=== PATIENT | male | born 1960 | race African-American/Black ===

== ENCOUNTER → 2020-06-14 11:17 | Outpatient (BNVA) | payer MEDICARE, MEDICAID, SELFPAY | PROVIDERS: PCP Internal Medicine Geriatric Medicine; Visit Provider Surgery Vascular Surgery | DX: I83.12 Varicose veins of left lower extremity with inflammation (principal) | CPT/HCPCS: 99203 ==

== ENCOUNTER 2020-06-23 12:49 | Outpatient (REF) | payer MEDICARE, MEDICAID, SELFPAY ==
--- NOTE | 2020-06-23 12:52 | US_ITS ---
EXAMINATION: RIGHT and LEFT LOWER EXTREMITY VENOUS ULTRASOUND (Reflux Exam) CLINICAL INDICATION: Varicose veins with inflammation COMPARISON: None. TECHNIQUE: Color flow triplex imaging and compression Doppler was performed to evaluate both the deep and the superficial systems bilaterally. To evaluate the superficial system, the examination was performed in the upright position. Color-flow Doppler ultrasound and compression ultrasound were utilized. In addition, maneuvers were utilized to demonstrate reflux. FINDINGS: 1. DEEP VENOUS ULTRASOUND OF THE RIGHT LOWER EXTREMITY: Respiratory variation, normal compression and augmented flow are noted in the right common femoral vein as well as the right popliteal vein and there is no evidence of deep venous thrombosis at these locations. There is no evidence of reflux in the deep system in either the common femoral vein or the popliteal vein. There is some reflux seen in the mid superficial femoral vein of approximately 1.5 seconds but not at the saphenofemoral junction. There is no evidence of a popliteal fossa cyst. No popliteal artery aneurysm. 2. SUPERFICIAL ULTRASOUND WITH DOPPLER OF RIGHT LOWER EXTREMITY: The right great saphenous vein at the saphenofemoral junction measures 7 mm, at the mid thigh 4 mm, dusiv-usj-[id number] 4 mm, sjkbd-[id number]-[id number] 4 mm, at mid calf 3 mm with nonsignificant reflux, and at the ankle measures 3 mm. There is no reflux demonstrated in the right great saphenous vein. The right small saphenous vein measures 2 mm and shows no reflux. 3. DEEP VENOUS ULTRASOUND OF THE LEFT LOWER EXTREMITY: Respiratory variation, normal compression and augmented flow are noted in the left common femoral vein as well as the left popliteal vein and there is no evidence of deep venous thrombosis at these locations. There is no evidence of reflux in the deep system in either the common femoral vein or the popliteal vein. . There is no evidence of a popliteal fossa cyst. No popliteal artery aneurysm. 4. SUPERFICIAL ULTRASOUND WITH DOPPLER OF LEFT LOWER EXTREMITY: Left great saphenous vein at the saphenofemoral junction measures 6 mm, at the mid thigh 9 mm, lwjbm-[id number] 6 mm, mrrrn-ipp-zdef 4 mm, at mid calf 3 mm and at the ankle measures 3 mm. There is no reflux at the saphenofemoral junction. There is reflux up to 2.7 seconds only at the ankle.. The left small saphenous vein measures 4 mm and shows no reflux. US/US venous duplex LE BI IMPRESSION: 1. No evidence of reflux or thrombus in the common femoral veins or popliteal veins bilaterally. 2. The saphenous systems are patent bilaterally. No reflux at the saphenofemoral junctions.
== END 2020-06-23 12:50 | disposition home or self-care (01) ==
LOC: HO.US 12:49
PROVIDERS: PCP Internal Medicine Geriatric Medicine; Visit Provider Surgery Vascular Surgery
DX: I83.12 Varicose veins of left lower extremity with inflammation (principal)
CPT/HCPCS: 93970

== ENCOUNTER → 2020-06-28 08:56 | Outpatient (BNVA) | payer MEDICARE, MEDICAID, SELFPAY | PROVIDERS: PCP Internal Medicine Geriatric Medicine; Referring Provider Internal Medicine Geriatric Medicine; Visit Provider Nurse Practitioner | DX: K58.2 Mixed irritable bowel syndrome (principal); R14.0 Abdominal distension (gaseous); D12.2 Benign neoplasm of ascending colon; B37.0 Candidal stomatitis; Z98.890 Other specified postprocedural states | CPT/HCPCS: 99213 ==

== ENCOUNTER 2020-10-06 09:42 | Outpatient (REF) | payer MEDICARE, MEDICAID, SELFPAY ==
--- NOTE | 2020-10-06 | US_ITS ---
EXAMINATION: US ABDOMEN COMPLETE CLINICAL INFORMATION: Right upper quadrant pain. COMPARISON: Renal ultrasound 09/15/2018. Ultrasound abdomen 01/10/2018. TECHNIQUE: Real-time imaging of the abdominal viscera. FINDINGS: PANCREAS: Pancreatic head and body are unremarkable. The tail is obscured by gas. ABDOMINAL AORTA: The proximal and mid segments are normal. The distal aspect is not visualized due to bowel gas. INFERIOR VENA CAVA: Visualized portions are normal. LIVER: The liver is normal in size. The liver contour is normal. There is diffuse increased liver parenchymal echogenicity, consistent with hepatic steatosis. No focal hepatic lesion. There is no intrahepatic biliary duct dilatation seen. GALLBLADDER: Normal. The gallbladder is physiologically distended without evidence of stones, sludge, polyps, wall thickening or pericholecystic fluid. COMMON BILE DUCT: Normal in caliber measuring 0.4 cm in diameter. RIGHT KIDNEY: There is a echogenic focus at the midpole cortex measuring 0.2 cm which could represent a calculus. There is a complex cyst at the midpole measuring 0.9 cm with internal thin septation. No hydronephrosis or renal calculi. The kidney measures 10.7 cm in maximum dimension. LEFT KIDNEY: Lobulated Contour. No hydronephrosis. No renal calculi or focal parenchymal lesions. The kidney measures 11.0 cm in maximum dimension. SPLEEN: Normal. The spleen measures 9.8 cm in maximum dimension. FREE FLUID: None. US/US abdomen complete IMPRESSION: Hepatic steatosis. Unremarkable appearance of the gallbladder. Septated cyst at the midpole of the right kidney. This is similar to prior.
== END 2020-10-06 09:43 | disposition home or self-care (01) ==
LOC: HO.US 09:42
PROVIDERS: Visit Provider Family Medicine
DX: R10.11 Right upper quadrant pain (principal)
CPT/HCPCS: 76700

== ENCOUNTER 2021-01-25 13:00 | Outpatient (RCR) | payer MEDICARE, MEDICAID, SELFPAY | END 2021-03-03 09:37 | disposition home or self-care (01) | LOC: HO.PT 13:00 | PROVIDERS: PCP Internal Medicine Geriatric Medicine; Visit Provider Physician Assistant | DX: M54.5 Low back pain (principal); M48.061 Spinal stenosis, lumbar region without neurogenic claudication | CPT/HCPCS: 97110; 97162 ==

== ENCOUNTER 2021-10-02 14:06 | Outpatient (REF) | payer MEDICARE, MEDICAID, SELFPAY ==
[2021-10-02 15:14] LABS: MANUAL DIFF FLAG NO
[2021-10-02 15:33] LABS: Basophils Percent Auto 0.2 % (0-2); Eosinophils Absolute Auto 0.1 X10*3/uL (0.0-0.4); Eosinophils Percent Auto 1.7 % (0-4); Hematocrit 41.2 % (42.0-52.0); Hemoglobin 13.8 g/dl (14.0-18.0); Imm Gran Abs Auto 0.01 X10*3/uL (0.00-0.03); Imm Gran Pct Auto 0.2 % (0.0-0.4); Lymphocytes Absolute Auto 1.5 X10*3/uL (1.2-4.9); Lymphocytes Percent Auto 31.9 % (20-40); Mean Corpuscular HGB Conc 33.5 g/dl (31.0-36.0); Mean Corpuscular Hemoglobin 31.9 pg (27.0-33.0); Mean Corpuscular Volume 95.4 fL (80.0-98.0); Mean Platelet Volume 10.4 fL (9.4-12.4); Monocytes Absolute Auto 0.4 X10*3/uL (0.1-1.2); Monocytes Percent Auto 9.2 % (2-11); Neutrophils Absolute Auto 2.7 x10*3/uL (2.0-8.3); Neutrophils Percent Auto 56.8 % (45-73); Platelet Count 151 X10*3/uL (160-400); Red Blood Count 4.32 X10*6/uL (4.60-5.80); Red Cell Distribution Width 12.3 % (11.0-16.0); White Blood Count 4.8 X10*3/uL (4.8-10.8)
[2021-10-02 15:59] LABS: Alanine Aminotransferase 33 U/L (0-40); Albumin Level 4.6 g/dL (3.5-5.0); Alkaline Phosphatase 63 U/L (39-117); Anion Gap 11 (12-20); Aspartate Amino Transferase 31 U/L (5-37); Blood Urea Nitrogen 15 mg/dL (9-16); Calcium 10.3 mg/dL (8.4-10.2); Carbon Dioxide 28 mmol/L (22-29); Chloride 105 mmol/L (96-108); Estimated Glomerular Filt Rate > 60; Glucose Random 98 mg/dL (60-115); Potassium 4.4 mmol/L (3.3-5.1); Sodium 140 mmol/L (135-145); Total Protein 8.3 g/dL (6.5-8.0)
[2021-10-02 16:21] LABS: TSH reflex Free T4 2.01 uIU/mL (0.32-4.0)
== END 2021-10-02 14:07 | disposition home or self-care (01) ==
LOC: HO.LAB 14:06
PROVIDERS: PCP Internal Medicine Geriatric Medicine; Referring Provider Internal Medicine Geriatric Medicine; Visit Provider Nurse Practitioner
DX: K59.04 Chronic idiopathic constipation (principal); D12.6 Benign neoplasm of colon, unspecified; Z12.11 Encounter for screening for malignant neoplasm of colon
CPT/HCPCS: 36415; 80053; 84443; 85025; 99212

== ENCOUNTER → 2021-11-03 14:24 | Outpatient (BNVA) | payer MEDICARE, MEDICAID, SELFPAY | PROVIDERS: PCP Internal Medicine Geriatric Medicine; Visit Provider Nurse Practitioner | DX: K59.04 Chronic idiopathic constipation (principal); D12.6 Benign neoplasm of colon, unspecified | CPT/HCPCS: 99212 ==

== ENCOUNTER 2022-03-08 05:16 | Emergency (ER) | payer MEDICARE, MEDICAID, SELFPAY ==
[2022-03-08 05:23] VITALS: BP 166/90; PULSE 72; RESP 16; TEMP 36.7; O2SAT 96; BMI 28.7
--- NOTE | 2022-03-08 05:38 | ECG_ITS ---
Test Reason : ABDOMINAL PAIN Blood Pressure : / mmHG Vent. Rate : 068 BPM Atrial Rate : 068 BPM P-R Int : 168 ms QRS Dur : 090 ms QT Int : 404 ms P-R-T Axes : 065 009 027 degrees QTc Int : 429 ms Normal sinus rhythm Normal ECG No previous ECGs available Referred By: Anabela Luevano Electronically Signed By:Brent Navas
--- NOTE | 2022-03-08 05:39 | ED.GENADULT ---
HPI - General Adult General Chief complaint: General Medical Stated complaint: unable to urinate, constipation Time Seen by Provider: 03/08/22 05:34 Source: patient Mode of arrival: ambulatory Limitations: no limitations History of Present Illness HPI narrative: Patient comes to the emergency room complaining of abdominal pain. Patient states that he has been unable to pass significant amounts of urine for 2 days, patient states that he also have rectal pressure. Also complaining of diffuse abdominal distension. Patient denies nausea vomiting or diarrhea, no fever chills Related Data Home Medications Medication Instructions Recorded Confirmed albuterol sulfate 90 mcg/actuation 2 puff inhalation Q4-6H PRN 06/14/20 12/22/21 aerosol inhaler (Ventolin HFA) Wheezing ammonium lactate 12 % topical cream 1 applic topical BID 06/14/20 12/22/21 bupropion HCl 150 mg 24 hr tablet, 150 mg PO QAM 06/14/20 12/22/21 extended release chlorhexidine gluconate 0.12 % 15 ml buccal BID 06/14/20 12/22/21 mouthwash (Periogard) cyclobenzaprine 10 mg tablet 10 mg PO TID 06/14/20 12/22/21 diclofenac sodium 1 % topical gel 2 g topical QID 06/14/20 12/22/21 (Voltaren) fluticasone propionate 50 1 spray intranasal DAILY 06/14/20 12/22/21 mcg/actuation nasal spray,suspension levocetirizine 5 mg tablet 5 mg PO DAILY 06/14/20 12/22/21 nabumetone 750 mg tablet 750 mg PO BID 06/14/20 12/22/21 sertraline 50 mg tablet 50 mg PO DAILY 06/14/20 12/22/21 tamsulosin 0.4 mg capsule 0.4 mg PO DAILY 06/14/20 12/22/21 terbinafine HCl 1 % topical cream 1 applic topical BID 06/14/20 12/22/21 triamcinolone acetonide 0.5 % 1 applic topical BID 06/14/20 12/22/21 topical cream sildenafil 100 mg tablet (Viagra) 0.5 tab PO DAILY PRN Sexual 12/22/21 12/22/21 Activity Previous Rx's Medication Instructions Recorded nystatin 100,000 unit/mL oral 1 ml PO TID #473 mL 06/28/20 suspension peg 3350-electrolytes 236 240 ml PO Q10M 1 day #4,000 mL 10/02/21 gram-22.74 gram-6.74 gram-5.86 gram solution (Golytely) sennosides 8.6 mg capsule (senna) 17.2 mg PO BEDTIME constipation 30 10/02/21 days #60 caps docusate sodium 100 mg capsule 100 mg PO .DAILY WITH FOOD 30 days 11/03/21 (Colace) #30 caps polyethylene glycol 3350 17 17 g PO BID #238 grams 03/08/22 gram/dose oral powder (Miralax) tamsulosin 0.4 mg capsule 0.4 mg PO BEDTIME #10 caps 03/08/22 Allergies Allergy/AdvReac Type Severity Reaction Status Date / Time No Known Allergies Allergy Verified 12/22/21 13:42 [No Known Allergies*] Review of Systems Review of Systems: Constitutional : No Weight loss, No Fever, No Chills, No Night Sweats, No Fatigue, No Malaise ENT/Mouth : No Hearing loss, No Ear Pain, No Nasal Congestion, No Sinus Pain, No Hoarseness, No sore throat, No Rhinorrhea, No Swallowing Difficulty Eyes: No Eye Pain, No Swelling, No Redness, No Foreign Body, No Discharge, No Vision Changes Cardiovascular : No Chest Pain, No SOB, No Dyspnea on Exertion, No Orthopnea, No Edema, No Palpitations Respiratory : No Cough, No Sputum, No Wheezing, No Smoke Exposure, No Dyspnea Gastrointestinal : No nausea vomiting or diarrhea, complaining of abdominal distension, suprapubic pain, rectal pressure Genitourinary : no irregular bleeding, No Dysuria, No Urinary Frequency, No Hematuria, No Urinary Incontinence, No Urgency, No Flank Pain, No Urinary Flow Changes, No Hesitancy Musculoskeletal : No joint pain, No Myalgias, No Joint Swelling Skin : No Skin Lesions, No rash Neuro : No Weakness, No Numbness, No Paresthesias, No Loss of Consciousness, No Dizziness, No Headache Psych : No Anxiety/Panic, No Depression, No SI/HI/AH/VH, No Social Issues, Heme/Lymph: No Bruising, No Bleeding,No Lymphadenopathy Endocrine : No Polyuria, No Polydipsia, No Temperature Intolerance [facility] Past Medical History Medical History Anxiety Blurred vision, bilateral Depression Fatty liver HTN (hypertension) Hx of simple renal cyst PVC (premature ventricular contraction) Surgical History History of colonoscopy Hx of endoscopy Family History Family History Father No problems noted. Mother History of cancer Social History Social History Alcohol intake: current Alcohol intake frequency: a few times a month Advance Directives: No Advance Directives Information Provided: Yes Physical Exam ED Vital Signs: Vital Signs - 24 hr 03/08/22 05:23 Temperature 98.0 F Pulse Rate 72 Respiratory Rate 16 Blood Pressure 166/90 H Pulse Oximetry 96 Oxygen Delivery Method Room Air BMI result Body Mass Index 28.7 Const Other: Appearance: Alert. Oriented X3. No acute distress. Eyes: Pupils equal, round and reactive to light. ENT: Pharynx normal. Neck: Normal inspection. Neck supple. No lymph nodes noted. No crepitus CVS: Normal heart rate and rhythm. Pulses normal. Normal S1 and S2 Respiratory: No respiratory distress. Breath sounds normal. No Wheezing. No rales Abdomen: Soft , moderately distended, tender to palpation over the suprapubic area Skin: Skin warm and dry. Normal skin color. Normal skin turgor. Extremities: No lower extremity edema. No Lacerations. No Rash Neuro: Oriented X 3. No motor deficit. No sensory deficit. Moving all extremities. No slurred speech. CN 2 through 12 grossly intact Psych: calm, cooperative, normal affect Course Course Course Narrative: Patient was bladder scanned, patient has 886 mL of urine. Patient unable to urinate. Nino catheter will be inserted Patient's chemistry is pending. Urinalysis negative for UTI, white blood cell count within normal limits. Is likely that all of patient's symptoms are secondary to urinary retention. This is the 1st time the patient has urinary retention. Patient states that he suffers from chronic constipation, when it becomes severe, he sometimes has urinary retention. Medical Decision Making Lab Data Result diagrams: 03/08/22 05:57 03/08/22 05:57 Labs: Lab Results 03/08/22 03/08/22 03/08/22 Range/Units 05:57 05:57 06:13 WBC 5.5 (4.8-10.8) X10*3/uL RBC 4.18 L (4.60-5.80) X10*6/uL Hgb 13.5 L (14.0-18.0) g/dl Hct 39.1 L (42.0-52.0) % MCV 93.5 (80.0-98.0) fL MCH 32.3 (27.0-33.0) pg MCHC 34.5 (31.0-36.0) g/dl RDW 12.4 (11.0-16.0) % Plt Count 145 L (160-400) X10*3/uL MPV 9.9 (9.4-12.4) fL Immature Gran % (Auto) 0.2 (0.0-0.4) % Neut % (Auto) 68.5 (45-73) % Lymph % (Auto) 20.6 (20-40) % [place] % (Auto) 9.0 (2-11) % Eos % (Auto) 1.5 (0-4) % Baso % (Auto) 0.2 (0-2) % Lymph # (Auto) 1.1 L (1.2-4.9) X10*3/uL [place] # (Auto) 0.5 (0.1-1.2) X10*3/uL Eos # (Auto) 0.1 (0.0-0.4) X10*3/uL Baso # (Auto) 0.0 (0.0-0.2) X10*3/uL Abs Immat Gran (auto) 0.01 (0.00-0.03) X10*3/uL Absolute Neuts (auto) 3.7 (2.0-8.3) x10*3/uL Absolute Nucleated RBC 0.000 (0.0-0.012) X10*3/uL Nucleated RBC % (auto) 0.0 (0.0-0.2) /100WBC Sodium 141 (135-145) mmol/L Potassium 4.2 (3.3-5.1) mmol/L Chloride 108 (96-108) mmol/L Carbon Dioxide 25 (22-29) mmol/L Anion Gap 12 (12-20) BUN 16 (9-16) mg/dL Creatinine 0.93 (0.5-1.4) mg/dL Estim Creat Clear Calc 94.9 Estimated GFR > 60 Random Glucose 136 H D (60-115) mg/dL Calcium 9.3 D (8.4-10.2) mg/dL Total Bilirubin 0.6 (0.0-1.0) mg/dL Direct Bilirubin 0.3 (0.0-0.5) mg/dL AST 46 H D (5-37) U/L ALT 81 H (0-40) U/L Alkaline Phosphatase 60 (39-117) U/L Total Protein 7.7 (6.5-8.0) g/dL Albumin 4.4 (3.5-5.0) g/dL Lipase 24 (8-78) U/L Urine Color YELLOW Urine Appearance CLEAR Urine pH 6.0 (5.0-8.0) Ur Specific [place] 1.015 (1.005-1.025) Urine Protein NEG (NEG-TRACE) MG/DL Urine Glucose (UA) NEG (NEG) MG/DL Urine Ketones NEG (NEG) MG/DL Urine Blood TRACE (NEG) Urine Nitrite NEG (NEG) Ur Leukocyte Esterase NEG (NEG) Urine RBC 1-4 (0) /HPF Urine WBC 0 (0-4) /HPF Ur Squamous Epith Cells TRACE /LPF Urine Bacteria TRACE /LPF Urine Mucus 1+ /LPF Discharge Plan Discharge Clinical Impression: Acute urinary retention, Constipation Patient Disposition: Home, Self-Care Instructions: Acute Urinary Retention in Women (ED) Additional Instructions: You need to follow-up with urology in 2 days to have your Nino catheter removed. Please follow-up with your primary care physician tomorrow. If you have any worsening or new symptoms, please return to the emergency room or call 911 Prescriptions: New tamsulosin 0.4 mg capsule 0.4 mg PO BEDTIME Qty: 10 0RF polyethylene glycol 3350 [Miralax] 17 gram/dose powder 17 g PO BID Qty: 238 0RF No Action sildenafil [Viagra] 100 mg tablet 0.5 tab PO DAILY PRN (Reason: Sexual Activity) chlorhexidine gluconate [Periogard] 0.12 % mouthwash 15 ml buccal BID albuterol sulfate [Ventolin HFA] 90 mcg/actuation HFA aerosol inhaler 2 puff inhalation Q4-6H PRN (Reason: Wheezing) nabumetone 750 mg tablet 750 mg PO BID diclofenac sodium [Voltaren] 1 % gel 2 g topical QID Rx Instructions: apply to single elbow, wrist or hand; for hand includes palm/fingers/back of hand fluticasone propionate 50 mcg/actuation spray,suspension 1 spray intranasal DAILY Rx Instructions: administer into each nostril levocetirizine 5 mg tablet 5 mg PO DAILY sertraline 50 mg tablet 50 mg PO DAILY bupropion HCl 150 mg tablet extended release 24 hr 150 mg PO QAM cyclobenzaprine 10 mg tablet 10 mg PO TID tamsulosin 0.4 mg capsule 0.4 mg PO DAILY terbinafine HCl 1 % cream 1 applic topical BID triamcinolone acetonide 0.5 % cream 1 applic topical BID ammonium lactate 12 % cream 1 applic topical BID nystatin 100,000 unit/mL suspension 1 ml PO TID Qty: 473 0RF Rx Instructions: swish and swallow senna 8.6 mg capsule 17.2 mg PO BEDTIME 30 Days Qty: 60 6RF peg 3350-electrolytes [Golytely] 236-22.74-6.74 -5.86 gram recon soln 240 ml PO Q10M 1 Days Qty: 4000 0RF Rx Instructions: until fecal effluent is clear; do not exceed a total volume of 2,000 mL docusate sodium [Colace] 100 mg capsule 100 mg PO .DAILY WITH FOOD 30 Days Qty: 30 6RF Referrals: James Singh MD [Physician] - 2 days
[2022-03-08 06:01] LABS: MANUAL DIFF FLAG NO
[2022-03-08 06:05] LABS: Basophils Percent Auto 0.2 % (0-2); Eosinophils Absolute Auto 0.1 X10*3/uL (0.0-0.4); Eosinophils Percent Auto 1.5 % (0-4); Hematocrit 39.1 % (42.0-52.0); Hemoglobin 13.5 g/dl (14.0-18.0); Imm Gran Abs Auto 0.01 X10*3/uL (0.00-0.03); Imm Gran Pct Auto 0.2 % (0.0-0.4); Lymphocytes Absolute Auto 1.1 X10*3/uL (1.2-4.9); Lymphocytes Percent Auto 20.6 % (20-40); Mean Corpuscular HGB Conc 34.5 g/dl (31.0-36.0); Mean Corpuscular Hemoglobin 32.3 pg (27.0-33.0); Mean Corpuscular Volume 93.5 fL (80.0-98.0); Mean Platelet Volume 9.9 fL (9.4-12.4); Monocytes Absolute Auto 0.5 X10*3/uL (0.1-1.2); Neutrophils Absolute Auto 3.7 x10*3/uL (2.0-8.3); Neutrophils Percent Auto 68.5 % (45-73); Platelet Count 145 X10*3/uL (160-400); Red Blood Count 4.18 X10*6/uL (4.60-5.80); Red Cell Distribution Width 12.4 % (11.0-16.0); White Blood Count 5.5 X10*3/uL (4.8-10.8)
[2022-03-08 06:20] LABS: Appearance Urine CLEAR; Color Urine YELLOW; Glucose Urine UA NEG (NEG); Leukocyte Esterase Urine NEG (NEG); Nitrite Urine NEG (NEG); Specific Gravity - Urine 1.015 (1.005-1.025); UACC Culture Trigger NO; Urine Blood TRACE (NEG); Urine Ketones NEG (NEG); Urine Protein NEG (NEG-TRACE)
[2022-03-08 06:26] LABS: Bacteria Urine TRACE /LPF; Mucus Urine 1+ /LPF; Squamous Epithelial Cell Urine TRACE /LPF; WBC Urine 0 /HPF (0-4)
[2022-03-08 06:28] LABS: Alanine Aminotransferase 81 U/L (0-40); Albumin Level 4.4 g/dL (3.5-5.0); Alkaline Phosphatase 60 U/L (39-117); Anion Gap 12 (12-20); Aspartate Amino Transferase 46 U/L (5-37); Bilirubin Direct 0.3 mg/dL (0.0-0.5); Bilirubin Total 0.6 mg/dL (0.0-1.0); Blood Urea Nitrogen 16 mg/dL (9-16); Calcium 9.3 mg/dL (8.4-10.2); Carbon Dioxide 25 mmol/L (22-29); Chloride 108 mmol/L (96-108); Creatinine Clr Calc Pharmacy 94.9; Estimated Glomerular Filt Rate > 60; Glucose Random 136 mg/dL (60-115); Lipase 24 U/L (8-78); Potassium 4.2 mmol/L (3.3-5.1); Sodium 141 mmol/L (135-145); Total Protein 7.7 g/dL (6.5-8.0)
[2022-03-08 07:02] VITALS: BP 115/77; PULSE 58; RESP 16; TEMP 36.6; O2SAT 96
== END 2022-03-08 07:39 | disposition home or self-care (01) ==
PROVIDERS: Emergency Provider Emergency Medicine; PCP Internal Medicine
DX: R33.9 Retention of urine, unspecified (principal); R10.9 Unspecified abdominal pain; K59.00 Constipation, unspecified; Z79.899 Other long term (current) drug therapy
CPT/HCPCS: 36415; 51702; 51798; 80048; 80076; 81001; 83690; 85025; 93005; 99284

== ENCOUNTER → 2022-03-23 09:04 | Outpatient (BNVA) | payer MEDICARE, MEDICAID, SELFPAY | PROVIDERS: PCP Internal Medicine; Visit Provider Urology | DX: Z46.6 Encounter for fitting and adjustment of urinary device (principal); R33.9 Retention of urine, unspecified | CPT/HCPCS: 51700; 51798 ==

== ENCOUNTER 2022-03-27 13:28 | Outpatient (REF) | payer MEDICARE, MEDICAID, SELFPAY ==
[2022-03-27 14:55] LABS: Appearance Urine CLEAR; Color Urine YELLOW; Glucose Urine UA NEG (NEG); Leukocyte Esterase Urine 1+ (NEG); Nitrite Urine NEG (NEG); PH 5.5 (5.0-8.0); Specific Gravity - Urine 1.025 (1.005-1.025); Urine Blood NEG (NEG); Urine Ketones NEG (NEG); Urine Protein NEG (NEG-TRACE)
[2022-03-27 15:06] LABS: Bacteria Urine 1+ /LPF; RBC Urine 0 /HPF (0); Squamous Epithelial Cell Urine 1+ /LPF
== END 2022-03-27 13:29 | disposition home or self-care (01) ==
LOC: HO.LAB 13:28
PROVIDERS: PCP Internal Medicine; Visit Provider Urology
DX: R33.9 Retention of urine, unspecified (principal)
CPT/HCPCS: 81001; 87086

== ENCOUNTER 2022-04-24 11:00 | Day surgery (SDC) | payer MEDICARE, MEDICAID, SELFPAY ==
--- NOTE | 2022-04-24 10:48 | HO.ANESPROP2 ---
HPI - Anesthesia Eval Consult details Narrative: 62 yo male patient for colonoscopy PMFSH Active Problems Active Problems: All Active Problems (Updated 04/02/22 @ 08:57 by Lisette Flores MD) Overweight (BMI 25.0-29.9) (Acute) Anxiety (Acute) Chronic GERD (Acute) Mild recurrent major depression (Acute) Urinary retention (Acute) Varicose veins of left lower extremity with inflammation (Acute) Abdominal bloating (Acute) Pedunculated colonic polyp (Acute) Epigastric burning sensation (Acute) Tubulovillous adenoma of large intestine (Acute) Oral kamron (Acute) Leg pain, bilateral (Acute) Chronic idiopathic constipation (Acute) Past Medical History Medical History Anxiety Blurred vision, bilateral Depression Fatty liver HTN (hypertension) Hx of simple renal cyst PVC (premature ventricular contraction) Family History Family History Father No problems noted. Mother History of cancer Family history of problems with anesthesia: No Surgical History Surgical History History of colonoscopy Hx of endoscopy History of Problems with Anesthesia: No Social History Social History Housing: Apartment Alcohol intake: current Alcohol intake frequency: a few times a month Alcohol type: beer Patient Tobacco Use Status: Never used Tobacco e-Cigarette/Vaping Use: Never Used Second Hand Smoke Exposure: No Advance Directives: No Advance Directives Information Provided: Yes service: No Current occupational status: disabled Cognitive needs: No Hearing needs: No Vision needs: No Meds Allergies Allergy/AdvReac Type Severity Reaction Status Date / Time No Known Allergies Allergy Verified 03/29/22 13:19 [No Known Allergies*] Active Medications: No sildenafil in over 2 weeks Home Medications Medication Instructions Recorded Confirmed Last Taken Type ammonium lactate 12 % topical cream 1 applic topical BID 06/14/20 03/29/22 Unknown History bupropion HCl 150 mg 24 hr tablet, 150 mg PO QAM 06/14/20 03/29/22 Unknown History extended release chlorhexidine gluconate 0.12 % 15 ml buccal BID 06/14/20 03/29/22 Unknown History mouthwash (Periogard) cyclobenzaprine 10 mg tablet 10 mg PO TID 06/14/20 03/29/22 Unknown History diclofenac sodium 1 % topical gel 2 g topical QID 06/14/20 03/29/22 Unknown History (Voltaren) fluticasone propionate 50 1 spray intranasal DAILY 06/14/20 03/29/22 Unknown History mcg/actuation nasal spray,suspension levocetirizine 5 mg tablet 5 mg PO DAILY 06/14/20 03/29/22 Unknown History nabumetone 750 mg tablet 750 mg PO BID 06/14/20 03/29/22 Unknown History sertraline 50 mg tablet 50 mg PO DAILY 06/14/20 03/29/22 Unknown History terbinafine HCl 1 % topical cream 1 applic topical BID 06/14/20 03/29/22 Unknown History triamcinolone acetonide 0.5 % 1 applic topical BID 06/14/20 03/29/22 Unknown History topical cream sildenafil 100 mg tablet (Viagra) 0.5 tab PO DAILY PRN Sexual 12/22/21 03/29/22 Unknown History Activity Exam Exam Date and Time: April 24, 2022 1048 Height,Weight and Vital Signs: Height 5 ft 11 in Weight 81.647 kg Vital Signs Temp Pulse Resp BP Pulse Ox O2 Del Method 04/24/22 11:30 96.8 F 61 16 147/78 H 99 Room Air Airway Mallampati Class: II TM Dist: >3cm Neck ROM: Full Loose/Missing/Broken Teeth: No (Denies broken or loose teeth) Heart: RRR Lungs: CTAB Assessment and Plan Assessment Anesthesia Assessment: Anesthesia Plan Discussed Final Anesthetic Review Family History of Problems with Anesthesia: No History of Problems with Anesthesia: No NPO: Yes ASA Class: II Final Preanesthetic Review: No Changes in Pt Med Stat, Meds/Allgs Chart Reviewed, Consent Obtained/Reviewed and Anes Risks/Benef Reviewed Patient Risk: Low Procedure Risk: Low Assessment/Block/Sedation in SS: Assess/Block/Sedation-SS Anesthetic Plan Anesthetic Plan: MAC: Disposition: Standard PACU
[2022-04-24 11:09] VITALS: BMI 25.1
--- NOTE | 2022-04-24 11:19 | MHC.SHP ---
Pre-Procedural Eval Section A Date of Service: 04/24/22 Section B Chief Complaint: benign neoplasm of colon Details of Present Illness: hx of colon polyp Relevant Family History (Specify if Yes): No Relevant Social History: None Present Medications: see Short Stay Collaborative assessment Medical History: Significant History (Anxiety Blurred vision, bilateral Depression Fatty liver HTN (hypertension) Hx of simple renal cyst PVC (premature ventricular contraction)) History of Previous Operations: Relevant previous surgery/procedure and date(s) (History of colonoscopy Hx of endoscopy) Allergies: Allergies Allergy/AdvReac Type Severity Reaction Status Date / Time No Known Allergies Allergy Verified 03/29/22 13:19 [No Known Allergies*] Review of Systems Sugical H&P ROS: Negative: Constitution, Cardiovascular, Respiratory, Neurological, Psychiatric, Hem-Onc, Allergic/Immunologic, Gastrointestinal, Genitourinary, Musculoskeletal, Integumentary, Endocrine and Eyes/Ears/Nose/Throat Exam Surgical H&P Exam: Normal: HEENT, Normal: Heart, Normal: Lungs, Normal: Extremities, Normal: Abdomen, Normal: Skin and Normal: Neurological Plan Diagnosis/Plan: Unchanged I have reviewed the history and physical and performed a pertinent physical examination on my patient. No changes have occurred unless specified.
[2022-04-24 11:30] VITALS: BP 147/78; PULSE 61; RESP 16; TEMP 36; O2SAT 99
[2022-04-24] MEDS: Lactated Ringers 1,000 ML 50 ML IVCONT (11:44)
--- NOTE | 2022-04-24 12:31 | P.OP_ITS ---
Operative Note Operative Note Date of Service: 04/24/22 Narrative: Operative Information Procedure Description: Colonoscopy Indication: screening, hx of polyps Anesthesia: MAC COLONOSCOPY Instrument: Olympus variable stiffness pediatric scope 190L Colonoscopy Monitoring: Vital signs and clinical assessment, continuous EKG monitoring, Pulse oximetry, Carbon Dioxide monitoring and blood pressure monitoring were done throughout the procedure. Colon withdrawal time was 10 minutes. Procedure: The patient was placed in the left lateral decubitis position and pre-procedure medications were administered. After a digital rectal examination of the ano-rectum, the video colonoscope was inserted into the rectum and advanced through the colon to the cecum/TI. The colonoscope was slowly withdrawn in a retrograde panoramic fashion and the colon mucosa was carefully examined including a retroflexed view of the rectum. Findings and interventions are described below. Procedure Difficulty: easy Findings: Terminal Ileum-normal Cecum:normal Ascending Colon: x 3 sessile polyps 10-12 mm removed with cold snare. One polyp was close to a previously tattooed area. Transverse Colon -normal Descending Colon:normal Sigmoid Colon: mild diverticulosis, 8-10 mm sessile polyp removed with cold snare Rectum: Retroflexion with moderate sized internal hemorrhoids, grade I Anorectum - normal Colon preparation: [place] Bowel Preparation Scale Right colon; 3 Transverse colon: 3 Left colon; 3 (0 = Unprepared colon segment with mucosa not seen due to solid stool that cannot be cleared. 1 = Portion of mucosa of the colon segment seen, but other areas of the colon segment not well seen due to staining, residual stool and/or opaque liquid. 2 = Minor amount of residual staining, small fragments of stool and/or opaque liquid, but mucosa of colon segment seen well. 3 = Entire mucosa of colon segment seen well with no residual staining, small fragments of stool or opaque liquid) Impression and Post Procedure Diagnosis: polyps internal hemorrhoids diverticular disease Plan: High fiber diet leaflet Avoid straining at stool, epsom salts and sitz bath, anusol supps or cream Repeat Colonoscopy in 3 years due to hx of polyps or earlier if clinically indicated o/p EGD due to upper GI sx Above findings were reviewed with the patient and relevant handouts were provided if indicated.
[2022-04-24 12:36] VITALS: BP 90/48; PULSE 52; RESP 16; TEMP 36.2; O2SAT 100
[2022-04-24 12:51] VITALS: BP 108/64; PULSE 55; RESP 16; O2SAT 100
[2022-04-24 13:05] VITALS: BP 125/75; PULSE 66; RESP 16; O2SAT 99
[2022-04-24 13:19] VITALS: BP 158/87; PULSE 54; RESP 16; TEMP 36.6; O2SAT 100
--- NOTE | 2022-04-24 13:51 | PC.NURSE ---
PATIENT TAKING DOOR TO DOOR VAN HOME. PATIENT GIVEN Elizabeth SANCHEZ'S PHONE NUMBER TO CALL WHEN HE GETS HOME TO LET US KNOW HE IS HOME SAFELY.
== END 2022-04-24 13:53 | disposition home or self-care (01) ==
PROVIDERS: PCP Internal Medicine Geriatric Medicine; Visit Provider Internal Medicine Gastroenterology
PROC: 0DJD8ZZ Inspection of Lower Intestinal Tract, Via Natural or Artificial Opening Endoscopic (ICD-10-PCS; CPT 45378; principal; 2022-04-24 12:40)
DX: Z12.11 Encounter for screening for malignant neoplasm of colon (principal); Z86.010 Personal history of colon polyps; D12.2 Benign neoplasm of ascending colon; D12.5 Benign neoplasm of sigmoid colon; K57.30 Diverticulosis of large intestine without perforation or abscess without bleeding; K64.0 First degree hemorrhoids; K59.04 Chronic idiopathic constipation; I10 Essential (primary) hypertension; Z79.899 Other long term (current) drug therapy
CPT/HCPCS: 45385; 88305

== ENCOUNTER 2022-04-27 11:59 | Outpatient (REF) | payer MEDICARE, MEDICAID, SELFPAY ==
[2022-04-27 12:33] LABS: MANUAL DIFF FLAG NO
[2022-04-27 13:40] LABS: Basophils Percent Auto 0.5 % (0-2); Eosinophils Absolute Auto 0.1 X10*3/uL (0.0-0.4); Eosinophils Percent Auto 1.2 % (0-4); Hematocrit 38.7 % (42.0-52.0); Hemoglobin 13.3 g/dl (14.0-18.0); Imm Gran Abs Auto 0.01 X10*3/uL (0.00-0.03); Imm Gran Pct Auto 0.2 % (0.0-0.4); Lymphocytes Absolute Auto 1.1 X10*3/uL (1.2-4.9); Lymphocytes Percent Auto 28.4 % (20-40); Mean Corpuscular HGB Conc 34.4 g/dl (31.0-36.0); Mean Corpuscular Hemoglobin 32.2 pg (27.0-33.0); Mean Corpuscular Volume 93.7 fL (80.0-98.0); Mean Platelet Volume 10.1 fL (9.4-12.4); Monocytes Absolute Auto 0.4 X10*3/uL (0.1-1.2); Monocytes Percent Auto 10.4 % (2-11); Neutrophils Absolute Auto 2.4 x10*3/uL (2.0-8.3); Neutrophils Percent Auto 59.3 % (45-73); Platelet Count 178 X10*3/uL (160-400); Red Blood Count 4.13 X10*6/uL (4.60-5.80); Red Cell Distribution Width 12.1 % (11.0-16.0)
[2022-04-27 13:58] LABS: Alanine Aminotransferase 55 U/L (0-40); Albumin Level 4.5 g/dL (3.5-5.0); Alkaline Phosphatase 71 U/L (39-117); Anion Gap 13 (12-20); Aspartate Amino Transferase 44 U/L (5-37); Bilirubin Total 1.2 mg/dL (0.0-1.0); Blood Urea Nitrogen 12 mg/dL (9-16); Calcium 9.3 mg/dL (8.4-10.2); Carbon Dioxide 26 mmol/L (22-29); Chloride 104 mmol/L (96-108); Cholesterol 175 mg/dL; Estimated Glomerular Filt Rate > 60; Glucose Fasting 92 mg/dL (60-99); HDL Cholesterol 47 mg/dL; LDL Cholesterol Calculated 112 mg/dl; Potassium 4.2 mmol/L (3.3-5.1); Sodium 139 mmol/L (135-145); Total Protein 7.9 g/dL (6.5-8.0); Triglycerides 80 mg/dL
[2022-04-27 14:23] LABS: Appearance Urine Clear; Color Urine Yellow; Glucose Urine UA Negative (Negative); Leukocyte Esterase Urine Negative (Negative); Nitrite Urine Negative (Negative); PH 5.5 (5.0-8.0); Specific Gravity - Urine 1.015 (1.005-1.025); Urine Blood Negative (Negative); Urine Ketones Negative (Negative); Urine Protein Negative (Neg-Trace)
[2022-04-27 14:26] LABS: Bacteria Urine None Seen (None Seen); Hyaline Casts Urine 0-2 /LPF (0-2); RBC Urine 0-2 /HPF (0-2); Squamous Epithelial Cell Urine 0-2 /HPF (0-2); WBC Urine 0-5 /HPF (0-5)
== END 2022-04-27 12:00 | disposition home or self-care (01) ==
LOC: HO.LAB 11:59
PROVIDERS: Absent Provider Urology; PCP Internal Medicine; Visit Provider Internal Medicine
DX: R33.9 Retention of urine, unspecified (principal); E66.3 Overweight; R10.13 Epigastric pain
CPT/HCPCS: 36415; 80053; 80061; 81001; 85025; 87086

== ENCOUNTER → 2022-05-08 14:11 | Outpatient (BNVA) | payer MEDICARE, MEDICAID, SELFPAY | PROVIDERS: PCP Internal Medicine; Visit Provider Nurse Practitioner | DX: K59.04 Chronic idiopathic constipation (principal); D12.6 Benign neoplasm of colon, unspecified; M25.551 Pain in right hip; M25.552 Pain in left hip | CPT/HCPCS: 73522; 74021; 99212 ==

== ENCOUNTER 2022-05-08 14:47 | Outpatient (REF) | payer MEDICARE, MEDICAID, SELFPAY ==
--- NOTE | ~2022-05-08 | XR_ITS ---
EXAMINATION: XR ABDOMEN WITH DECUBITUS VIEWS CLINICAL INDICATION: Chronic constipation. COMPARISON: Abdominal ultrasound dated 10/06/2020. TECHNIQUE: 4 supine and upright views of the abdomen and pelvis are submitted. FINDINGS: There is a moderate stool burden. No dominguez bowel obstruction, free intraperitoneal air or abscess is seen. There is gas and stool identified to the level of the rectum. No unusual soft tissue calcifications are noted. There is no acute osseous abnormality. There are degenerative changes of the thoracolumbar spine. XR/XR abdomen w decubitus IMPRESSION: There is a moderate stool burden, suggesting possible constipation. No dominguez bowel obstruction is seen.
--- NOTE | ~2022-05-08 | XR_ITS ---
EXAMINATION: XR BILATERAL HIPS WITH AP PELVIS CLINICAL INFORMATION: Bilateral hip pain. COMPARISON: None TECHNIQUE: AP and frog-leg lateral views of each hip and an AP view of the pelvis. FINDINGS: Bony alignment and mineralization are normal. The acetabular joint spaces are well-maintained. The bilateral acetabular roofs show subchondral sclerosis and peripheral osteophyte formation. The femoral heads appear smooth. There is no fracture or dislocation. The bilateral sacroiliac joints are symmetric, and the pubic symphysis is intact. There is incompletely characterized degenerative change of the lower lumbar spine. There are iliofemoral atherosclerotic calcifications. 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 No fracture or dislocation is seen.
== END 2022-05-08 14:48 | disposition home or self-care (01) ==
LOC: HO.XRAY 14:47
PROVIDERS: PCP Internal Medicine; Visit Provider Nurse Practitioner
DX: Z13.89 Encounter for screening for other disorder (principal)
CPT/HCPCS: 73522; 74021

== ENCOUNTER → 2022-05-16 14:05 | Outpatient (BNVA) | payer MEDICARE, MEDICAID, SELFPAY | PROVIDERS: PCP Internal Medicine; Visit Provider Urology | DX: N40.1 Benign prostatic hyperplasia with lower urinary tract symptoms (principal); N13.8 Other obstructive and reflux uropathy; R33.8 Other retention of urine | CPT/HCPCS: 99212 ==

== ENCOUNTER → 2022-06-05 14:18 | Outpatient (BNVA) | payer MEDICARE, MEDICAID, SELFPAY | PROVIDERS: PCP Internal Medicine; Visit Provider Nurse Practitioner | DX: K59.04 Chronic idiopathic constipation (principal); K21.9 Gastro-esophageal reflux disease without esophagitis; D12.6 Benign neoplasm of colon, unspecified; M16.9 Osteoarthritis of hip, unspecified | CPT/HCPCS: 99212 ==

== ENCOUNTER → 2022-07-12 14:04 | Outpatient (BNVA) | payer OTHER, SELFPAY | PROVIDERS: PCP Internal Medicine; Visit Provider Nurse Practitioner Family | DX: M62.838 Other muscle spasm (principal); M47.816 Spondylosis without myelopathy or radiculopathy, lumbar region; M53.3 Sacrococcygeal disorders, not elsewhere classified; M25.551 Pain in right hip; M25.552 Pain in left hip; M51.36 Other intervertebral disc degeneration, lumbar region | CPT/HCPCS: 99202 ==

== ENCOUNTER 2022-07-19 12:47 | Outpatient (REF) | payer OTHER, SELFPAY ==
--- NOTE | ~2022-07-19 | XR_ITS ---
EXAMINATION: XR LUMBAR SPINE WITH BENDING VIEWS XR SACROILIAC JOINTS CLINICAL INFORMATION: Sacrococcygeal disorder. Low back pain. COMPARISON: None TECHNIQUE: SI joint 3 views. Lumbar spine 7 views. FINDINGS: SI JOINTS: There is normal symmetry of SI joints without sclerosis. No fracture or lytic process seen. The soft tissues are normal. Vascular calcification of bilateral iliac veins are noted. LUMBAR SPINE: There is normal lumbar lordosis. Vertebral heights, alignment and disc heights are normal. There is moderate lateral spurring L2-L3 and L3-L4 disc levels. No lytic or sclerotic process seen. On oblique views no pars defect or listhesis seen. On flexion-extension views there is no subluxation seen. The flexion view is limited. Paravertebral soft tissues are normal. XR/XR sacroiliac joint min 3V IMPRESSION: Unremarkable SI joints. Unremarkable lumbar spine exam. There is no pars defect, listhesis or subluxation.
--- NOTE | ~2022-07-19 | XR_ITS ---
EXAMINATION: XR LUMBAR SPINE WITH BENDING VIEWS XR SACROILIAC JOINTS CLINICAL INFORMATION: Sacrococcygeal disorder. Low back pain. COMPARISON: None TECHNIQUE: SI joint 3 views. Lumbar spine 7 views. FINDINGS: SI JOINTS: There is normal symmetry of SI joints without sclerosis. No fracture or lytic process seen. The soft tissues are normal. Vascular calcification of bilateral iliac veins are noted. LUMBAR SPINE: There is normal lumbar lordosis. Vertebral heights, alignment and disc heights are normal. There is moderate lateral spurring L2-L3 and L3-L4 disc levels. No lytic or sclerotic process seen. On oblique views no pars defect or listhesis seen. On flexion-extension views there is no subluxation seen. The flexion view is limited. Paravertebral soft tissues are normal. XR/XR lumbar spine 6V w bending IMPRESSION: Unremarkable SI joints. Unremarkable lumbar spine exam. There is no pars defect, listhesis or subluxation.
== END 2022-07-19 12:48 | disposition home or self-care (01) ==
LOC: HO.XRAY 12:47
PROVIDERS: PCP Internal Medicine; Visit Provider Nurse Practitioner Family
DX: M53.3 Sacrococcygeal disorders, not elsewhere classified (principal); M47.816 Spondylosis without myelopathy or radiculopathy, lumbar region; M62.838 Other muscle spasm; K21.9 Gastro-esophageal reflux disease without esophagitis; K59.04 Chronic idiopathic constipation
CPT/HCPCS: 72114; 72202; 99212

== ENCOUNTER → 2022-08-07 11:31 | Outpatient (BNVA) | payer OTHER, SELFPAY | PROVIDERS: PCP Internal Medicine; Visit Provider Nurse Practitioner Family | DX: M51.36 Other intervertebral disc degeneration, lumbar region (principal); M25.551 Pain in right hip; M25.552 Pain in left hip; M47.816 Spondylosis without myelopathy or radiculopathy, lumbar region; M16.9 Osteoarthritis of hip, unspecified; M53.3 Sacrococcygeal disorders, not elsewhere classified | CPT/HCPCS: Q3014 ==

== ENCOUNTER 2022-08-13 10:22 | Outpatient (REF) | payer OTHER, SELFPAY ==
--- NOTE | ~2022-08-13 | XR_ITS ---
EXAMINATION: XR CHEST CLINICAL INFORMATION: Chest pain COMPARISON: 09/09/2018 TECHNIQUE: 2 views of the chest were obtained. FINDINGS: No significant abnormality is noted involving the heart, lungs, mediastinum, bony thorax or soft tissues. XR/XR chest 2V IMPRESSION: Unremarkable examination.
[2022-08-13 10:34] LABS: MANUAL DIFF FLAG NO
[2022-08-13 10:49] LABS: Basophils Percent Auto 0.2 % (0-2); Eosinophils Absolute Auto 0.1 X10*3/uL (0.0-0.4); Eosinophils Percent Auto 1.9 % (0-4); Hematocrit 38.5 % (42.0-52.0); Hemoglobin 13.3 g/dl (14.0-18.0); Imm Gran Abs Auto 0.01 X10*3/uL (0.00-0.03); Imm Gran Pct Auto 0.2 % (0.0-0.4); Lymphocytes Absolute Auto 1.5 X10*3/uL (1.2-4.9); Lymphocytes Percent Auto 32.4 % (20-40); Mean Corpuscular HGB Conc 34.5 g/dl (31.0-36.0); Mean Corpuscular Hemoglobin 32.2 pg (27.0-33.0); Mean Corpuscular Volume 93.2 fL (80.0-98.0); Monocytes Absolute Auto 0.6 X10*3/uL (0.1-1.2); Monocytes Percent Auto 11.8 % (2-11); Neutrophils Absolute Auto 2.6 x10*3/uL (2.0-8.3); Neutrophils Percent Auto 53.5 % (45-73); Platelet Count 157 X10*3/uL (160-400); Red Blood Count 4.13 X10*6/uL (4.60-5.80); Red Cell Distribution Width 12.2 % (11.0-16.0); White Blood Count 4.8 X10*3/uL (4.8-10.8)
[2022-08-13 12:01] LABS: Iron 101 mcg/dL (45-160); Percent Iron Saturation 33 % (15-50); Total Iron Binding Capacity 302 mcg/dL (228-428); Unsaturated Iron Binding 201 ug/dL
== END 2022-08-13 10:23 | disposition home or self-care (01) ==
LOC: HO.LAB 10:22
PROVIDERS: PCP Internal Medicine; Visit Provider Internal Medicine
DX: Z12.5 Encounter for screening for malignant neoplasm of prostate (principal); R07.9 Chest pain, unspecified; D64.9 Anemia, unspecified
CPT/HCPCS: 36415; 71046; 83540; 84153; 85025

== ENCOUNTER 2022-09-17 09:32 | Outpatient (REF) | payer OTHER, SELFPAY ==
--- NOTE | ~2022-09-17 | US_ITS ---
EXAMINATION: US ABDOMEN COMPLETE CLINICAL INFORMATION: Elevation of levels of liver transaminase levels. COMPARISON: X-ray abdomen 05/08/2022. Ultrasound abdomen complete 10/06/2020. Renal ultrasound 09/15/2018. TECHNIQUE: Real-time imaging of the abdominal viscera. FINDINGS: PANCREAS: Normal. ABDOMINAL AORTA: The proximal, mid, and distal segments are normal in caliber. INFERIOR VENA CAVA: Visualized portions are normal. LIVER: The liver is normal in size. The liver contour is normal. There is increased liver echogenicity. No focal hepatic lesion. There is no intrahepatic biliary duct dilatation seen. GALLBLADDER: Normal. The gallbladder is physiologically distended without evidence of stones, sludge, polyps, wall thickening or pericholecystic fluid. COMMON BILE DUCT: Normal in caliber measuring 0.3 cm in diameter. RIGHT KIDNEY: Small echogenic foci seen in the cortex. No hydronephrosis or focal parenchymal lesions. The kidney measures 10.6 cm in maximum dimension. LEFT KIDNEY: Normal. No hydronephrosis. No renal calculi or focal parenchymal lesions. The kidney measures 11.4 cm in maximum dimension. SPLEEN: Normal. The spleen measures 10.0 cm in maximum dimension. FREE FLUID: None. US/US abdomen complete IMPRESSION: 1. Diffuse echogenic liver without focal lesion. 2. Small echogenic foci in the right kidney. 3. The rest of the abdominal ultrasound is unremarkable.
== END 2022-09-17 09:33 | disposition home or self-care (01) ==
LOC: HO.US 09:32
PROVIDERS: Visit Provider Internal Medicine
DX: R74.01 Elevation of levels of liver transaminase levels (principal)
CPT/HCPCS: 76700

== ENCOUNTER → 2022-10-04 13:18 | Outpatient (BNV) | payer OTHER, SELFPAY | PROVIDERS: PCP Student in an Organized Health Care Education/Training Program; Visit Provider Internal Medicine Medical Oncology | DX: D64.9 Anemia, unspecified (principal) | CPT/HCPCS: 99204; 99213 ==

== ENCOUNTER 2022-10-24 14:25 | Outpatient (REF) | payer OTHER, SELFPAY ==
[2022-10-24 16:08] LABS: Prostate Specific Antigen 0.76 ng/mL (<0.05-4.0)
[2022-10-24 18:23] LABS: Appearance Urine Clear; Color Urine Yellow; Glucose Urine UA Negative (Negative); Leukocyte Esterase Urine Negative (Negative); Nitrite Urine Negative (Negative); PH 5.5 (5.0-9.0); Specific Gravity - Urine 1.015 (1.005-1.025); Urine Blood Negative (Negative); Urine Ketones Negative (Negative); Urine Protein Negative (Neg-Trace)
[2022-10-24 18:25] LABS: Bacteria Urine None Seen (None Seen); Hyaline Casts Urine 0-2 /LPF (0-2); RBC Urine 0-2 /HPF (0-2); Squamous Epithelial Cell Urine 0-2 /HPF (0-2); WBC Urine 0-5 /HPF (0-5)
== END 2022-10-24 14:26 | disposition home or self-care (01) ==
LOC: HO.LAB 14:25
PROVIDERS: PCP Internal Medicine; Visit Provider Urology
DX: Z12.5 Encounter for screening for malignant neoplasm of prostate (principal); R33.9 Retention of urine, unspecified
CPT/HCPCS: 36415; 81001; 84153; 87086

== ENCOUNTER → 2022-11-21 12:58 | Outpatient (BNVA) | payer OTHER, SELFPAY | PROVIDERS: PCP Internal Medicine; Visit Provider Urology | DX: N32.0 Bladder-neck obstruction (principal); R33.9 Retention of urine, unspecified | CPT/HCPCS: 52000; 99212 ==

== ENCOUNTER 2023-01-10 09:20 | Day surgery (SDC) | payer OTHER, SELFPAY ==
[2023-01-08 15:50] VITALS: BMI 28.9
--- NOTE | 2023-01-09 14:09 | HO.ANESPROP2 ---
Documented by User: Isabel Vallecillo NP 01/09/23 14:09 HPI - Anesthesia Eval Consult details Narrative: 62yo M for Upper Endoscopy PMFSH Active Problems Active Problems: All Active Problems (Updated 10/04/22 @ 14:42 by Ana Paula Link MD) Normochromic normocytic anemia (Acute) Anemia (Acute) Transaminitis (Acute) Pain in both feet (Acute) Skin lesion (Acute) Physical exam (Acute) Lumbar degenerative disc disease (Acute) Sacroiliac joint pain (Acute) Bilateral hip pain (Acute) Lumbar spondylosis (Acute) Muscle spasm (Acute) OA (osteoarthritis) of hip (Acute) Bladder outlet obstruction (Acute) Hip pain (Acute) Overweight (BMI 25.0-29.9) (Acute) Anxiety (Acute) Chronic GERD (Acute) Mild recurrent major depression (Acute) Urinary retention (Acute) Varicose veins of left lower extremity with inflammation (Acute) Abdominal bloating (Acute) Pedunculated colonic polyp (Acute) Epigastric burning sensation (Acute) Tubulovillous adenoma of large intestine (Acute) Oral kamron (Acute) Leg pain, bilateral (Acute) Chronic idiopathic constipation (Acute) Past Medical History Medical History Anxiety Blurred vision, bilateral Depression Fatty liver HTN (hypertension) Hx of simple renal cyst PVC (premature ventricular contraction) Family History Family History Father No problems noted. Mother History of cancer Respiratory failure Pulmonary fibrosis Family history of problems with anesthesia: No Surgical History Surgical History History of colonoscopy Hx of endoscopy History of Problems with Anesthesia: No Social History Social History Household Members: None Housing: Apartment Are you a primary manager medicare marketing to a significant other at home: No Do you presently have visiting nurse or other home services: No Alcohol intake: current Alcohol intake frequency: holidays/special occasions only Alcohol type: beer Patient Tobacco Use Status: Never used Tobacco e-Cigarette/Vaping Use: Never Used Second Hand Smoke Exposure: No Advance Directives: No Advance Directives Information Provided: Yes service: No Current occupational status: disabled Cognitive needs: No Hearing needs: No Vision needs: No Meds Allergies Allergy/AdvReac Type Severity Reaction Status Date / Time No Known Allergies Allergy Verified 01/04/23 13:07 [No Known Allergies*] Home Medications Medication Instructions Recorded Confirmed Last Taken Type fluticasone propionate 50 1 spray intranasal DAILY 06/14/20 01/04/23 Unknown History mcg/actuation nasal spray,suspension levocetirizine 5 mg tablet 5 mg PO DAILY 06/14/20 01/04/23 Unknown History sildenafil 100 mg tablet (Viagra) 0.5 tab PO DAILY PRN Sexual 12/22/21 01/04/23 Unknown History Activity Exam Exam Date and Time: January 09, 2023 1409 Height,Weight and Vital Signs: Height 5 ft 11 in Weight 93.894 kg Narrative Narrative: EKG 03/2022 Vent. Rate : 068 BPM ? ? Atrial Rate : 068 BPM ?? P-R Int : 168 ms? QRS Dur : 090 ms ? ? QT Int : 404 ms ? ? ? P-R-T Axes : 065 009 027 degrees ?? QTc Int : 429 ms ? Normal sinus rhythm Normal ECG No previous ECGs available Assessment and Plan Assessment Anesthesia Assessment: Chart Reviewed Final Anesthetic Review Family History of Problems with Anesthesia: No History of Problems with Anesthesia: No Documented by User: Tashia Martinez MD 01/10/23 09:56 [facility] Past Medical History Medical History Anxiety Blurred vision, bilateral Depression Fatty liver HTN (hypertension) Hx of simple renal cyst PVC (premature ventricular contraction) Family History Family History Father No problems noted. Mother History of cancer Respiratory failure Pulmonary fibrosis Surgical History Surgical History History of colonoscopy Hx of endoscopy Social History Social History Household Members: None Housing: Apartment Are you a primary manager medicare marketing to a significant other at home: No Do you presently have visiting nurse or other home services: No Alcohol intake: current Alcohol intake frequency: holidays/special occasions only Alcohol type: beer Patient Tobacco Use Status: Never used Tobacco e-Cigarette/Vaping Use: Never Used Second Hand Smoke Exposure: No Advance Directives: No Advance Directives Information Provided: Yes service: No Current occupational status: disabled Cognitive needs: No Hearing needs: No Vision needs: No Meds Allergies Allergy/AdvReac Type Severity Reaction Status Date / Time No Known Allergies Allergy Verified 01/04/23 13:07 [No Known Allergies*] Home Medications Medication Instructions Recorded Confirmed Last Taken Type fluticasone propionate 50 1 spray intranasal DAILY 06/14/20 01/04/23 Unknown History mcg/actuation nasal spray,suspension levocetirizine 5 mg tablet 5 mg PO DAILY 06/14/20 01/04/23 Unknown History sildenafil 100 mg tablet (Viagra) 0.5 tab PO DAILY PRN Sexual 12/22/21 01/04/23 Unknown History Activity Exam Airway Mallampati Class: II TM Dist: >3cm Neck ROM: Full Loose/Missing/Broken Teeth: No Heart: rr Lungs: cta Assessment and Plan Assessment Anesthesia Assessment: Anesthesia Plan Discussed Final Anesthetic Review NPO: Yes ASA Class: II Final Preanesthetic Review: No Changes in Pt Med Stat, Meds/Allgs Chart Reviewed, Consent Obtained/Reviewed and Anes Risks/Benef Reviewed Patient Risk: Low Procedure Risk: Low Anesthetic Plan Anesthetic Plan: MAC: Disposition: Standard PACU
[2023-01-10 09:40] VITALS: BMI 27.9
[2023-01-10 09:53] VITALS: BP 149/82; PULSE 66; RESP 18; TEMP 36.4; O2SAT 100; BMI 27.9
--- NOTE | 2023-01-10 09:57 | P.HPSUR_ITS ---
Pre-Procedural Eval Section A Date of Service: 01/10/23 Section B Chief Complaint: GERD Details of Present Illness: hx of bloating and GERd, EGD for further assessment Relevant Family History (Specify if Yes): No Relevant Social History: None Present Medications: see Short Stay Collaborative assessment Medical History: Significant History (Anxiety Blurred vision, bilateral Depre ssion Fatty liver HTN (hypertension) Hx of simple renal cyst PVC (premature ventricular contraction)) History of Previous Operations: Relevant previous surgery/procedure and date(s) (colonoscopy) Allergies: Allergies Allergy/AdvReac Type Severity Reaction Status Date / Time No Known Allergies Allergy Verified 01/04/23 13:07 [No Known Allergies*] Review of Systems Sugical H&P ROS: Negative: Constitution, Cardiovascular, Respiratory, Neurological, Psychiatric, Hem-Onc, Allergic/Immunologic, Gastrointestinal, Genitourinary, Musculoskeletal, Integumentary, Endocrine and Eyes/Ears/Nose/Throat Exam Surgical H&P Exam: Normal: HEENT, Normal: Heart, Normal: Lungs, Normal: Extremities, Normal: Abdomen, Normal: Skin and Normal: Neurological Plan Diagnosis/Plan: Unchanged I have reviewed the history and physical and performed a pertinent physical examination on my patient. No changes have occurred unless specified. EGD. Time Spent With Patient Time: Total time managing care of this patient today ____ minutes.
--- NOTE | 2023-01-10 09:59 | W.PM.OPN ---
Operative Note Operative Note Date of Service: 01/10/23 Narrative: Procedure Description: EGD Indication: GERD, bloating Anesthesia: MAC FLEXIBLE TRANSORAL UPPER GASTROINTESTINAL ENDOSCOPY UPPER ENDOSCOPY Consent: Indications for the procedure and potential complications of bleeding, perforation, reaction to medications and missed diagnosis were discussed with the patient and informed consent was obtained. Instrument: Olympus GIF H 190 J mid size upper endoscope Monitoring: Vital signs and clinical assessment, continuous EKG monitoring, Pulse oximetry, Carbon Dioxide monitoring and blood pressure monitoring were done throughout the procedure. Procedure: The patient was placed in the left lateral decubitis position and pre-procedure medications were administered and a bite block was placed. The endoscope was inserted into the mouth and advanced under direct vision to the third part of duodenum. A careful inspection was made as the upper endoscope was withdrawn including a retroflexed examination of the proximal stomach; Findings and interventions are described below. Findings: Larynx:normal Esophagus: GE junction at 42 cm, diaphragm hiatus at 42 cm, mild bogginess and erythema at GEJ, bx taken also from distal and proximal esophagus, 7-9 mm esophgeal inlet patch noted. Stomach: Patchy gastric erythema. Biopsies were obtained. Grade 2 flap valve on retroflexed examination of the cardia. Duodenum: Normal bulb and descending duodenum, bx taken Intervention: Biopsies as noted above Impression/Findings: esophageal inlet patch gastritis esophagitis PLAN: reflux precautions can increase dose of omeprazole if needed if h pylori pos then treat if ongoing sx then GES, consider SIBO
[2023-01-10 10:23] VITALS: BP 100/58; PULSE 67; RESP 16; TEMP 36.5; O2SAT 98
[2023-01-10 10:38] VITALS: BP 136/80; PULSE 68; RESP 16; TEMP 36.5; O2SAT 99
== END 2023-01-10 12:22 | disposition home or self-care (01) ==
PROVIDERS: PCP Internal Medicine; Visit Provider Internal Medicine Gastroenterology
PROC: 0DJ08ZZ Inspection of Upper Intestinal Tract, Via Natural or Artificial Opening Endoscopic (ICD-10-PCS; CPT 43235; principal; 2023-01-10 11:50)
DX: R10.13 Epigastric pain (principal); R10.32 Left lower quadrant pain; K29.50 Unspecified chronic gastritis without bleeding; K21.9 Gastro-esophageal reflux disease without esophagitis; K44.9 Diaphragmatic hernia without obstruction or gangrene; Q39.8 Other congenital malformations of esophagus; I10 Essential (primary) hypertension; K76.0 Fatty (change of) liver, not elsewhere classified; Z79.899 Other long term (current) drug therapy
CPT/HCPCS: 43239; 88305; 88342

== ENCOUNTER → 2023-02-08 13:43 | Outpatient (BNVA) | payer OTHER, SELFPAY | PROVIDERS: PCP Internal Medicine; Visit Provider Nurse Practitioner | DX: K21.9 Gastro-esophageal reflux disease without esophagitis (principal); K59.04 Chronic idiopathic constipation; R10.32 Left lower quadrant pain | CPT/HCPCS: 99212 ==

== ENCOUNTER 2023-03-12 13:46 | Outpatient (REF) | payer OTHER, SELFPAY ==
--- NOTE | ~2023-03-12 | US_ITS ---
EXAMINATION: US SCROTUM CLINICAL INFORMATION: Left groin pain. COMPARISON: None available. TECHNIQUE: A sonogram of the scrotum was performed assessing hernandez-scale appearance and color Doppler flow. Spectral Doppler analysis of the arterial and venous flow were performed in the testes bilaterally. FINDINGS: RIGHT: Right testicle measures 4.6 x 2.4 x 3.0 cm, volume 17.2 mL. Scattered punctate calcifications are seen. No worrisome masses. Spectral Doppler analysis of the arterial and venous flow is normal in the right testis. Right epididymal head is normal in size. No right hydrocele or varicocele is seen. Right epididymal Doppler flow is normal. LEFT: Left testicle measures 5.1 x 2.6 x 3.3 cm, volume 22.9 mL. Scattered punctate calcifications are present. A small 1.7 mm testicular benign-appearing cyst is present. Spectral Doppler analysis of the arterial and venous flow is normal in the left testis. Left epididymal head is normal in size. A 7 mm cyst is present in the head of the epididymis. No left hydrocele is seen. A small left-sided varicocele is present with veins up to 4 mm in size increasing with Valsalva. Left epididymal Doppler flow is normal. ADDITIONAL FINDINGS: In the area of concern in the left groin, multiple lymph nodes are present, the largest measuring 1.7 x 0.9 x 0.9 cm. US/US scrotum IMPRESSION: Left-sided varicocele. Bilateral testicular microlithiasis. Left epididymal head cyst. Left-sided benign-appearing inguinal lymph nodes. Tiny benign-appearing left testicular cyst. A mass worrisome for malignancy is not seen. Testicular microlithiasis is present without intratesticular mass or other worrisome findings. In the absence of any other risk factors for testicular cancer (e.g., personal history of testicular cancer, a father or brother with testicular cancer, history of cryptorchidism or maldescent, testicular atrophy, or other risk factors), no further imaging or biochemical follow-up is necessary; all that is recommended is routine monthly testicular self-examination. However, if the patient has risk factors for testicular cancer, referral to a urologist for evaluation and determination of an optimal follow-up strategy is recommended.
== END 2023-03-12 13:47 | disposition home or self-care (01) ==
LOC: HO.US 13:46
PROVIDERS: PCP Internal Medicine; Visit Provider Nurse Practitioner
DX: R10.32 Left lower quadrant pain (principal)
CPT/HCPCS: 76870

== ENCOUNTER 2023-05-29 14:22 | Outpatient (AMB) | payer OTHER, SELFPAY ==
--- NOTE | 2023-05-29 14:26 | MHC.OFFVIS ---
Intake Intake Visit Reasons: 6m follow up Intake Note: Patient is Present for Follow Up Urology Medication: Finasteride, Sildenafil, Tamsulosin Antibiotic Allergies: None Blood Thinners: None Pharmacy: [facility] Pharmacy Allergies No Known Allergies [No Known Allergies*] Allergy (Verified 05/29/23 14:28) Medication List - Last Reconciled 05/29/23 by James Singh MD celecoxib (Celebrex) 200 mg PO BID PRN diclofenac sodium 1% 2 grams topical QID PRN 30 days docusate sodium (Colace) 100 mg PO .DAILY WITH FOOD 30 days finasteride 5 mg PO DAILY 90 days fluticasone propionate 50 mcg/actuation 1 spray intranasal DAILY levocetirizine 5 mg PO DAILY lidocaine 5% 1 patch topical DAILY 30 days omeprazole 40 mg PO .daily polyethylene glycol 3350 (Miralax) 17 grams PO BID sennosides (senna) 25.8 mg (3 x 8.6 mg) PO BEDTIME sertraline 50 mg PO DAILY 90 days sildenafil (Viagra) 0.5 tabs PO DAILY PRN tamsulosin 0.4 mg PO BEDTIME 90 days terbinafine HCl 1% 1 appl topical BID 30 days tizanidine 4 mg PO BID PRN 30 days triamcinolone acetonide 0.5% 1 appl topical BID 30 days HPI HPI Comments History of Present Illness Details Davon is a pleasant male. He is a patient of Dr. Flores. He is seen for the following urologic conditions - lower urinary tract symptoms Slowing of urination Would like to continue with finasteride Had recent ultrasound showing left testicular microlithiasis and small varicocele Reassurance provided Lower urinary tract symptoms Episode of urinary retention 03/23 Initiated alpha-jose luis Has noted retrograde ejaculation Addition finasteride Labs - 10/25 P 0.8, T 612 Plan follow-up 6 months [facility] Medical History PVC (premature ventricular contraction) Hx of simple renal cyst Fatty liver HTN (hypertension) Blurred vision, bilateral Depression Anxiety Surgical History Hx of endoscopy History of colonoscopy Family History Father No problems noted. Mother History of cancer Respiratory failure Pulmonary fibrosis Social History Household Members: None Housing: Apartment Are you a primary career placement specialist to a significant other at home: No Do you presently have visiting nurse or other home services: No Alcohol intake: current Alcohol intake frequency: holidays/special occasions only Alcohol type: beer Patient Tobacco Use Status: Never used Tobacco e-Cigarette/Vaping Use: Never Used Second Hand Smoke Exposure: No service: No Current occupational status: disabled Cognitive needs: No Hearing needs: No Vision needs: No Review of Systems Const Denies chills and Denies fever(s) Card Reports no additional complaints and Denies syncope Resp Denies cough GI Denies abdominal pain and Denies heartburn Reports as per HPI and Denies change in libido Neuro Denies syncope Psych Denies change in libido Endo Denies change in libido Physical Exam Const General: cooperative, healthy appearing, comfortable and no acute distress Orientation/consciousness: patient oriented x3 HEENT Face and sinus: Yes normal facial exam Mouth: moist mucous membranes Neck Neck: Yes normal visual inspection, Yes full ROM and Yes trachea midline Chest Chest palpation & inspection: normal inspection of the chest Resp Effort & Inspection: normal respiratory effort, able to speak in complete sentences and no respiratory distress GI Inspection: Yes normal to inspection Back/Spine/Pelvis Cervical Spine: normal cervical lordosis Thoracic/Lumbar Spine: thoracic and lumbar spine normal to inspection Skin General skin exam: no rashes or lesions noted Neuro General: patient oriented x3, gait normal, tone normal and moves all extremities Extrem General: Yes normal to inspection and Yes capillary refill normal Assessment & Plan Assessment & Plan (1) Bladder outlet obstruction: Code(s): N32.0 - Bladder-neck obstruction Plan Six month follow-up Medications: Refilled finasteride 5 mg PO DAILY 90 tabs 1RF 90 days N13.8 - Other obstructive and reflux uropathy, N40.1 - Benign prostatic hyperplasia with lower urinary tract symptoms, R33.9 - Retention of urine, unspecified Patient Instructions: Imaging studies, laboratory and physical exam results were discussed and reviewed in detail. No major barriers to patient understanding were identified. An opportunity to ask questions regarding the treatment plan was provided. All questions were answered. The patient expressed understanding and agreement with the above treatment plan. The patient is aware they should contact our office by phone for worsening of their current condition or the appearance of new urologic symptoms. Compliance is encouraged with any medications and followup testing that is ordered. It is a privilege to participate in the urologic care of your patient. If you have any questions or concerns regarding treatment for the above conditions, or other urologic issues, please do not hesitate to contact me. The office telephone contact is [phone]. This note is constructed using voice recognition software. While every effort has been made to ensure accuracy sales and marketing associate errors may have been included. Yours sincerely, Dr James Singh MD, [facility] - Urology Providers of Expert, Compassionate Care for the Genitourinary System Coding Level of Care Code Est Pt Level 3 (91706) Diagnoses Bladder outlet obstruction N32.0
== END 2023-05-29 15:07 | disposition home or self-care (01) ==
PROVIDERS: PCP Physician Assistant; Visit Provider Urology
DX: N32.0 Bladder-neck obstruction (principal)
CPT/HCPCS: 99213

== ENCOUNTER → 2023-05-29 14:22 | Outpatient (BNVA) | payer OTHER, SELFPAY | PROVIDERS: Visit Provider Urology | DX: N40.1 Benign prostatic hyperplasia with lower urinary tract symptoms (principal); N13.8 Other obstructive and reflux uropathy; N53.14 Retrograde ejaculation; N32.0 Bladder-neck obstruction; R33.9 Retention of urine, unspecified | CPT/HCPCS: 99212 ==

== ENCOUNTER 2023-06-04 13:41 | Outpatient (AMB) | payer OTHER, SELFPAY ==
[2023-06-04 13:51] VITALS: BP 120/80; PULSE 55; RESP 17; O2SAT 99; BMI 28.7
--- NOTE | 2023-06-04 13:51 | MHC.PC.OV ---
Vital Signs 06/04/23 13:51 Height 5 ft 11 in Weight 206 lb BMI 28.7 BP 120/80 Blood Pressure Location Lt brachial Position Sitting Respiration 17 Pulse 55 Pulse Source Pulse Oximeter Pulse Oximetry (%) 99 Oxygen Delivery Method Room Air Intake Visit Reasons: Transfer Of Care From Dr. Palmer/ Marty Retail Analyst Required: No Accompanied by: Self / Same As Patient Allergies No Known Allergies [No Known Allergies*] Allergy (Verified 06/04/23 14:09) Medication List - Last Reconciled 06/04/23 by Roger Norris PA-C bupropion HCl 150 mg PO QAM chlorhexidine gluconate 0.12% (Periogard) 15 mL buccal DAILY finasteride 5 mg PO DAILY 90 days fluticasone propionate 50 mcg/actuation 1 spray intranasal DAILY sertraline 50 mg PO DAILY 90 days tamsulosin 0.4 mg PO BEDTIME 90 days triamcinolone acetonide 0.1% 1 appl topical BID-TID triamcinolone acetonide 0.5% 1 appl topical BID 30 days Tobacco use date assessed: 06/04/23 Fall risk assessment: No Falls in past year Last assessed Fall Risk: 06/04/23 Dental Screening Dental Screen Date: 06/04/23 Did you have a dental visit in the last 12 months?: Yes Did you have a dental problem in the last 6 months where you did not have access to dental care?: No Was dental information given to patient?: Patient has dentist HPI Transfer Of Care From Dr. Palmer/ Marty HPI Details Patient is a 63-year-old male here today for transfer care visit. Patient has a past medical history significant for hip osteoarthritis, bladder outlet obstruction, major depressive disorder./ .. Major depressive disorder: Continues on sertraline and Wellbutrin with good effect on his mood. .. Bilateral osteoarthritis of hips: Uses no be met on a p.r.n. basis for hip pain. He reports continues to have left groin pain which may be related to his osteoarthritis in his left hip. He did get ultrasound of scrotum which did show left varicocele and some microcalcifications and was reassured by Urology. Also does bladder out that obstruction due to BPH and continues on finasteride and tamsulosin. .. Left foot arch pain: Has been seen by Podiatry and received cortisone injections in his left arch tendon. He reports initially his pain was much improved though on his 3rd injection he ended up having some kind of her reaction. Reports he continues to have pain in his left arch feels that there is some kind of a subcutaneous mass at the area of the intra site. . COUNT INCLUDES THE [facility] Medical History PVC (premature ventricular contraction) Hx of simple renal cyst Fatty liver HTN (hypertension) Blurred vision, bilateral Depression Anxiety Surgical History Hx of endoscopy History of colonoscopy Family History Father No problems noted. Mother History of cancer Respiratory failure Pulmonary fibrosis Social History Household Members: None Housing: Apartment Are you a primary insurance healthcare representative to a significant other at home: No Do you presently have visiting nurse or other home services: No Alcohol intake: current Alcohol intake frequency: holidays/special occasions only Alcohol type: beer Patient Tobacco Use Status: Never used Tobacco e-Cigarette/Vaping Use: Never Used Second Hand Smoke Exposure: No service: No Current occupational status: disabled Cognitive needs: No Hearing needs: No Vision needs: No Questionnaire PHQ-9 Over the last 2 weeks, how often have you been bothered by any of the following problems? 1. Little interest or pleasure in doing things: several days 2. Feeling down, depressed, or hopeless: several days 3. Trouble falling or staying asleep, or sleeping too much: nearly every day 4. Feeling tired or having little energy: more than half the days 5. Poor appetite or overeating: not at all 6. Feeling bad about yourself - or that you are a failure or have let yourself or your family down: not at all 7. Trouble concentrating on things, such as reading the newspaper or watching television: not at all 8. Moving or speaking so slowly that other people could have noticed. Or the opposite - being so fidgety or restless that you have been moving around a lot more than usual: not at all 9. Thoughts that you would be better off or of hurting yourself in some way: not at all Total score: 7 Depression Screening Interpretation: Positive Depression Screening Follow-up: Existing condition Depression Screening Done: Yes 16057 - PHQ-9 Billing: Yes Source: Developed by Drs. Jose R Grant, Renay Mukherjee, Juan Newton and colleagues, with an educational greta from [employer]. Thrive Questionnaire Date Thrive assessed: 06/04/23 I am a: Patient What is your living situation today?: I have a steady place to live Within the past 12 months, did the food you bought not last and you didn't have the money to get more?: Never true Within the past 12 months, did you worry whether your food would run out before you got money to buy more?: Never true Do you have trouble paying for medicines?: No Do you have trouble getting transportation to medical appointments?: No Do you have trouble paying your heating and electricity bill?: No Do you have trouble taking care of your child, family member or friend?: No Do you have trouble with day-to-day activities such as bathing, preparing meals, shopping, managing finances, etc.?: No Are you currently unemployed and looking for a job?: No Are you interested in more education?: No Please select the resources that you would like help with: None Currently or been in a relationship where the following occur: no concerns reported AUDIT C Alcohol Use Questionnaire (AUDIT-C) 1. How often do you have a drink containing alcohol?: Monthly or less 2. How many drinks containing alcohol do you have on a typical day when you are drinking?: 1 or 2 3. How often do you have six or more drinks on one occasion?: Never Total Score: 1 Score Reviewed/Action Taken: Yes DEANNA-7 AMB Questionnaire DEANNA-7 Date DEANNA - 7 assessed: 06/04/23 Feeling nervous, anxious, or on edge: 0 = Not at all Not being able to stop or control worryin = Not at all Worrying too much about different things: 0 = Not at all Trouble relaxin = Not at all Being so restless that it is hard to sit still: 0 = Not at all Becoming easily annoyed or irritable: 0 = Not at all Feeling afraid as if something awful might happen: 0 = Not at all Total DEANNA-7 score (0-4 normal; 5-9 mild; 10-14 moderate; 15-21 severe): 0 Source: Developed by Drs. Jose R Grant, Renay Mukherjee, Juan Newton and colleagues, with an educational greta from [employer]. DEANNA-7 Assessment Billing DEANNA-7 Assessment Tool: DEANNA-7 Assessment 14874 Review of Systems Const Denies headache(s) Eyes Denies loss of vision ENT Denies vertigo, Denies dizziness, Denies headache(s) and Denies sore throat Card Denies chest pain, Denies leg edema and Denies lightheadedness Resp Denies cough, Denies hemoptysis and Denies wheezing GI Denies abdominal pain, Denies melena, Denies constipation, Denies diarrhea and Denies vomiting Denies dysuria, Denies urinary frequency and Denies urinary urgency Musc Denies arthralgias, Denies joint swelling, Denies numbness and Denies tingling Neuro Denies Abnormal speech present, Denies behavioral changes, Denies vertigo, Denies dizziness, Denies headache(s), Denies loss of vision, Denies memory loss, Denies numbness and Denies tingling Psych Denies anxiety, Denies behavioral changes, Denies depression, Denies memory loss and Denies panic attacks Cody/Lymph Denies easy bleeding and Denies easy bruising Aller/Immun Denies wheezing Physical exam (Primary Care) Vital Signs: Last Vital Signs Pulse 55 06/04/23 13:51 Resp 17 06/04/23 13:51 BP 120/80 06/04/23 13:51 Pulse Ox 99 06/04/23 13:51 Oxygen Delivery Method Room Air 06/04/23 13:51 BMI result Body Mass Index 28.7 Tobacco/Smoking Status: Tobacco use Status Tobacco use date assessed 03/29/22 06/04/23 13:51 Patient Tobacco Use Status Never used Tobacco 06/04/23 13:51 e-Cigarette/Vaping Use Never Used 06/04/23 13:51 Depression Screening Interpretation: Positive Depression Screening Follow-up: Existing condition Thrive Assessment: Date of Thrive Assessment Date Thrive assessed 03/29/22 06/04/23 13:51 Currently or been in a relationship where the following occur: no concerns reported Const General: healthy appearing, no acute distress, alert and awake Nutritional Appearance: well nourished Orientation/consciousness: oriented to person, oriented to place and oriented to time HENMT Ears: TM's normal bilaterally General nose exam: Normal nasal mucous membranes and turbinates present Eyes Conjunctivae: conjunctivae normal Sclerae: sclerae normal Pupils: Equal, round and reactive pupils present Neck Neck: Yes no lymphadenopathy and Yes no JVD Thyroid: Thyroid normal Carotids: no bruits Resp Effort & Inspection: normal respiratory effort and not tachypneic Auscultation: no crackles, no rales, no rhonchi and no wheezes Cardio Rate: regular rate Rhythm: regular rhythm Heart sounds: no murmurs and normal S1 and S2 GI Palpation (GI): Soft to palpation, nontender, no hepatomegaly and no splenomegaly Auscultation: normal bowel sounds Skin General skin exam: no rashes or lesions noted and dry skin Neuro General: oriented to person, oriented to place and oriented to time Cranial nerves: Yes Equal, round and reactive pupils present Speech: No Abnormal speech present Gait exam (Neuro): Normal gait present Motor exam (neuro): no tremor noted Extrem Right upper extremity: full ROM Left upper extremity: full ROM Right lower extremity: full ROM; no edema Left lower extremity: full ROM; no edema Psych Mental Status: mental status grossly normal Speech and movement: Normal speech and movement present Affect: normal affect Attitude: cooperative Thought process: Normal thought process present Assessment and Plan Assessment & Plan (1) Bladder outlet obstruction: Code(s): N32.0 - Bladder-neck obstruction (2) OA (osteoarthritis) of hip: Code(s): M16.9 - Osteoarthritis of hip, unspecified Qualifiers: Osteoarthritis type: primary Laterality: bilateral Qualified Code(s): M16.0 - Bilateral primary osteoarthritis of hip Plan: Has bilateral moderate arthritis his hips. He has been having left groin pain which may be related to his hip arthritis. He is willing to do physical therapy for his hips. (3) Allergic rhinitis: Code(s): J30.9 - Allergic rhinitis, unspecified Qualifiers: Allergic rhinitis trigger: pollen Allergic rhinitis seasonality: seasonal Qualified Code(s): J30.1 - Allergic rhinitis due to pollen Plan: Uses antihistamine and Flonase nasal spray on a p.r.n. basis during changes seasons. (4) Mild recurrent major depression: Code(s): F33.0 - Major depressive disorder, recurrent, mild Plan: Continues on mental health medications and feels his mental health is fairly stable on current doses of sertraline Wellbutrin. (5) Left groin pain: Code(s): R10.32 - Left lower quadrant pain Plan: Left groin pain is likely related to his osteoarthritis in his hip. Would likely benefit from physical therapy. (6) Arch pain of left foot: Code(s): M79.672 - Pain in left foot Plan: As per HPI (7) Screening for diabetes mellitus (DM): Code(s): Z13.1 - Encounter for screening for diabetes mellitus Orders: Orders Comprehensive [place]. Panel Fast Today Z13.1 - Encounter for screening for diabetes mellitus PT Evaluation and Treatment Today M25.551 - Pain in right hip, M25.552 - Pain in left hip XR foot LT 2V Today M79.672 - Pain in left foot Complete Blood Count no Diff Today D64.9 - Anemia, unspecified IRON PROFILE Today D50.9 - Iron deficiency anemia, unspecified, D64.9 - Anemia, unspecified Referrals Podiatry Referral M79.672 - Pain in left foot Medications: New diclofenac sodium 1% (Arthritis Pain (diclofenac)) apply to single elbow, wrist or hand; for hand includes palm/fingers/back of hand 2 grams topical ONCE 30 days 100 grams 3RF M79.671 - Pain in right foot, M79.672 - Pain in left foot bupropion HCl 150 mg PO QAM 90 days 90 tabs 2RF F33.0 - Major depressive disorder, recurrent, mild nabumetone 750 mg PO BID 30 days PRN 60 tabs 1RF pain M16.0 - Bilateral primary osteoarthritis of hip Changed From fluticasone propionate 50 mcg/actuation administer into each nostril 1 spray intranasal DAILY J30.1 - Allergic rhinitis due to pollen To fluticasone propionate 50 mcg/actuation administer into each nostril 1 spray intranasal DAILY 30 days 16 grams 1RF J30.1 - Allergic rhinitis due to pollen Refilled sertraline 50 mg PO DAILY 90 days 90 tabs 1RF F33.0 - Major depressive disorder, recurrent, mild Coding Level of Care Code Est Pt Level 4 (14910) Diagnoses Bladder outlet obstruction N32.0 Primary osteoarthritis of both hips M16.0 Osteoarthritis type: primary Laterality: bilateral Seasonal allergic rhinitis due to pollen J30.1 Allergic rhinitis trigger: pollen Allergic rhinitis seasonality: seasonal Mild recurrent major depression F33.0 Left groin pain R10.32 Arch pain of left foot M79.672 Screening for diabetes mellitus (DM) Z13.1 Additional Codes DEANNA-7 Assessment Billing - DEANNA-7 Assessment Tool: DEANNA-7 Assessment 78031 ([id number])
== END 2023-06-04 14:44 | disposition home or self-care (01) ==
PROVIDERS: PCP Internal Medicine; Visit Provider Physician Assistant
DX: N32.0 Bladder-neck obstruction (principal); M16.0 Bilateral primary osteoarthritis of hip; J30.1 Allergic rhinitis due to pollen; F33.0 Major depressive disorder, recurrent, mild; R10.32 Left lower quadrant pain; M79.672 Pain in left foot; Z13.1 Encounter for screening for diabetes mellitus
CPT/HCPCS: 99214

== ENCOUNTER 2023-06-04 14:53 | Outpatient (REF) | payer OTHER, SELFPAY ==
[2023-06-04 15:29] LABS: Hematocrit 38.6 % (42.0-52.0); Hemoglobin 13.6 g/dl (14.0-18.0); Mean Corpuscular HGB Conc 35.2 g/dl (31.0-36.0); Mean Corpuscular Hemoglobin 32.7 pg (27.0-33.0); Mean Corpuscular Volume 92.8 fL (80.0-98.0); PLT CLUMP 1; Red Blood Count 4.16 X10*6/uL (4.60-5.80); Red Cell Distribution Width 12.6 % (11.0-16.0)
[2023-06-04 15:40] LABS: Alanine Aminotransferase 24 U/L (0-40); Albumin Level 4.6 g/dL (3.5-5.0); Alkaline Phosphatase 56 U/L (39-117); Anion Gap 12 (12-20); Aspartate Amino Transferase 25 U/L (5-37); Bilirubin Total 0.9 mg/dL (0.0-1.0); Blood Urea Nitrogen 14 mg/dL (9-16); Calcium 10.5 mg/dL (8.4-10.2); Carbon Dioxide 26 mmol/L (22-29); Chloride 107 mmol/L (96-108); Estimated Glomerular Filt Rate > 60; Glucose Fasting 95 mg/dL (60-99); Iron 81 mcg/dL (45-160); Percent Iron Saturation 25 % (15-50); Potassium 3.8 mmol/L (3.3-5.1); Sodium 141 mmol/L (135-145); Total Iron Binding Capacity 326 mcg/dL (228-428); Unsaturated Iron Binding 245 ug/dL
[2023-06-04 15:50] LABS: Platelet Count 144 X10*3/uL (160-400); White Blood Count 4.5 X10*3/uL (4.8-10.8)
== END 2023-06-04 14:54 | disposition home or self-care (01) ==
LOC: HO.LAB 14:53
PROVIDERS: PCP Physician Assistant; Visit Provider Physician Assistant
DX: D50.9 Iron deficiency anemia, unspecified (principal); Z13.1 Encounter for screening for diabetes mellitus
CPT/HCPCS: 36415; 80053; 83540; 85027

== ENCOUNTER 2023-06-07 13:26 | Outpatient (REF) | payer OTHER, SELFPAY ==
--- NOTE | ~2023-06-07 | XR_ITS ---
EXAMINATION: XR FOOT, LEFT CLINICAL INFORMATION: Pain. COMPARISON: Portions of the MRI left foot dated 03/09/2021. TECHNIQUE: AP, lateral, and oblique views of the left foot. FINDINGS: Bony alignment and mineralization are normal. No fracture, dislocation or left ankle joint effusion is seen. Boehler's angle is normal. There are moderate posterior and small plantar calcaneal spurs. No focal soft tissue swelling, gas or foreign body is seen. There are atherosclerotic calcifications. XR/XR foot LT 2V IMPRESSION: 1. No fracture, dislocation or left ankle joint effusion is seen. 2. There are moderate posterior and small plantar calcaneal spurs.
== END 2023-06-07 13:27 | disposition home or self-care (01) ==
LOC: HO.XRAY 13:26
PROVIDERS: PCP Physician Assistant; Visit Provider Physician Assistant
DX: M79.672 Pain in left foot (principal)
CPT/HCPCS: 73620

== ENCOUNTER 2023-06-19 13:42 | Outpatient (REF) | payer OTHER, SELFPAY ==
[2023-06-19 14:52] LABS: Appearance Urine Clear; Color Urine Yellow; Glucose Urine UA Negative (Negative); Leukocyte Esterase Urine Negative (Negative); Nitrite Urine Negative (Negative); PH 5.5 (5.0-9.0); Urine Blood Negative (Negative); Urine Ketones Negative (Negative); Urine Protein Negative (Neg-Trace)
== END 2023-06-19 13:43 | disposition home or self-care (01) ==
LOC: HO.LAB 13:42
PROVIDERS: PCP Physician Assistant; Visit Provider Physician Assistant
DX: R39.9 Unspecified symptoms and signs involving the genitourinary system (principal)
CPT/HCPCS: 81003

== ENCOUNTER 2023-06-19 13:58 | Emergency (ER) | payer OTHER, SELFPAY ==
--- NOTE | ~2023-06-19 | XR_ITS ---
EXAMINATION: XR CHEST CLINICAL INFORMATION: Chest pressure COMPARISON: 08/13/2022 TECHNIQUE: 2 views of the chest were obtained. FINDINGS: No significant abnormality is noted involving the heart, lungs, mediastinum, bony thorax or soft tissues. XR/XR chest 2V IMPRESSION: Unremarkable examination.
--- NOTE | 2023-06-19 14:03 | ECG_ITS ---
Test Reason : chest pain Blood Pressure : / mmHG Vent. Rate : 069 BPM Atrial Rate : 069 BPM P-R Int : 166 ms QRS Dur : 074 ms QT Int : 400 ms P-R-T Axes : 045 -01 010 degrees QTc Int : 428 ms Normal sinus rhythm Minimal voltage criteria for LVH, may be normal variant ( R in aVL ) Borderline ECG When compared with ECG of 08-MAR-2022 05:51, No significant change was found Referred By: Dali Martinez Electronically Signed By:BRAD BAIG MD
[2023-06-19 14:29] VITALS: BP 162/81; PULSE 66; RESP 19; TEMP 36.1; O2SAT 98; BMI 28.7
--- NOTE | 2023-06-19 14:29 | ED_ITS ---
HPI - Chest Pain General Chief Complaint: General Medical Stated Complaint: pressure in chest Time Seen by Provider: 06/19/23 18:39 Source: patient Mode of arrival: ambulatory Limitations: no limitations History of Present Illness HPI narrative: 2-3 weeks of intermittent pressure lasting 30 minutes. The pain happens at rest and exertion, he feels the pain when he eats complaint: chest heaviness Related Data Home Medications Medication Instructions Recorded Confirmed chlorhexidine gluconate 0.12 % 15 ml buccal DAILY 06/04/23 06/04/23 mouthwash (Periogard) triamcinolone acetonide 0.1 % 1 appl topical BID-TID 06/04/23 06/04/23 topical cream Previous Rx's Medication Instructions Recorded triamcinolone acetonide 0.5 % 1 appl topical BID 30 days #15 09/11/22 topical cream grams tamsulosin 0.4 mg capsule 0.4 mg PO BEDTIME 90 days #90 caps 01/31/23 finasteride 5 mg tablet 5 mg PO DAILY 90 days #90 tabs 05/29/23 bupropion HCl 150 mg tablet,12 hr 150 mg PO QAM 90 days #90 tabs 06/04/23 sustained-release diclofenac sodium 1 % topical gel 2 g topical ONCE 30 days #100 grams 06/04/23 (Arthritis Pain (diclofenac)) fluticasone propionate 50 1 spray intranasal DAILY 30 days 06/04/23 mcg/actuation nasal #16 grams spray,suspension nabumetone 750 mg tablet 750 mg PO BID PRN pain 30 days #60 06/04/23 tabs sertraline 50 mg tablet 50 mg PO DAILY 90 days #90 tabs 06/04/23 pantoprazole 40 mg tablet,delayed 40 mg PO DAILY #20 tabs 06/19/23 release (Protonix) Allergies Allergy/AdvReac Type Severity Reaction Status Date / Time No Known Allergies Allergy Verified 06/04/23 14:09 [No Known Allergies*] Review of Systems 2 Review of Systems: Yes all other systems are reviewed and are negative Neurologic: Denies Sensory deficit (Neuro) PMFSH Past Medical History Medical History PVC (premature ventricular contraction) Hx of simple renal cyst Fatty liver HTN (hypertension) Blurred vision, bilateral Depression Anxiety Surgical History Hx of endoscopy History of colonoscopy Family History Family History Father No problems noted. Mother History of cancer Respiratory failure Pulmonary fibrosis Social History Social History Household Members: None Housing: Apartment Are you a primary critical care transport nurse to a significant other at home: No Do you presently have visiting nurse or other home services: No Alcohol intake: current Alcohol intake frequency: holidays/special occasions only Alcohol type: beer Patient Tobacco Use Status: Never used Tobacco Smoked in Last 30 Days: No e-Cigarette/Vaping Use: Never Used Second Hand Smoke Exposure: No Use of substances other than those prescribed or required for medical reasons: No Advance Directives: No Advance Directives Information Provided: No service: No Current occupational status: disabled Cognitive needs: No Hearing needs: No Vision needs: No Physical Exam 2 Vital Signs: Vital Signs: Last Vital Signs Temp 97.0 F 06/19/23 14:29 Pulse 66 06/19/23 14:29 Resp 19 06/19/23 14:29 BP 162/81 H 06/19/23 14:29 Pulse Ox 98 06/19/23 14:29 O2 Del Method Room Air 06/19/23 14:29 BMI result Body Mass Index 28.7 Const: General: healthy appearing Nutritional Appearance: average body habitus Orientation/consciousness: oriented to person and patient oriented x3 Limitations: no limitations HEENT: Head: Yes normal to inspection Ears: external ears normal General nose exam: Normal external nose present Mouth: Normal oral and palatal mucosa present and oropharynx normal Throat: Yes posterior oropharynx normal Eyes: General: appearance normal, both eyes and all related structures Neck: Other: supple Neck: Yes normal visual inspection Chest: Chest palpation & inspection: normal inspection of the chest Resp: Auscultation: clear to auscultation bilaterally Cardio: Jugular venous distension: no JVD Rate: regular rate Rhythm: r egular rhythm Heart sounds: S1 normal heart sound present and S2 normal heart sound present GI: Inspection: Yes normal to inspection Palpation (GI): Soft to palpation, nontender and No hepatosplenomegaly present Auscultation: normal bowel sounds : General: Yes no CVA tenderness Back/Spine/Pelvis: Back: no CVA tenderness Skin: General skin exam: no rashes or lesions noted Neuro: General: oriented to person and patient oriented x3 Cranial nerves: Yes CN's II-XII intact bilaterally Motor exam (neuro): 5/5 motor strength present throughout Sensory Exam: No Sensory deficit (Neuro) Extrem: General: Yes normal to inspection Psych: Appearance: grossly normal Course Course Course Narrative: RME - 63 yo male with history of depression/anxiety, GERD, anemia, who presents to the ER for evaluation of intermittent chest pressure for the last 2-3 weeks. Increased fatigue and SOB w/ exertion. PCP told him to come to the ER. Plan: EKG, cardiac workup Reevaluation(s) Reevaluation #1: serial enzymes negative, EKG non ischemic, will treat for GERD and dc home Time: 19:58 Medications Administered Discontinued Medications Generic Name Dose Route Start Last Admin Trade Name Freq PRN Reason Stop Dose Admin Famotidine 20 mg 06/19/23 18:45 06/19/23 19:18 Famotidine 20 Mg Tablet PO 06/19/23 18:46 20 mg ONCE ONE Administration Medical Decision Making Differential Diagnosis Differential Diagnoses: The differential diagnosis associated with the presentation includes (STEMI, cardiac ischemia, pneumonia, GERD were all considered) Admission/Observation Consideration of admission/observation: Escalation of care including admission/observation considered (upon arrival patient was considered for admission) Lab Data MDM Lab Attestation statement: I reviewed the patient's lab results. (troponins were negative) 06/19/23 14:59 06/19/23 14:59 Labs: Lab Results 06/19/23 06/19/23 Range/Units 14:59 19:17 WBC 4.6 L (4.8-10.8) X10*3/uL RBC 4.42 L (4.60-5.80) X10*6/uL Hgb 14.4 (14.0-18.0) g/dl Hct 40.7 L (42.0-52.0) % MCV 92.1 (80.0-98.0) fL MCH 32.6 (27.0-33.0) pg MCHC 35.4 (31.0-36.0) g/dl RDW 12.5 (11.0-16.0) % Plt Count 156 L (160-400) X10*3/uL MPV 9.7 (9.4-12.4) fL Immature Gran % (Auto) 0.2 (0.0-0.4) % Neut % (Auto) 62.0 (45-73) % Lymph % (Auto) 27.5 (20-40) % [place] % (Auto) 9.0 (2-11) % Eos % (Auto) 1.1 (0-4) % Baso % (Auto) 0.2 (0-2) % Lymph # (Auto) 1.3 (1.2-4.9) X10*3/uL [place] # (Auto) 0.4 (0.1-1.2) X10*3/uL Eos # (Auto) 0.1 (0.0-0.4) X10*3/uL Baso # (Auto) 0.0 (0.0-0.2) X10*3/uL Abs Immat Gran (auto) 0.01 (0.00-0.03) X10*3/uL Absolute Neuts (auto) 2.8 (2.0-8.3) x10*3/uL Absolute Nucleated RBC 0.000 (0.0-0.012) X10*3/uL Nucleated RBC % (auto) 0.0 (0.0-0.2) /100WBC Sodium 139 (135-145) mmol/L Potassium 4.1 (3.3-5.1) mmol/L Chloride 105 (96-108) mmol/L Carbon Dioxide 25 (22-29) mmol/L Anion Gap 13 (12-20) BUN 14 (9-16) mg/dL Creatinine 0.98 (0.5-1.4) mg/dL Estim Creat Clear Calc 88.9 Estimated GFR > 60 Random Glucose 106 (60-115) mg/dL Calcium 10.4 H (8.4-10.2) mg/dL Magnesium 1.9 (1.6-2.6) mg/dL Total Bilirubin 1.1 H (0.0-1.0) mg/dL Direct Bilirubin 0.3 (0.0-0.5) mg/dL AST 28 (5-37) U/L ALT 28 (0-40) U/L Alkaline Phosphatase 56 (39-117) U/L Troponin I High Sens < 2.7 < 2.7 (<3.5-35.0) ng/L B-Natriuretic Peptide 16 (<100) pg/mL Total Protein 8.4 H (6.5-8.0) g/dL Albumin 4.8 (3.5-5.0) g/dL Independent Interpretation I performed an independent interpretation of an: EKG (normal sinus no ischemia) and Plain X-Ray (no infiltrate) Tests considered The following testing was considered but not selected: CT of chest considered but low likelihood for PE Prescription Management I considered prescription management with: Antibiotic (no evidence of pneumonia) Discharge Plan Discharge Clinical Impression: Chronic GERD Patient Disposition: Home, Self-Care Instructions: Gastroesophageal Reflux Disease (ED), Noncardiac Chest Pain (ED) Prescriptions: New pantoprazole [Protonix] 40 mg tablet,delayed release (DR/EC) 40 mg PO DAILY Qty: 20 0RF No Action triamcinolone acetonide 0.5 % cream 1 appl topical BID 30 Days Qty: 15 1RF tamsulosin 0.4 mg capsule 0.4 mg PO BEDTIME 90 Days Qty: 90 1RF triamcinolone acetonide 0.1 % cream 1 appl topical BID-TID chlorhexidine gluconate [Periogard] 0.12 % mouthwash 15 ml buccal DAILY fluticasone propionate 50 mcg/actuation spray,suspension 1 spray intranasal DAILY 30 Days Qty: 16 1RF Rx Instructions: administer into each nostril diclofenac sodium [Arthritis Pain (diclofenac)] 1 % gel 2 g topical ONCE 30 Days Qty: 100 3RF Rx Instructions: apply to single elbow, wrist or hand; for hand includes palm/fingers/back of hand sertraline 50 mg tablet 50 mg PO DAILY 90 Days Qty: 90 1RF bupropion HCl 150 mg tablet sustained-release 12 hr 150 mg PO QAM 90 Days Qty: 90 2RF nabumetone 750 mg tablet 750 mg PO BID PRN (Reason: pain) 30 Days Qty: 60 1RF finasteride 5 mg tablet 5 mg PO DAILY 90 Days Qty: 90 1RF Referrals: Roger Norris PA-C [Primary Care Provider] - 1 week
[2023-06-19 15:03] LABS: MANUAL DIFF FLAG NO
[2023-06-19 15:08] LABS: Basophils Percent Auto 0.2 % (0-2); Eosinophils Absolute Auto 0.1 X10*3/uL (0.0-0.4); Eosinophils Percent Auto 1.1 % (0-4); Hematocrit 40.7 % (42.0-52.0); Hemoglobin 14.4 g/dl (14.0-18.0); Imm Gran Abs Auto 0.01 X10*3/uL (0.00-0.03); Imm Gran Pct Auto 0.2 % (0.0-0.4); Lymphocytes Absolute Auto 1.3 X10*3/uL (1.2-4.9); Lymphocytes Percent Auto 27.5 % (20-40); Mean Corpuscular HGB Conc 35.4 g/dl (31.0-36.0); Mean Corpuscular Hemoglobin 32.6 pg (27.0-33.0); Mean Corpuscular Volume 92.1 fL (80.0-98.0); Mean Platelet Volume 9.7 fL (9.4-12.4); Monocytes Absolute Auto 0.4 X10*3/uL (0.1-1.2); Neutrophils Absolute Auto 2.8 x10*3/uL (2.0-8.3); Platelet Count 156 X10*3/uL (160-400); Red Blood Count 4.42 X10*6/uL (4.60-5.80); Red Cell Distribution Width 12.5 % (11.0-16.0); White Blood Count 4.6 X10*3/uL (4.8-10.8)
[2023-06-19 15:27] LABS: Alanine Aminotransferase 28 U/L (0-40); Albumin Level 4.8 g/dL (3.5-5.0); Alkaline Phosphatase 56 U/L (39-117); Anion Gap 13 (12-20); Aspartate Amino Transferase 28 U/L (5-37); Bilirubin Direct 0.3 mg/dL (0.0-0.5); Bilirubin Total 1.1 mg/dL (0.0-1.0); Blood Urea Nitrogen 14 mg/dL (9-16); Calcium 10.4 mg/dL (8.4-10.2); Carbon Dioxide 25 mmol/L (22-29); Chloride 105 mmol/L (96-108); Creatinine Clr Calc Pharmacy 88.9; Estimated Glomerular Filt Rate > 60; Glucose Random 106 mg/dL (60-115); Magnesium 1.9 mg/dL (1.6-2.6); Potassium 4.1 mmol/L (3.3-5.1); Sodium 139 mmol/L (135-145); Total Protein 8.4 g/dL (6.5-8.0)
[2023-06-19 15:28] LABS: B Type Natriuretic Peptide 16 pg/mL (<100)
[2023-06-19 15:36] LABS: Troponin-I High Sensitivity < 2.7 ng/L (<3.5-35.0)
[2023-06-19] MEDS: Famotidine 20 MG TABLET PO (19:18)
[2023-06-19 19:48] LABS: Troponin-I High Sensitivity < 2.7 ng/L (<3.5-35.0)
--- NOTE | 2023-06-19 19:51 | PC.NURSE ---
This va underwriter assumed care at 1900, Pt AOx3, pt denies pain, describes pressure in substernal chest. Meds given per OCT. Repeat troponin drawn and sent to lab awaiting results. Pt aware of plan.
[2023-06-19 20:06] VITALS: BP 128/79; PULSE 52; O2SAT 99
== END 2023-06-19 20:35 | disposition home or self-care (01) ==
PROVIDERS: Physician Assistant; Emergency Provider Emergency Medicine; PCP Physician Assistant
DX: K21.9 Gastro-esophageal reflux disease without esophagitis (principal); R06.02 Shortness of breath; R07.89 Other chest pain; Z79.899 Other long term (current) drug therapy
CPT/HCPCS: 36415; 71046; 80048; 80076; 83735; 83880; 84484; 85025; 93005; 99283; 99284

== ENCOUNTER 2023-07-17 13:47 | Outpatient (AMB) | payer OTHER, SELFPAY ==
--- NOTE | 2023-07-17 14:08 | MHC.PC.OV ---
Vital Signs 07/17/23 14:09 Height 5 ft 11 in Weight 206 lb 6 oz BMI 28.8 BP 128/76 Blood Pressure Location Lt brachial Position Sitting Pulse 57 Pulse Source Pulse Oximeter Pulse Oximetry (%) 98 Oxygen Delivery Method Room Air Intake Visit Reasons: f/u Labs Waste Reduction Coordinator Required: No Accompanied by: Self / Same As Patient Allergies No Known Allergies [No Known Allergies*] Allergy (Verified 07/17/23 14:34) Medication List - Last Reconciled 07/17/23 by Roger Norris PA-C bupropion HCl 150 mg PO QAM 90 days chlorhexidine gluconate 0.12% (Periogard) 15 mL buccal DAILY diclofenac sodium 1% (Arthritis Pain (diclofenac)) 2 grams topical ONCE 30 days finasteride 5 mg PO DAILY 90 days fluticasone propionate 50 mcg/actuation 1 spray intranasal DAILY 30 days nabumetone 750 mg PO BID PRN 30 days pantoprazole (Protonix) 40 mg PO DAILY sertraline 50 mg PO DAILY 90 days tamsulosin 0.4 mg PO BEDTIME 90 days triamcinolone acetonide 0.1% 1 appl topical BID-TID Tobacco use date assessed: 06/04/23 Fall risk assessment: No Falls in past year Last assessed Fall Risk: 07/17/23 Dental Screening Dental Screen Date: 07/17/23 Did you have a dental visit in the last 12 months?: Yes Did you have a dental problem in the last 6 months where you did not have access to dental care?: No Was dental information given to patient?: Patient has dentist HPI f/u Labs HPI Details Patient is a 63-year-old male here today for a follow-up visit Patient has a past medical history significant for hip osteoarthritis, bladder outlet obstruction, major depressive disorder./ Concern--> reports he continues to suffer with sinusitis and rhinitis. He is interested in starting oral antihistamine. Recently was the ER for GERD symptoms was started on pantoprazole although he feels that this medication is not as effective. He would like to return back to using omeprazole 3rd .. Major depressive disorder: Continues on sertraline and Wellbutrin with good effect on his mood. .. BPH/ bladder outlet obstruction: Also does bladder out that obstruction due to BPH and continues on finasteride and tamsulosin. .. Laboratory Tests 06/19/23 06/19/23 14:59 19:17 RBC 4.42 L Hgb 14.4 Troponin I High Se ns < 2.7 PFSH Medical History PVC (premature ventricular contraction) Hx of simple renal cyst Fatty liver HTN (hypertension) Blurred vision, bilateral Depression Anxiety Surgical History Hx of endoscopy History of colonoscopy Family History Father No problems noted. Mother History of cancer Respiratory failure Pulmonary fibrosis Social History Household Members: None Housing: Apartment Are you a primary medicare insurance specialist to a significant other at home: No Do you presently have visiting nurse or other home services: No Alcohol intake: current Alcohol intake frequency: holidays/special occasions only Alcohol type: beer Patient Tobacco Use Status: Never used Tobacco e-Cigarette/Vaping Use: Never Used Second Hand Smoke Exposure: No service: No Current occupational status: disabled Cognitive needs: No Hearing needs: No Vision needs: No Questionnaire Thrive Questionnaire Date Thrive assessed: 06/04/23 DEANNA-7 AMB Questionnaire DEANNA-7 Date DEANNA - 7 assessed: 06/04/23 Source: Developed by Drs. Jose R Grant, Renay Mukherjee, Juan Newton and colleagues, with an educational greta from [employer]. Review of Systems Const Denies headache(s) Eyes Denies loss of vision ENT Denies vertigo, Denies dizziness, Denies headache(s) and Denies sore throat Card Denies chest pain, Denies leg edema and Denies lightheadedness Resp Denies cough, Denies hemoptysis and Denies wheezing GI Denies abdominal pain, Denies melena, Denies constipation, Denies diarrhea and Denies vomiting Denies dysuria, Denies urinary frequency and Denies urinary urgency Musc Denies arthralgias, Denies joint swelling, Denies numbness and Denies tingling Neuro Denies Abnormal speech present, Denies behavioral changes, Denies vertigo, Denies dizziness, Denies headache(s), Denies loss of vision, Denies memory loss, Denies numbness and Denies tingling Psych Denies anxiety, Denies behavioral changes, Denies depression, Denies memory loss and Denies panic attacks Cody/Lymph Denies easy bleeding and Denies easy bruising Aller/Immun Denies wheezing Physical exam (Primary Care) Vital Signs: Last Vital Signs Pulse 57 07/17/23 14:09 BP 128/76 07/17/23 14:09 Pulse Ox 98 07/17/23 14:09 Oxygen Delivery Method Room Air 07/17/23 14:09 BMI result Body Mass Index 28.8 BMI Assessment/Plan discussion: High Tobacco/Smoking Status: Tobacco use Status Tobacco use date assessed 06/04/23 07/17/23 14:13 Patient Tobacco Use Status Never used Tobacco 07/17/23 14:13 e-Cigarette/Vaping Use Never Used 07/17/23 14:13 Thrive Assessment: Date of Thrive Assessment Date Thrive assessed 06/04/23 07/17/23 14:13 Const Other: OBESE General: healthy appearing, no acute distress, alert and awake Nutritional Appearance: well nourished Orientation/consciousness: oriented to person, oriented to place and oriented to time HENMT Ears: TM's normal bilaterally General nose exam: Normal nasal mucous membranes and turbinates present Eyes Conjunctivae: conjunctivae normal Sclerae: sclerae normal Pupils: Equal, round and reactive pupils present Neck Neck: Yes no lymphadenopathy and Yes no JVD Thyroid: Thyroid normal Carotids: no bruits Resp Effort & Inspection: normal respiratory effort and not tachypneic Auscultation: no crackles, no rales, no rhonchi and no wheezes Cardio Rate: regular rate Rhythm: regular rhythm Heart sounds: no murmurs and normal S1 and S2 GI Palpation (GI): Soft to palpation, nontender, no hepatomegaly and no splenomegaly Auscultation: normal bowel sounds Skin General skin exam: no rashes or lesions noted and dry skin Neuro General: oriented to person, oriented to place and oriented to time Cranial nerves: Yes Equal, round and reactive pupils present Speech: No Abnormal speech present Gait exam (Neuro): Normal gait present Motor exam (neuro): no tremor noted Extrem Right upper extremity: full ROM Left upper extremity: full ROM Right lower extremity: full ROM; no edema Left lower extremity: full ROM; no edema Psych Mental Status: mental status grossly normal Speech and movement: Normal speech and movement present Affect: normal affect Attitude: cooperative Thought process: Normal thought process present Assessment and Plan Assessment & Plan (1) Allergic rhinitis: Code(s): J30.9 - Allergic rhinitis, unspecified Qualifiers: Allergic rhinitis seasonality: seasonal Allergic rhinitis trigger: pollen Qualified Code(s): J30.1 - Allergic rhinitis due to pollen Plan: Will start loratadine on a daily basis for his of allergy symptoms. (2) Normochromic normocytic anemia: Code(s): D64.9 - Anemia, unspecified Plan: Followed by Hematology for his anemia. I will continue to follow CBC (3) Chronic GERD: Code(s): K21.9 - Gastro-esophageal reflux disease without esophagitis Plan: Return back to using omeprazole for his GERD symptoms. Again advised on with reducing gastric irritant foods and watching his diet and he does agree and understand. Medications: New omeprazole 40 mg PO DAILY 30 days 30 caps 3RF K21.9 - Gastro-esophageal reflux disease without esophagitis loratadine (Allergy Relief (loratadine)) 10 mg PO DAILY 90 days 90 tabs 1RF J30.1 - Allergic rhinitis due to pollen Discontinued pantoprazole (Protonix) Discontinued Reason: Doctor's Order 40 mg PO DAILY 20 tabs 0RF Coding Level of Care Code Est Pt Level 3 (51535) Diagnoses Seasonal allergic rhinitis due to pollen J30.1 Allergic rhinitis seasonality: seasonal Allergic rhinitis trigger: pollen Normochromic normocytic anemia D64.9 Chronic GERD K21.9
[2023-07-17 14:09] VITALS: BP 128/76; PULSE 57; O2SAT 98; BMI 28.8
== END 2023-07-17 14:57 | disposition home or self-care (01) ==
PROVIDERS: PCP Internal Medicine; Visit Provider Physician Assistant
DX: J30.1 Allergic rhinitis due to pollen (principal); D64.9 Anemia, unspecified; K21.9 Gastro-esophageal reflux disease without esophagitis
CPT/HCPCS: 99213

== ENCOUNTER 2023-11-26 15:46 | Outpatient (REF) | payer OTHER, SELFPAY | END 2023-11-26 15:47 | disposition home or self-care (01) | LOC: HO.LAB 15:46 | PROVIDERS: PCP Internal Medicine; Visit Provider Urology | DX: N39.0 Urinary tract infection, site not specified (principal); N53.14 Retrograde ejaculation; N40.1 Benign prostatic hyperplasia with lower urinary tract symptoms; N13.8 Other obstructive and reflux uropathy; R33.8 Other retention of urine; Z79.899 Other long term (current) drug therapy | CPT/HCPCS: 51798; 81003; 87086; 87088; 87186; 99212 ==

== ENCOUNTER 2023-11-26 15:46 | Outpatient (AMB) | payer OTHER, SELFPAY ==
--- NOTE | 2023-11-26 16:00 | MHC.OFFVIS ---
Intake Intake Visit Reasons: 6m PVR(Confirmed) Intake Note: Patient is Present for Follow Up Urology Medication:Finasteride, Tamsulosin Antibiotic Allergies: None Blood Thinners: None PVR: 50 Allergies No Known Allergies [No Known Allergies*] Allergy (Verified 07/17/23 14:34) HPI HPI Comments History of Present Illness Details Davon is a pleasant male. He is a patient of Dr. Flores. He is seen for the following urologic conditions - lower urinary tract symptoms PVR 50 cc Continued good emptying PSA to have infection Bactrim provided Six-month follow-up Lower urinary tract symptoms Episode of urinary retention 03/23 Initiated alpha-jose luis Has noted retrograde ejaculation Addition finasteride Labs - 10/25 P 0.8, T 612 US left testicular microlithiasis and small varicocele Plan follow-up 6 months PFSH Medical History PVC (premature ventricular contraction) Hx of simple renal cyst Fatty liver HTN (hypertension) Blurred vision, bilateral Depression Anxiety Surgical History Hx of endoscopy History of colonoscopy Family History Father No problems noted. Mother History of cancer Respiratory failure Pulmonary fibrosis Social History Household Members: None Housing: Apartment Are you a primary emergency care tech to a significant other at home: No Do you presently have visiting nurse or other home services: No Alcohol intake: current Alcohol intake frequency: holidays/special occasions only Alcohol type: beer Patient Tobacco Use Status: Never used Tobacco e-Cigarette/Vaping Use: Never Used Second Hand Smoke Exposure: No service: No Current occupational status: disabled Cognitive needs: No Hearing needs: No Vision needs: No Review of Systems Const Denies chills and Denies fever(s) Card Reports no additional complaints and Denies syncope Resp Denies cough GI Denies abdominal pain and Denies heartburn Reports as per HPI and Denies change in libido Neuro Denies syncope Psych Denies change in libido Endo Denies change in libido Physical Exam Const General: cooperative, healthy appearing, comfortable and no acute distress Orientation/consciousness: patient oriented x3 HEENT Face and sinus: Yes normal facial exam Mouth: moist mucous membranes Neck Neck: Yes normal visual inspection, Yes full ROM and Yes trachea midline Chest Chest palpation & inspection: normal inspection of the chest Resp Effort & Inspection: normal respiratory effort, able to speak in complete sentences and no respiratory distress GI Inspection: Yes normal to inspection Back/Spine/Pelvis Cervical Spine: normal cervical lordosis Thoracic/Lumbar Spine: thoracic and lumbar spine normal to inspection Skin General skin exam: no rashes or lesions noted Neuro General: patient oriented x3, gait normal, tone normal and moves all extremities Extrem General: Yes normal to inspection and Yes capillary refill normal Office Procedures Post Void Residual Post Residual Void Post Void Residual (PVR): 50 [id number] Void Residual by ultrasound Results AMB Urinalysis, Automated UA Leukoctes 0 Donovan/uL Last Edit by Sarah Nazario [facility] on 11/26/23 16:23 UA Nitrite Positive Last Edit by Sarah Nazario [facility] on 11/26/23 16:23 UA Urobilinogen 0.2 mg/dL Last Edit by Sarah Nazario [facility] on 11/26/23 16:23 UA Protein 0 mg/dL Last Edit by Sarah Nazario [facility] on 11/26/23 16:23 UA pH 5.5 Last Edit by Sarah Nazario [facility] on 11/26/23 16:23 UA Blood 0 Jose/uL Last Edit by Sarah Nazario [facility] on 11/26/23 16:23 UA Specific [place] 1.025 Last Edit by Sarah Nazario [facility] on 11/26/23 16:23 UA Ketone Negative Last Edit by Sarah Nazario [facility] on 11/26/23 16:23 UA Bilirubin 0 mg/dL Last Edit by Sarah Nazario [facility] on 11/26/23 16:23 UA Glucose 0 mg/dL Last Edit by Sarah Nazario [facility] on 11/26/23 16:23 Results Reviewed Results Reviewed: Laboratory Last Values Urine pH (Auto) 5.5 11/26/23 16:21 Specific [place] (Auto) 1.025 11/26/23 16:21 Urine Protein (Auto) 0 mg/dL 11/26/23 16:21 Glucose (UA)(Auto) 0 mg/dL 11/26/23 16:21 Urine Ketones (Auto) Negative 11/26/23 16:21 Urine Blood (Auto) 0 Jose/uL 11/26/23 16:21 Urine Nitrite (Auto) Positive 11/26/23 16:21 Urine Bilirubin (Auto) 0 mg/dL 11/26/23 16:21 Urine Urobilinogen (Auto) 0.2 mg/dL 11/26/23 16:21 Leukocyte Esterase (Auto) 0 Donovan/uL 11/26/23 16:21 Assessment & Plan Assessment & Plan (1) Complicated urinary tract infection: Code(s): N39.0 - Urinary tract infection, site not specified (2) Bladder outlet obstruction: Code(s): N32.0 - Bladder-neck obstruction (3) Incomplete emptying of bladder due to benign prostatic hyperplasia: Code(s): N40.1 - Benign prostatic hyperplasia with lower urinary tract symptoms; R33.9 - Retention of urine, unspecified Plan Six-month follow-up UA Orders: Orders AMB Urinalysis Automated 11/26/23 Z13.9 - Encounter for screening, unspecified Urine Culture 11/26/23 N39.0 - Urinary tract infection, site not specified AMB Post Void Residual by ultrasound 11/26/23 R33.9 - Retention of urine, unspecified Medications: New sulfamethoxazole-trimethoprim 800-160 mg (Bactrim DS) 1 tab PO BID 10 tabs 0RF 5 days N39.0 - Urinary tract infection, site not specified Patient Instructions: Imaging studies, laboratory and physical exam results were discussed and reviewed in detail. No major barriers to patient understanding were identified. An opportunity to ask questions regarding the treatment plan was provided. All questions were answered. The patient expressed understanding and agreement with the above treatment plan. The patient is aware they should contact our office by phone for worsening of their current condition or the appearance of new urologic symptoms. Compliance is encouraged with any medications and followup testing that is ordered. It is a privilege to participate in the urologic care of your patient. If you have any questions or concerns regarding treatment for the above conditions, or other urologic issues, please do not hesitate to contact me. The office telephone contact is [phone]. This note is constructed using voice recognition software. While every effort has been made to ensure accuracy security flex utility officer errors may have been included. Yours sincerely, Dr James Singh MD, [facility] - Urology Providers of Expert, Compassionate Care for the Genitourinary System Coding Level of Care Code Est Pt Level 4 (86881) Diagnoses Complicated urinary tract infection N39.0 Bladder outlet obstruction N32.0 Incomplete emptying of bladder due to benign prostatic hyperplasia N40.1; R33.9 CPT Codes Post Residual Void - PVR CPT Code: 56995-Klum Void Residual by ultrasound ([id number])
== END 2023-11-26 16:28 | disposition home or self-care (01) ==
PROVIDERS: PCP Internal Medicine; Visit Provider Urology
DX: N39.0 Urinary tract infection, site not specified (principal); N32.0 Bladder-neck obstruction; N40.1 Benign prostatic hyperplasia with lower urinary tract symptoms; R33.9 Retention of urine, unspecified
CPT/HCPCS: 99214

== ENCOUNTER 2024-01-15 14:36 | Outpatient (AMB) | payer OTHER, SELFPAY ==
[2024-01-15 15:14] VITALS: BP 130/82; PULSE 56; O2SAT 98; BMI 28.9
--- NOTE | 2024-01-15 15:14 | MHC.PC.OV ---
Vital Signs 01/15/24 15:14 Height 5 ft 11 in Weight 207 lb 6 oz BMI 28.9 BP 130/82 Blood Pressure Location Lt brachial Position Sitting Pulse 56 Pulse Source Pulse Oximeter Pulse Oximetry (%) 98 Oxygen Delivery Method Room Air Intake Visit Reasons: f/u GERD/allergic rhinitis Technology Consultant Required: No Accompanied by: Self / Same As Patient Allergies No Known Allergies [No Known Allergies*] Allergy (Verified 01/15/24 15:34) Medication List - Last Reconciled 01/15/24 by Roger Norris PA-C bupropion HCl SR 150 mg PO QAM 90 days chlorhexidine gluconate 0.12% (Periogard) 15 mL buccal DAILY diclofenac sodium 1% (Arthritis Pain (diclofenac)) 2 grams topical ONCE 30 days finasteride 5 mg PO DAILY 90 days fluticasone propionate 50 mcg/actuation 1 spray intranasal DAILY 30 days loratadine (Allergy Relief (loratadine)) 10 mg PO DAILY 90 days nabumetone 750 mg PO BID PRN 30 days omeprazole 40 mg PO DAILY 30 days sertraline 50 mg PO DAILY 90 days sulfamethoxazole-trimethoprim 800-160 mg (Bactrim DS) 1 tab PO BID 5 days tamsulosin 0.4 mg PO BEDTIME 90 days triamcinolone acetonide 0.1% 1 appl topical BID-TID Tobacco use date assessed: 01/15/24 Fall risk assessment: No Falls in past year Last assessed Fall Risk: 01/15/24 Dental Screening Dental Screen Date: 01/15/24 Did you have a dental visit in the last 12 months?: Yes Did you have a dental problem in the last 6 months where you did not have access to dental care?: No Was dental information given to patient?: Patient has dentist HPI f/u GERD/allergic rhinitis HPI Details Patient is a 63-year-old male here today for a follow-up visit Patient has a past medical history significant for hip osteoarthritis, bladder outlet obstruction, major depressive disorder./ Concern--> HAS MULTIPLE SOMATIC COMPLAINTS TODAY INCLUDING LOWER BACK PAIN THAT RADIATES DOWN HIS RIGHT LOWER EXTREMITY, RIGHT HAND PARESTHESIAS AND PAIN WORSE AT NIGHT, CONTINUED BILATERAL EYE IRRITATION... .. Major depressive disorder: Continues on sertraline and Wellbutrin with good effect on his mood. .. BPH/ bladder outlet obstruction: Also does bladder out that obstruction due to BPH and continues on finasteride and tamsulosin. Elevated liver enzymes: Reviewed labs with patient and noted a slightly elevation in his LFTs. Of note patient does have a history of fatty liver disease. He denies any excessive alcohol intake, Tylenol use or supplement use. Will recheck liver enzymes in the next 2 weeks. Laboratory Tests 01/03/24 15:04 RBC 4.22 L Hgb 13.7 L Creatinine 0.94 AST 63 H ALT 95 H PSA Screen 1.11 PFS Medical History (Updated 01/15/24 @ 15:58 by Roger Norris PA-C) PVC (premature ventricular contraction) Hx of simple renal cyst Fatty liver HTN (hypertension) Blurred vision, bilateral Depression Anxiety Surgical History Hx of endoscopy History of colonoscopy Family History Father No problems noted. Mother History of cancer Respiratory failure Pulmonary fibrosis Social History Household Members: None Housing: Apartment Are you a primary district manager primary care sales to a significant other at home: No Do you presently have visiting nurse or other home services: No Alcohol intake: current Alcohol intake frequency: holidays/special occasions only Alcohol type: beer Patient Tobacco Use Status: Never used Tobacco e-Cigarette/Vaping Use: Never Used Second Hand Smoke Exposure: No service: No Current occupational status: disabled Cognitive needs: No Hearing needs: No Vision needs: No Questionnaire PHQ-9 Over the last 2 weeks, how often have you been bothered by any of the following problems? 1. Little interest or pleasure in doing things: several days 2. Feeling down, depressed, or hopeless: several days 3. Trouble falling or staying asleep, or sleeping too much: nearly every day 4. Feeling tired or having little energy: more than half the days 5. Poor appetite or overeating: not at all 6. Feeling bad about yourself - or that you are a failure or have let yourself or your family down: not at all 7. Trouble concentrating on things, such as reading the newspaper or watching television: not at all 8. Moving or speaking so slowly that other people could have noticed. Or the opposite - being so fidgety or restless that you have been moving around a lot more than usual: not at all 9. Thoughts that you would be better off or of hurting yourself in some way: not at all Total score: 7 Depression Screening Interpretation: Positive Depression Screening Follow-up: Existing condition and In treatment Depression Screening Done: Yes 79777 - PHQ-9 Billing: Yes Source: Developed by Drs. Jose R Grant, Renay Mukherjee, Juan Newton and colleagues, with an educational greta from [employer]. Thrive Questionnaire Date Thrive assessed: 01/15/24 I am a: Patient What is your living situation today?: I have a steady place to live Within the past 12 months, did the food you bought not last and you didn't have the money to get more?: Never true Within the past 12 months, did you worry whether your food would run out before you got money to buy more?: Never true Do you have trouble paying for medicines?: No Do you have trouble getting transportation to medical appointments?: No Do you have trouble paying your heating and electricity bill?: No Do you have trouble taking care of your child, family member or friend?: No Do you have trouble with day-to-day activities such as bathing, preparing meals, shopping, managing finances, etc.?: No Are you currently unemployed and looking for a job?: No Are you interested in more education?: No Please select the resources that you would like help with: None Currently or been in a relationship where the following occur: no concerns reported THRIVE Score: 0 AUDIT C Alcohol Use Questionnaire (AUDIT-C) 1. How often do you have a drink containing alcohol?: Monthly or less 2. How many drinks containing alcohol do you have on a typical day when you are drinking?: 1 or 2 3. How often do you have six or more drinks on one occasion?: Never Total Score: 1 Score Reviewed/Action Taken: Yes DEANNA-7 AMB Questionnaire DEANNA-7 Date DEANNA - 7 assessed: 01/15/24 Feeling nervous, anxious, or on edge: 0 = Not at all Not being able to stop or control worryin = Not at all Worrying too much about different things: 0 = Not at all Trouble relaxin = Not at all Being so restless that it is hard to sit still: 0 = Not at all Becoming easily annoyed or irritable: 0 = Not at all Feeling afraid as if something awful might happen: 0 = Not at all Total DEANNA-7 score (0-4 normal; 5-9 mild; 10-14 moderate; 15-21 severe): 0 Source: Developed by Drs. Jose R Grant, Renay Mukherjee, Juan Newton and colleagues, with an educational greta from [employer]. DEANNA-7 Assessment Billing DEANNA-7 Assessment Tool: DEANNA-7 Assessment 33954 Review of Systems Const Denies headache(s) Eyes Reports dry eyes, Reports irritation and Denies loss of vision ENT Denies vertigo, Denies dizziness, Denies headache(s) and Denies sore throat Card Denies chest pain, Denies leg edema and Denies lightheadedness Resp Denies cough, Denies hemoptysis and Denies wheezing GI Reports abdominal pain, Denies melena, Denies constipation, Denies diarrhea and Denies vomiting Denies dysuria, Denies urinary frequency and Denies urinary urgency Musc Details: + right hand pain and numbness Reports back pain, Denies arthralgias, Denies joint swelling, Reports numbness and Denies tingling Neuro Denies Abnormal speech present, Denies behavioral changes, Denies vertigo, Denies dizziness, Denies headache(s), Denies loss of vision, Denies memory loss, Reports numbness and Denies tingling Psych Denies anxiety, Denies behavioral changes, Denies depression, Denies memory loss and Denies panic attacks Cody/Lymph Denies easy bleeding and Denies easy bruising Aller/Immun Denies wheezing Physical exam (Primary Care) Vital Signs: Last Vital Signs Pulse 56 01/15/24 15:14 BP 130/82 01/15/24 15:14 Pulse Ox 98 01/15/24 15:14 Oxygen Delivery Method Room Air 01/15/24 15:14 BMI result Body Mass Index 28.9 Tobacco/Smoking Status: Tobacco use Status Tobacco use date assessed 01/15/24 01/15/24 15:21 Patient Tobacco Use Status Never used Tobacco 01/15/24 15:16 e-Cigarette/Vaping Use Never Used 01/15/24 15:16 PHQ-9: PHQ-9 Score PHQ-9: Total score 7 01/15/24 15:37 Depression Screening Interpretation: Positive Depression Screening Follow-up: Existing condition and In treatment Thrive Assessment: Date of Thrive Assessment Date Thrive assessed 01/15/24 01/15/24 15:22 Currently or been in a relationship where the following occur: no concerns reported Const General: healthy appearing, no acute distress, alert and awake Nutritional Appearance: well nourished Orientation/consciousness: oriented to person, oriented to place and oriented to time HENMT Ears: TM's normal bilaterally General nose exam: Normal nasal mucous membranes and turbinates present Eyes Conjunctivae: conjunctivae normal Sclerae: sclerae normal Pupils: Equal, round and reactive pupils present Neck Neck: Yes no lymphadenopathy and Yes no JVD Thyroid: Thyroid normal Carotids: no bruits Resp Effort & Inspection: normal respiratory effort and not tachypneic Auscultation: no crackles, no rales, no rhonchi and no wheezes Cardio Rate: regular rate Rhythm: regular rhythm Heart sounds: no murmurs and normal S1 and S2 GI Palpation (GI): Soft to palpation, nontender, no hepatomegaly and no splenomegaly Auscultation: normal bowel sounds Skin General skin exam: no rashes or lesions noted and dry skin Neuro General: oriented to person, oriented to place and oriented to time Cranial nerves: Yes Equal, round and reactive pupils present Speech: No Abnormal speech present Gait exam (Neuro): Normal gait present Motor exam (neuro): no tremor noted Extrem Right upper extremity: full ROM Left upper extremity: full ROM Right lower extremity: full ROM; no edema Left lower extremity: full ROM; no edema Psych Mental Status: mental status grossly normal Speech and movement: Normal speech and movement present Affect: normal affect Attitude: cooperative Thought process: Normal thought process present Assessment and Plan Assessment & Plan (1) Lumbar spine pain: Code(s): M54.50 - Low back pain, unspecified Plan: Continues to have lumbar spine pain and signs and symptoms of radiculopathy. Did have x-ray of his lumbar spine in 2021 that showed some multilevel mild degenerative lumbar spine disease. Was followed by pain management though lost follow-up. He is interested in restarting workup starting with lumbar spine x-ray. (2) Allergic rhinitis: Code(s): J30.9 - Allergic rhinitis, unspecified Qualifiers: Allergic rhinitis seasonality: seasonal Allergic rhinitis trigger: pollen Qualified Code(s): J30.1 - Allergic rhinitis due to pollen Plan: Will start loratadine on a daily basis for his of allergy symptoms. (3) Chronic GERD: Code(s): K21.9 - Gastro-esophageal reflux disease without esophagitis Plan: Return back to using omeprazole for his GERD symptoms. Again advised on with reducing gastric irritant foods and watching his diet and he does agree and understand. (4) Elevated LFTs: Code(s): R79.89 - Other specified abnormal findings of blood chemistry Plan: Noted an elevation in his LFTs. Does have history fatty liver disease which was seen on ultrasound 2021. Continues to follow gastroenterology. Will recheck liver enzymes in 2 weeks. (5) Chronic idiopathic constipation: Code(s): K59.04 - Chronic idiopathic constipation Plan: Continues to follow gastroenterology (6) Lower abdominal pain: Code(s): R10.30 - Lower abdominal pain, unspecified Plan: Continues to have lower abdominal pain and is interested in further workup. Will get CT of abdomen to evaluate for colitis. He also does have fatty liver disease and along with a right simple kidney cyst --> Needs surveillance on these abnormalities as well. (7) Right hand paresthesia: Code(s): R20.2 - Paresthesia of skin Plan: Reports over the last several weeks having intermittent right hand and wrist pain and numbness. Some of the numbness is worse at night. Signs and symptoms concerning for median nerve neuropathy thus will send for EMG testing to evaluate. Orders: Orders Liver Panel 01/15/24 R79.89 - Other specified abnormal findings of blood chemistry CT abdomen w IV con 01/15/24 K59.04 - Chronic idiopathic constipation, R10.30 - Lower abdominal pain, unspecified, R79.89 - Other specified abnormal findings of blood chemistry, Z87.448 - Personal history of other diseases of urinary system XR lumbar spine 4V min 01/15/24 M54.50 - Low back pain, unspecified NE electromyogram (EMG) 01/15/24 R20.2 - Paresthesia of skin Medications: Discontinued sulfamethoxazole-trimethoprim 800-160 mg (Bactrim DS) Discontinued Reason: Doctor's Order 1 tab PO BID 5 days 10 tabs 0RF N39.0 - Urinary tract infection, site not specified Coding Level of Care Code Est Pt Level 4 (62053) Diagnoses Lumbar spine pain M54.50 Seasonal allergic rhinitis due to pollen J30.1 Allergic rhinitis seasonality: seasonal Allergic rhinitis trigger: pollen Chronic GERD K21.9 Elevated LFTs R79.89 Chronic idiopathic constipation K59.04 Lower abdominal pain R10.30 Right hand paresthesia R20.2 Additional Codes DEANNA-7 Assessment Billing - DEANNA-7 Assessment Tool: DEANNA-7 Assessment [id number] ([id number])
== END 2024-01-15 16:02 | disposition home or self-care (01) ==
PROVIDERS: PCP Physician Assistant; Visit Provider Physician Assistant
DX: M54.50 Low back pain, unspecified (principal); J30.1 Allergic rhinitis due to pollen; K21.9 Gastro-esophageal reflux disease without esophagitis; R79.89 Other specified abnormal findings of blood chemistry; K59.04 Chronic idiopathic constipation; R10.30 Lower abdominal pain, unspecified; R20.2 Paresthesia of skin
CPT/HCPCS: 99214

== ENCOUNTER 2024-01-22 10:32 | Outpatient (REF) | payer OTHER, SELFPAY ==
--- NOTE | ~2024-01-22 | XR_ITS ---
EXAMINATION: XR LUMBOSACRAL SPINE CLINICAL INFORMATION: Low back pain unspecified. COMPARISON: Lumbar spine 07/19/2022. Chest radiograph 06/19/2023. TECHNIQUE: 4 views of the lumbosacral spine. FINDINGS: Bilateral sacroiliac joints are maintained. Facet arthritis in the lower lumbar spine. Mild multilevel lumbar spondylosis. Lumbar disc space heights are preserved. XR/XR lumbar spine 2-3V IMPRESSION: 1. Facet arthritis in the lower lumbar spine. 2. Mild multilevel lumbar spondylosis.
[2024-01-22 11:43] LABS: Alanine Aminotransferase 81 U/L (0-40); Albumin Level 4.4 g/dL (3.5-5.0); Alkaline Phosphatase 56 U/L (39-117); Aspartate Amino Transferase 53 U/L (5-37); Bilirubin Direct 0.3 mg/dL (0.0-0.5); Bilirubin Total 1.1 mg/dL (0.0-1.0); Total Protein 7.9 g/dL (6.5-8.0)
== END 2024-01-22 10:33 | disposition home or self-care (01) ==
LOC: HO.LAB 10:32
PROVIDERS: PCP Physician Assistant; Visit Provider Physician Assistant
DX: M54.50 Low back pain, unspecified (principal); R79.89 Other specified abnormal findings of blood chemistry
CPT/HCPCS: 36415; 72100; 80076

== ENCOUNTER 2024-01-28 08:41 | Outpatient (REF) | payer OTHER, SELFPAY ==
--- NOTE | 2024-01-28 08:44 | EMG_ITS ---
Right median and ulnar motor and sensory studies were performed. Right median and lateral antecubital brachial and radial sensory study was performed and paraspinal muscles were tested with a needle. IMPRESSION: [id number] right ulnar neuropathy across cubital tunnel. MD KATHY Mcleod/KATHY / [id number]
== END 2024-01-28 08:42 | disposition home or self-care (01) ==
LOC: HO.NEURO 08:41
PROVIDERS: PCP Physician Assistant; Visit Provider Physician Assistant
DX: R20.2 Paresthesia of skin (principal)
CPT/HCPCS: 95886; 95910

== ENCOUNTER 2024-02-21 13:01 | Outpatient (AMB) | payer OTHER, SELFPAY ==
--- NOTE | 2024-02-21 13:06 | MHC.OFFVIS ---
Vital Signs 02/21/24 13:10 Height 5 ft 11 in Weight 210 lb BMI 29.3 BP 163/80 H Blood Pressure Location Rt brachial Position Sitting Pulse 52 Pulse Source Pulse Oximeter Pulse Oximetry (%) 97 Oxygen Delivery Method Room Air Intake Visit Reasons: Low back pain, unspecified Allergies No Known Allergies [No Known Allergies*] Allergy (Verified 02/21/24 13:11) HPI Comments Details: Patient presents today for follow up for low back and bilateral hip pain. He was last seen in our office in August 2022 with plans for PT and potential hip injections. Patient reports he completed PT at [place] and continues to perform home exercise program but notices current NSAID (nabumetome bid prn) is not providing him a longer analgesia effect. He rates his pain at 3/10 with rest and states it increases to 6-7/10 with weight bearing, walking and movements. Patient is not interested in intra-articular injections with fluoroscopy guidance at this time. He is interested to rotate his NSAID medication. Denies any recent cough, cold, infection, fever, bladder or bowel dysfunction, saddle anesthesia, any significant changes in her medical history, medications or recent hospitalizations. PRIOR 08/07/22: Patient presents today via telehealth encounter for medication and xray review. Patient continues to endorse lower back pain, lateral hip and buttocks pain with bilateral foot pain. He was referred to podiatry services by his PCP recently for foot pain. He notes that tizanidine and diclofenac potassium are partially alleviating his pain. His lumbar spine and SIJ imaging is unremarkable except moderate lateral spurring L2-L3 and L3-L4 disc level. Previous hip xray showed mild to moderate osteoarthritic change of the bilateral hips. Patient is hesitant towards hip injections at this time, including with sedation. He is interested to pursue [facility] PT to decrease his symptoms and improve overall functioning with daily activities. PRIOR: Patient is a pleasant 62 years old male who presents with chronic low and bilateral hip pain for about 2 years. Denies any inciting event, trauma, injury or falls. His back pain is axial but also radiates across his back into his bilateral buttocks and into left lower extremity posteriorly with associated tingling and numbness in his left toes. Patient also presents with mild groin pain bilaterally with pins and needles sensations in his right anterior thigh. His left leg appears mildly longer than right leg with supine position. Pain is described as constant sharp, cutting, hot burning sensations, scalding, searing, punishing, cool, cold, and freezing. Bending, walking, rising to standing position and weather changes increase his pain. Pain affects his daily activities, functioning, sleep, mood, social interactions and quality of life. He rates his pain at 7/10. Patient reports he was treated with PT and lumbar injections for spinal stenosis in 2002 while living in [place]. He reports last lumbar spine MRI imaging was done about 1-2 years ago at [facility]. Per [facility] review, the patient was scheduled for MRI on 01/2021 but has not completed it. Recent hips with pelvis view imaging showed degenerative change of the lower lumbar spine and mild to moderate osteoarthritic change of the bilateral hips. Patient denies any fever, weight changes, malaise, dizziness, abdominal pain, bowel or bladder incontinence, or saddle anesthesia. Patient reports weakness in the left lower extremity. Ambulates with antalgic gait without assisting devices. Patient uses a cane at home. [facility] Medical History PVC (premature ventricular contraction) Hx of simple renal cyst Fatty liver HTN (hypertension) Blurred vision, bilateral Depression Anxiety Surgical History Hx of endoscopy History of colonoscopy Family History Father No problems noted. Mother History of cancer Respiratory failure Pulmonary fibrosis Social History Household Members: None Housing: Apartment Are you a primary housekeeper child care to a significant other at home: No Do you presently have visiting nurse or other home services: No Alcohol intake: current Alcohol intake frequency: holidays/special occasions only Alcohol type: beer Patient Tobacco Use Status: Never used Tobacco e-Cigarette/Vaping Use: Never Used Second Hand Smoke Exposure: No service: No Current occupational status: disabled Cognitive needs: No Hearing needs: No Vision needs: No Review of Systems Const All systems reviewed & are unremarkable except as noted in HPI and below Physical Exam Vital Signs: Last Vital Signs Pulse 52 02/21/24 13:10 BP 163/80 H 02/21/24 13:10 Pulse Ox 97 02/21/24 13:10 Oxygen Delivery Method Room Air 02/21/24 13:10 BMI result Body Mass Index 29.3 General: Appears afebrile. No acute distress. Alert and oriented. Mood and affect appropriate. Follows and participates in conversation appropriately. Respiratory effort is unlabored. No cough. Able to transition from sit to stand unassisted. Ambulates with bilaterally normal heel strike and toe off. Back/Spine/Pelvis Other: Limited lumbar ROM due to pain. Mildly antalgic gait with mild limping. Can flex forward to 70-75 degrees and extend to 5-10 degrees before experiencing lumbar pain. Demonstrates 5/5 left 4/5 right due to pain strength of quadriceps bilaterally as well as flexion/dorsiflexion of bilateral feet against resistance. 2+ pedal pulses bilaterally. Straight leg rise with dorsiflexion negative bilaterally. Diminished patellar and achilles reflexes bilaterally. Facet loading test positive bilaterally. Keya signs and Levi?s positive bilaterally, Stinchfield tests are negative bilaterally. Mild groin pain with I/E hip rotations bilaterally, right>left. Cervical Spine: cervical ROM normal and No Cervical spine tenderness Thoracic/Lumbar Spine: thoracic and lumbar spine normal to inspection, No Thoracic/lumbar spine scar(s), Lasegue's sign negative, straight leg raise negative bilaterally, pain with thoraco-lumbar ROM, paraspinal muscle tenderness, thoraco-lumbar ROM limited, No thoracic spinal tenderness and lumbar spinal tenderness at L4 and at L5 Pelvis: buttock tenderness bilaterally and no sciatic notch tenderness Sacroiliac joints: bilaterally (+Levi's test reproduces lateral hip and low back pain, right>left) tender to palpation Extrem General: Yes capillary refill normal, Yes no clubbing, cyanosis or edema and Yes no calf tenderness Results Reviewed Results Reviewed: XR BILATERAL HIPS WITH AP PELVIS 05/08/22 FINDINGS: Bony alignment and mineralization are normal. The acetabular joint spaces are well-maintained. The bilateral acetabular roofs show subchondral sclerosis and peripheral osteophyte formation. The femoral heads appear smooth. There is no fracture or dislocation. The bilateral sacroiliac joints are symmetric, and the pubic symphysis is intact. There is incompletely characterized degenerative change of the lower lumbar spine. There are iliofemoral atherosclerotic calcifications. IMPRESSION: There is mild to moderate osteoarthritic change of the bilateral hips. No fracture or dislocation is seen. XR LUMBAR SPINE WITH BENDING VIEWS XR SACROILIAC JOINTS 07/19/22 FINDINGS: SI JOINTS: There is normal symmetry of SI joints without sclerosis. No fracture or lytic process seen. The soft tissues are normal. Vascular calcification of bilateral iliac veins are noted. LUMBAR SPINE: There is normal lumbar lordosis. Vertebral heights, alignment and disc heights are normal. There is moderate lateral spurring L2-L3 and L3-L4 disc levels. No lytic or sclerotic process seen. On oblique views no pars defect or listhesis seen. On flexion-extension views there is no subluxation seen. The flexion view is limited. Paravertebral soft tissues are normal. IMPRESSION: Unremarkable SI joints. Unremarkable lumbar spine exam. There is no pars defect, listhesis or subluxation. Assessment & Plan Assessment & Plan (1) OA (osteoarthritis) of hip: Code(s): M16.9 - Osteoarthritis of hip, unspecified Category: Medical Qualifiers: Laterality: bilateral Osteoarthritis type: primary Qualified Code(s): M16.0 - Bilateral primary osteoarthritis of hip (2) Bilateral hip pain: Code(s): M25.551 - Pain in right hip; M25.552 - Pain in left hip Category: Medical (3) Lumbar degenerative disc disease: Code(s): M51.36 - Other intervertebral disc degeneration, lumbar region Category: Medical (4) Lumbar spondylosis: Code(s): M47.816 - Spondylosis without myelopathy or radiculopathy, lumbar region Category: Medical Plan Patient will stop nabumetone and start Ibuprofen bid prn and gabapentin bid. Side effects and precautions were discussed with patient in greater detail. Patient will notify our office if pain worsening and he would like to proceed with Bilateral intra-articular hip steroid injections with sedation and fluoroscopy. Continue home exercise program, avoid pain producing activities, continue good hydration, weight optimization and good posture. All questions and concerns have been answered and patient agree with the plan. Follow up for medication review and sooner as needed. Medications: New ibuprofen Take it with food and full glass of water. Avoid other NSAIDs. 600 mg PO Q8H PRN 60 tabs 0RF pain M16.0 - Bilateral primary osteoarthritis of hip, M25.551 - Pain in right hip, M25.552 - Pain in left hip, M51.36 - Other intervertebral disc degeneration, lumbar region gabapentin 300 mg PO BID 60 caps 0RF pain 30 days M16.0 - Bilateral primary osteoarthritis of hip, M25.551 - Pain in right hip, M25.552 - Pain in left hip, M51.36 - Other intervertebral disc degeneration, lumbar region Discontinued nabumetone Discontinued Reason: Patient Completed Course 750 mg PO BID 30 days PRN 60 tabs 3RF pain M16.0 - Bilateral primary osteoarthritis of hip Coding Level of Care Code Est Pt Level 4 (00405) Diagnoses Primary osteoarthritis of both hips M16.0 Laterality: bilateral Osteoarthritis type: primary Bilateral hip pain M25.551; M25.552 Lumbar degenerative disc disease M51.36 Lumbar spondylosis M47.816
[2024-02-21 13:10] VITALS: BP 163/80; PULSE 52; O2SAT 97; BMI 29.3
== END 2024-02-21 13:38 | disposition home or self-care (01) ==
PROVIDERS: PCP Physician Assistant; Visit Provider Nurse Practitioner Family
DX: M16.0 Bilateral primary osteoarthritis of hip (principal); M25.551 Pain in right hip; M25.552 Pain in left hip; M51.36 Other intervertebral disc degeneration, lumbar region; M47.816 Spondylosis without myelopathy or radiculopathy, lumbar region
CPT/HCPCS: 99214

== ENCOUNTER → 2024-02-21 13:01 | Outpatient (BNVA) | payer OTHER, SELFPAY | PROVIDERS: PCP Physician Assistant; Visit Provider Nurse Practitioner Family | DX: M16.0 Bilateral primary osteoarthritis of hip (principal); M51.36 Other intervertebral disc degeneration, lumbar region; M47.816 Spondylosis without myelopathy or radiculopathy, lumbar region | CPT/HCPCS: 99212 ==

== ENCOUNTER 2024-04-02 13:47 | Outpatient (REF) | payer OTHER, SELFPAY ==
--- NOTE | ~2024-04-02 | CT_ITS ---
EXAMINATION: CT ABDOMEN AND PELVIS WITH CONTRAST CLINICAL INFORMATION: Lower abdominal pain. COMPARISON: None available. TECHNIQUE: Multidetector volumetric images were obtained from the superior aspect of the liver through the pubic symphysis following administration 85 mL of Omnipaque 350 intravenous contrast. Sagittal and coronal reformatted images were obtained on the technologist's workstation. Oral contrast: No This CT examination was performed using dose optimization techniques as appropriate, variously including the following: *Automated exposure control *Adjustment of mA and/or kV according to patient size (this includes techniques or standardized protocols for targeted exams where dose is matched to indication/reason for exam; i.e. extremities or head) *Use of iterative reconstruction technique DLP: 465 mGy-cm FINDINGS: LUNG BASES: The visualized lung bases are unremarkable. LIVER, GALLBLADDER, AND BILIARY TREE: The liver is normal in size, shape, and generally diminished in attenuation. No focal hepatic lesion or biliary ductal dilatation is present. The gallbladder is unremarkable with no evidence of radiopaque gallstones, gallbladder wall thickening, or obvious pericholecystic inflammatory changes. PANCREAS: Unremarkable. SPLEEN: Unremarkable. ADRENAL GLANDS: Unremarkable. KIDNEYS AND URETERS: The kidneys are normal in size, shape, and attenuation. No hydronephrosis, hydroureter, or calculi seen. No perinephric stranding. BLADDER: A 3.2 x 2.7 x 2.5 cm nodule impresses upon the bladder base (4.599 and 8:58). This may arise from the bladder mucosa itself, although the possibility of an exophytic prostate nodule is not excluded. The fat plane interposed between the prostate gland and the urinary bladder is obscured. GASTROINTESTINAL TRACT: The small and large bowel are unremarkable. The appendix is unremarkable. ABDOMINAL WALL: There are small fat-containing umbilical and left inguinal hernias. LYMPH NODES: Normal. VASCULAR: Unremarkable. PELVIC VISCERA: The aforementioned nodule impressing upon the bladder base is noted, as above. There is no prostatomegaly. The seminal vesicles are unremarkable. OSSEOUS STRUCTURES: There is multi-level thoracolumbar spondylosis and Schmorl's node formation. No acute or aggressive osseous finding is noted. CT/CT abdomen pelvis w IV con IMPRESSION: 1. No bowel obstruction, free intraperitoneal air or abscess is seen. There is no appendicitis or diverticulitis. 2. There is hepatic steatosis. 3. A 3.2 cm exophytic nodule is seen impressing upon the bladder lumen towards the base. Whether this arises from the bladder itself or the prostate gland is uncertain. Recommend further evaluation with prostate/bladder ultrasound and a serum PSA level. Urology evaluation and management may be indicated. 4. There are small fat-containing umbilical and left inguinal hernias. 5. No abdominopelvic lymphadenopathy or ascites is seen. 6. There is multi-level thoracolumbar spondylosis. No acute or aggressive osseous finding is seen. Fleischner guidelines were followed. Electronically signed by: Yoan Garza MD 04/28/2024 10:33 AM EDT
[2024-04-02] MEDS: Barium Sulfate Oral (Berry) 450 ML ORAL.SUSP 900 ML PO (16:10)
[2024-04-02] MEDS: iohexoL 350 MG/ML 75 ML INFUS..BTL 85 ML IV (16:10)
[2024-04-04 12:18] LABS: GFR POC > 60
== END 2024-04-02 13:48 | disposition home or self-care (01) ==
LOC: HO.CT 13:47
PROVIDERS: PCP Physician Assistant; Visit Provider Physician Assistant
DX: R10.30 Lower abdominal pain, unspecified (principal); R79.89 Other specified abnormal findings of blood chemistry; K59.09 Other constipation
CPT/HCPCS: 74177; 82565; Q9967

== ENCOUNTER 2024-04-07 13:48 | Outpatient (AMB) | payer OTHER, SELFPAY ==
--- NOTE | 2024-04-07 14:23 | A.OFFVIS_ITS ---
Vital Signs 04/07/24 14:26 Height 5 ft 11 in Weight 210 lb BMI 29.3 Intake Visit Reasons: [employer]- RT hand paresthesia of skin Intake Note: Davon is a 64 yo right hand dominant male who presents today as a new patient for right hand paresthesia of skin that began approximately 1 month ago. Patient reports numbness and tingling but reports it only happens on some days. He also reports his left index is locking on. Patient reports he had an injury to the right hand about 4 to 5 years ago. He states he had a tendon problem, denies fractures. He did PT for the right hand which he found helpful. He was also given a brace that he still uses during day and night, PRN. Reports taking gabapentin and ibuprofen for pain with relief. Allergies No Known Allergies [No Known Allergies*] Allergy (Verified 04/07/24 14:26) HPI HPI [employer]- RT hand paresthesia of skin: Details: Davon is a 64 year old right hand dominant man who presents for a NCS review of his right hand numbness. He complains of numbness in the right ring & small fingers. Symptoms intermittent, but daily, primarily first thing in the mornings. This has been present for several months now. He also complains of bilateral hip pain, R>L. He is wondering who he can speak to about this. [facility] Medical History PVC (premature ventricular contraction) Hx of simple renal cyst Fatty liver HTN (hypertension) Blurred vision, bilateral Depression Anxiety Surgical History Hx of endoscopy History of colonoscopy Family History Father No problems noted. Mother History of cancer Respiratory failure Pulmonary fibrosis Social History (Updated 04/07/24 @ 14:35 by RICHARD Vincent) Household Members: None Housing: Apartment Are you a primary health care recruiter to a significant other at home: No Do you presently have visiting nurse or other home services: No Alcohol intake: current Alcohol intake frequency: holidays/special occasions only Alcohol type: beer Patient Tobacco Use Status: Never used Tobacco e-Cigarette/Vaping Use: Never Used Second Hand Smoke Exposure: No service: No Current occupational status: disabled Current occupation: right handed Cognitive needs: No Hearing needs: No Vision needs: No Review of Systems Const All systems reviewed & are unremarkable except as noted in HPI and below Physical Exam Vital Signs: BMI result Body Mass Index 29.3 Const General: cooperative, healthy appearing and no acute distress Orientation/consciousness: patient oriented x3 HEENT Head: Yes normocephalic and Yes atraumatic Eyes EOM: EOMs intact bilaterally Resp Effort & Inspection: normal respiratory effort and able to speak in complete sentences Cardio Jugular venous distension: no JVD Skin General skin exam: turgor normal Rashes: no rashes Neuro General: patient oriented x3 Extrem Other: Evaluation of Right Upper Extremity: The patient is alert, oriented, and in no acute distress Neuro: Median, Ulnar, Radial nerves motor and sensory intact and sensation is normal to the tips of all digits today in clinic No thenar or intrinsic wasting Good APB muscle belly firing and good finger cross Vascular: Cap refill brisk ROM: He can make a fist and extend all his digits No locking or catching Skin: No lacerations or abrasions. General: No Ecchymosis. No Erythema or evidence of infection. Nerve Conduction Study: IMPRESSION: [id number] right ulnar neuropathy across cubital tunnel. Vanita Schuler MD 01/28/2024 Psych Appearance: grossly normal Affect: normal affect Attitude: cooperative Assessment & Plan Assessment & Plan (1) Cubital tunnel syndrome on right: Code(s): G56.21 - Lesion of ulnar nerve, right upper limb Category: Medical (2) Bilateral hip pain: Code(s): M25.551 - Pain in right hip; M25.552 - Pain in left hip Category: Medical Plan Assessment & Plan: 1. Right cubital tunnel syndrome, mild-moderate Symptoms intermittent, but daily, primarily in the mornings I educated him about this condition I discussed operative and non-operative treatment options The patient would like to proceed with surgery He would like to take time to consider surgery and to speak with his family concerning surgery, and will be in touch with our office. The risks and benefits of operative treatment were discussed with the patient and the patient wishes to proceed with surgery. These risks include, but are not limited to risk of damage to blood vessels, nerves, tendons, infection, recurrence, incomplete relief of preoperative symptoms, persistent pain, possible need for further surgery and the risks associated with regional blocks and anesthesia. The plan is to take the patient to the operating room sometime in the next few weeks for the following procedures: 1. Right cubital tunnel release, under general All of the preoperative paperwork including the consent was reviewed today. All the patient's questions were answered. The patient understands that they will be contacted by our secretary of state soon to schedule this procedure. He denies Diabetes, blood thinners, asthma, heart, lung, kidney issues 2. Bilateral hip pain Patient will make an appointment to be seen by Dr. Ness or one of the PA's Scribed for Kiara Carranza MD by Spenser Koehler lead medical technologist, on 04/07/24 at 2:50 PM, EST. Coding Level of Care Code New Pt Level 4 (93798) Diagnoses Cubital tunnel syndrome on right G56.21 Bilateral hip pain M25.551; M25.552
[2024-04-07 14:26] VITALS: BMI 29.3
== END 2024-04-07 15:09 | disposition home or self-care (01) ==
PROVIDERS: PCP Physician Assistant; Visit Provider Orthopaedic Surgery
DX: G56.21 Lesion of ulnar nerve, right upper limb (principal); M25.551 Pain in right hip; M25.552 Pain in left hip
CPT/HCPCS: 99204

== ENCOUNTER → 2024-04-07 13:48 | Outpatient (BNVA) | payer OTHER, SELFPAY | PROVIDERS: PCP Physician Assistant; Visit Provider Orthopaedic Surgery | DX: M65.322 Trigger finger, left index finger (principal); R20.2 Paresthesia of skin; G56.21 Lesion of ulnar nerve, right upper limb; M25.551 Pain in right hip; M25.552 Pain in left hip | CPT/HCPCS: 99202 ==

== ENCOUNTER 2024-04-27 14:54 | Outpatient (AMB) | payer OTHER, SELFPAY ==
--- NOTE | 2024-04-27 14:57 | A.OFFPC_ITS ---
Vital Signs 04/27/24 14:58 Height 5 ft 11 in Weight 211 lb 13.828 oz BMI 29.5 BP 130/8 L Blood Pressure Location Lt brachial Position Sitting Pulse 66 Pulse Source Pulse Oximeter Pulse Oximetry (%) 97 Oxygen Delivery Method Room Air Intake Visit Reasons: 3mth f/u Public Health Staff Nurse Required: No Accompanied by: Self / Same As Patient Allergies No Known Allergies [No Known Allergies*] Allergy (Verified 04/27/24 15:07) Medication List - Last Reconciled 04/27/24 by Roger Norris PA-C bupropion HCl SR 150 mg PO QAM 90 days chlorhexidine gluconate 0.12% (Periogard) 15 mL buccal DAILY diclofenac sodium 1% (Arthritis Pain (diclofenac)) 2 grams topical ONCE 30 days finasteride 5 mg PO DAILY 90 days fluticasone propionate 50 mcg/actuation 1 spray intranasal DAILY 30 days gabapentin 300 mg PO BID 30 days ibuprofen 600 mg PO Q8H PRN loratadine (Allergy Relief (loratadine)) 10 mg PO DAILY 90 days omeprazole 40 mg PO DAILY 30 days sertraline 50 mg PO DAILY 90 days tamsulosin 0.4 mg PO BEDTIME 90 days triamcinolone acetonide 0.1% 1 appl topical BID-TID Tobacco use date assessed: 01/15/24 Fall risk assessment: No Falls in past year Last assessed Fall Risk: 04/27/24 Dental Screening Dental Screen Date: 01/15/24 HPI 3mth f/u HPI Details Patient is a 64-year-old male here today for a follow-up visit Patient has a past medical history significant for hip osteoarthritis, bladder outlet obstruction, major depressive disorder./ Concern--> today wanted to know the results of his CT abdomen though radiologist has not read out yet. Does have elevated liver enzymes and occasionally has right upper quadrant abdominal pain .. Pancytopenia: Has a chronic history of pancytopenia and has been followed by Hematology. He does take iron supplementation .. Major depressive disorder: Continues on sertraline and Wellbutrin with good effect on his mood. .. BPH/ bladder outlet obstruction: Also does bladder out that obstruction due to BPH and continues on finasteride and tamsulosin. Elevated liver enzymes: Reviewed labs with patient and noted a slightly elevation in his LFTs. Of note patient does have a history of fatty liver disease. He denies any excessive alcohol intake, Tylenol use or supplement use. Will recheck liver enzymes in the next [address] of abdomen and pelvis in his awaiting radiology read out [facility] Medical History PVC (premature ventricular contraction) Hx of simple renal cyst Fatty liver HTN (hypertension) Blurred vision, bilateral Depression Anxiety Surgical History Hx of endoscopy History of colonoscopy Family History Father No problems noted. Mother History of cancer Respiratory failure Pulmonary fibrosis Social History Household Members: None Housing: Apartment Are you a primary critical care specialist to a significant other at home: No Do you presently have visiting nurse or other home services: No Alcohol intake: current Alcohol intake frequency: holidays/special occasions only Alcohol type: beer Patient Tobacco Use Status: Never used Tobacco e-Cigarette/Vaping Use: Never Used Second Hand Smoke Exposure: No service: No Current occupational status: disabled Current occupation: right handed Cognitive needs: No Hearing needs: No Vision needs: No Questionnaire Thrive Questionnaire Date Thrive assessed: 01/15/24 DEANNA-7 AMB Questionnaire DEANNA-7 Date DEANNA - 7 assessed: 01/15/24 Source: Developed by Drs. Jose R Grant, Renay Mukherjee, Juan Newton and colleagues, with an educational greta from [employer]. Review of Systems Const Denies headache(s) Eyes Denies loss of vision ENT Denies vertigo, Denies dizziness, Denies headache(s) and Denies sore throat Card Denies chest pain, Denies leg edema and Denies lightheadedness Resp Denies cough, Denies hemoptysis and Denies wheezing GI Reports abdominal pain, Denies melena, Reports constipation, Denies diarrhea and Denies vomiting Denies dysuria, Denies urinary frequency and Denies urinary urgency Musc Denies arthralgias, Denies joint swelling, Denies numbness and Denies tingling Neuro Denies Abnormal speech present, Denies behavioral changes, Denies vertigo, Denies dizziness, Denies headache(s), Denies loss of vision, Denies memory loss, Denies numbness and Denies tingling Psych Denies anxiety, Denies behavioral changes, Denies depression, Denies memory loss and Denies panic attacks Cody/Lymph Denies easy bleeding and Denies easy bruising Aller/Immun Denies wheezing Physical exam (Primary Care) Vital Signs: Last Vital Signs Pulse 66 04/27/24 14:58 BP 130/8 L 04/27/24 14:58 Pulse Ox 97 04/27/24 14:58 Oxygen Delivery Method Room Air 04/27/24 14:58 BMI result Body Mass Index 29.5 Tobacco/Smoking Status: Tobacco use Status Tobacco use date assessed 01/15/24 04/27/24 14:58 Patient Tobacco Use Status Never used Tobacco 04/27/24 14:58 e-Cigarette/Vaping Use Never Used 04/27/24 14:58 Thrive Assessment: Date of Thrive Assessment Date Thrive assessed 01/15/24 04/27/24 14:58 Const General: healthy appearing, no acute distress, alert and awake Nutritional Appearance: well nourished Orientation/consciousness: oriented to person, oriented to place and oriented to time HENMT Ears: TM's normal bilaterally General nose exam: Normal nasal mucous membranes and turbinates present Eyes Conjunctivae: conjunctivae normal Sclerae: sclerae normal Pupils: Equal, round and reactive pupils present Neck Neck: Yes no lymphadenopathy and Yes no JVD Thyroid: Thyroid normal Carotids: no bruits Resp Effort & Inspection: normal respiratory effort and not tachypneic Auscultation: no crackles, no rales, no rhonchi and no wheezes Cardio Rate: regular rate Rhythm: regular rhythm Heart sounds: no murmurs and normal S1 and S2 GI Palpation (GI): Soft to palpation, nontender, no hepatomegaly and no splenomegaly Auscultation: normal bowel sounds Skin General skin exam: no rashes or lesions noted and dry skin Neuro General: oriented to person, oriented to place and oriented to time Cranial nerves: Yes Equal, round and reactive pupils present Speech: No Abnormal speech present Gait exam (Neuro): Normal gait present Motor exam (neuro): no tremor noted Extrem Right upper extremity: full ROM Left upper extremity: full ROM Right lower extremity: full ROM; no edema Left lower extremity: full ROM; no edema Psych Mental Status: mental status grossly normal Speech and movement: Normal speech and movement present Affect: normal affect Attitude: cooperative Thought process: Normal thought process present Assessment and Plan Assessment & Plan (1) Pancytopenia: Code(s): D61.818 - Other pancytopenia Plan: As per HPI- followed by hematology and takes iron supplementation (2) Chronic GERD: Code(s): K21.9 - Gastro-esophageal reflux disease without esophagitis Plan: Return back to using omeprazole for his GERD symptoms. Again advised on with reducing gastric irritant foods and watching his diet and he does agree and un derstand. (3) Elevated LFTs: Code(s): R79.89 - Other specified abnormal findings of blood chemistry Plan: Noted an elevation in his LFTs. Does have history fatty liver disease which was seen on ultrasound 2021. Due to patient's intermittent constipation and abdominal pain We did get a CT of abdomen and pelvis and awaiting results at this time. 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 Has followed up with Orthopedics whom offered surgery though patient is holding off for now. He has been using a compressive sleeve which has been helpful. Orders: Orders Vitamin D 25-OH Total 04/27/24 D61.818 - Other pancytopenia IRON PROFILE 04/27/24 D50.9 - Iron deficiency anemia, unspecified, D61.818 - Other pancytopenia Vitamin B12 and Folate 04/27/24 D61.818 - Other pancytopenia, E53.8 - Deficiency of other specified B group vitamins Complete Blood Count no Diff 04/27/24 D61.818 - Other pancytopenia Prostate Specific Antigen Scr 04/27/24 R79.89 - Other specified abnormal findings of blood chemistry, Z12.5 - Encounter for screening for malignant neoplasm of prostate Coding Level of Care Code Est Pt Level 4 (44172) Diagnoses Pancytopenia D61.818 Chronic GERD K21.9 Elevated LFTs R79.89 Right hand paresthesia R20.2
[2024-04-27 14:58] VITALS: BP 130/8; PULSE 66; O2SAT 97; BMI 29.5
== END 2024-04-27 15:33 | disposition home or self-care (01) ==
PROVIDERS: PCP Physician Assistant; Visit Provider Physician Assistant
DX: D61.818 Other pancytopenia (principal); K21.9 Gastro-esophageal reflux disease without esophagitis; R79.89 Other specified abnormal findings of blood chemistry; R20.2 Paresthesia of skin
CPT/HCPCS: 99214

== ENCOUNTER 2024-05-14 13:23 | Outpatient (AMB) | payer OTHER, SELFPAY ==
--- NOTE | 2024-05-14 13:25 | MHC.OFFVIS ---
Intake Visit Reasons: New prob- B/L hip pain Intake Note: Davon is a 64 year old male who presents today for a new problem visit with complaints of bilateral hip pain. Right worse than left. Pt states the pain comes and goes especially when the weather is to hot or to cold. Allergies No Known Allergies [No Known Allergies*] Allergy (Verified 05/14/24 13:25) HPI HPI New prob- B/L hip pain: Details: is a 64 year old male who presents today for a new problem visit with complaints of bilateral hip pain. Right worse than left. Pt states the pain comes and goes especially when the weather is to hot or to cold. He describes pain in very the lateral aspect of bilateral hips. He denies injury. He recently had a CT scan and talked to his cousin in [place] who recommended meloxicam. [facility] Medical History PVC (premature ventricular contraction) Hx of simple renal cyst Fatty liver HTN (hypertension) Blurred vision, bilateral Depression Anxiety Surgical History Hx of endoscopy History of colonoscopy Family History Father No problems noted. Mother History of cancer Respiratory failure Pulmonary fibrosis Social History Household Members: None Housing: Apartment Are you a primary personal care service provider to a significant other at home: No Do you presently have visiting nurse or other home services: No Alcohol intake: current Alcohol intake frequency: holidays/special occasions only Alcohol type: beer Patient Tobacco Use Status: Never used Tobacco e-Cigarette/Vaping Use: Never Used Second Hand Smoke Exposure: No service: No Current occupational status: disabled Current occupation: right handed Cognitive needs: No Hearing needs: No Vision needs: No Physical Exam Extrem Other: Normal hip exam Results Reviewed Results Reviewed: I personally reviewed relevant radiographs. Are reviewed his CT scan which shows mild-moderate bilateral hip arthritis. Assessment & Plan Assessment & Plan (1) Bilateral hip joint arthritis: Code(s): M16.0 - Bilateral primary osteoarthritis of hip Category: Medical Plan: This is a 64-year-old gentleman with bilateral hip osteoarthritis. He is minimally symptomatic however and is taking ibuprofen but wants to take meloxicam. I wrote him a prescription for meloxicam and he can discontinue his ibuprofen. If she has any groin pain he can return to see me but at this point he has pain is minimal and his motion is excellent. Medications: New meloxicam 15 mg PO DAILY 30 tabs 0RF Coding Level of Care Code Est Pt Level 3 (65380) Diagnoses Bilateral hip joint arthritis M16.0
== END 2024-05-14 13:35 | disposition home or self-care (01) ==
PROVIDERS: PCP Physician Assistant; Visit Provider Orthopaedic Surgery
DX: M16.0 Bilateral primary osteoarthritis of hip (principal)
CPT/HCPCS: 99213

== ENCOUNTER → 2024-05-14 13:23 | Outpatient (BNVA) | payer OTHER, SELFPAY | PROVIDERS: PCP Physician Assistant; Visit Provider Orthopaedic Surgery | DX: M16.0 Bilateral primary osteoarthritis of hip (principal) | CPT/HCPCS: 99212 ==

== ENCOUNTER 2024-05-27 15:47 | Outpatient (AMB) | payer OTHER, SELFPAY ==
--- NOTE | 2024-05-27 16:05 | A.OFFVIS_ITS ---
Intake Visit Reasons: 6M f/u PVR Intake Note: Patient is Present for PVR Urology Med: Tamsulosin, Finasteride Antibiotic Allergy: None Blood Thinner: None Last PVR: 50 Todays PVR: 298 Recent PSA: 01/2024- 1.11 Allergies No Known Allergies [No Known Allergies*] Allergy (Verified 05/14/24 13:25) HPI Comments Details: Davon is a pleasant male. He is a patient of Dr. Flores. He is seen for the following urologic conditions - lower urinary tract symptoms Six-month follow-up PVR today [address] scan which shows 3 cm prostate nodule inserting into bladder. Had some concerns regarding bladder mucosa. Recommend cystoscopy Lower urinary tract symptoms Episode of urinary retention 03/23 Initiated alpha-jose luis Has noted retrograde ejaculation Addition finasteride Labs - 10/25 P 0.8, T 612 US left testicular microlithiasis and small varicocele Plan follow-up 6 months PFSH Medical History PVC (premature ventricular contraction) Hx of simple renal cyst Fatty liver HTN (hypertension) Blurred vision, bilateral Depression Anxiety Surgical History Hx of endoscopy History of colonoscopy Family History Father No problems noted. Mother History of cancer Respiratory failure Pulmonary fibrosis Social History Household Members: None Housing: Apartment Are you a primary health care facility administrator to a significant other at home: No Do you presently have visiting nurse or other home services: No Alcohol intake: current Alcohol intake frequency: holidays/special occasions only Alcohol type: beer Patient Tobacco Use Status: Never used Tobacco e-Cigarette/Vaping Use: Never Used Second Hand Smoke Exposure: No service: No Current occupational status: disabled Current occupation: right handed Cognitive needs: No Hearing needs: No Vision needs: No Review of Systems Const Denies chills and Denies fever(s) Card Reports no additional complaints and Denies syncope Resp Denies cough GI Denies abdominal pain and Denies heartburn Reports as per HPI and Denies change in libido Neuro Denies syncope Psych Denies change in libido Endo Denies change in libido Physical Exam Const General: cooperative, healthy appearing, comfortable and no acute distress Orientation/consciousness: patient oriented x3 HEENT Face and sinus: Yes normal facial exam Mouth: moist mucous membranes Neck Neck: Yes normal visual inspection, Yes full ROM and Yes trachea midline Chest Chest palpation & inspection: normal inspection of the chest Resp Effort & Inspection: normal respiratory effort, able to speak in complete sentences and no respiratory distress GI Inspection: Yes normal to inspection Back/Spine/Pelvis Cervical Spine: normal cervical lordosis Thoracic/Lumbar Spine: thoracic and lumbar spine normal to inspection Skin General skin exam: no rashes or lesions noted Neuro General: patient oriented x3, gait normal, tone normal and moves all extremities Extrem General: Yes normal to inspection and Yes capillary refill normal Office Procedures Post Void Residual Post Residual Void Post Void Residual (PVR): 298 [id number] Void Residual by ultrasound Assessment & Plan Assessment & Plan (1) Incomplete emptying of bladder due to benign prostatic hyperplasia: Code(s): N40.1 - Benign prostatic hyperplasia with lower urinary tract symptoms; R33.9 - Retention of urine, unspecified Category: Medical Plan Plan cystoscopy Orders: Orders AMB Post Void Residual by ultrasound 05/27/24 N40.1 - Benign prostatic hyperplasia with lower urinary tract symptoms, R33.9 - Retention of urine, unspecified Patient Instructions: Imaging studies, laboratory and physical exam results were discussed and reviewed in detail. No major barriers to patient understanding were identified. An opportunity to ask questions regarding the treatment plan was provided. All questions were answered. The patient expressed understanding and agreement with the above treatment plan. The patient is aware they should contact our office by phone for worsening of their current condition or the appearance of new urologic symptoms. Compliance is encouraged with any medications and followup testing that is ordered. It is a privilege to participate in the urologic care of your patient. If you have any questions or concerns regarding treatment for the above conditions, or other urologic issues, please do not hesitate to contact me. The office telephone contact is [phone]. This note is constructed using voice recognition software. While every effort has been made to ensure accuracy fishing reel assembler errors may have been included. Yours sincerely, Dr James Singh MD, [facility] - Urology Providers of Expert, Compassionate Care for the Genitourinary System Coding Level of Care Code Est Pt Level 3 (65578) Diagnoses Incomplete emptying of bladder due to benign prostatic hyperplasia N40.1; R33.9 CPT Codes Post Residual Void - PVR CPT Code: 89103-Rpbh Void Residual by ultrasound ([id number])
== END 2024-05-27 16:37 | disposition home or self-care (01) ==
PROVIDERS: PCP Physician Assistant; Visit Provider Urology
DX: N40.1 Benign prostatic hyperplasia with lower urinary tract symptoms (principal); R33.9 Retention of urine, unspecified
CPT/HCPCS: 99213

== ENCOUNTER → 2024-05-27 15:47 | Outpatient (BNVA) | payer OTHER, SELFPAY | PROVIDERS: PCP Physician Assistant; Visit Provider Urology | DX: N40.1 Benign prostatic hyperplasia with lower urinary tract symptoms (principal); R33.9 Retention of urine, unspecified | CPT/HCPCS: 51798; 99212 ==

== ENCOUNTER 2024-06-30 14:54 | Outpatient (AMB) | payer OTHER, SELFPAY ==
--- NOTE | 2024-06-30 14:58 | A.OFFVIS_ITS ---
Intake Visit Reasons: cysto(High PVR) Intake Note: Patient is present for Cystoscopy Urology Med: Finasteride, Tamsulosin Antibiotic Allergy: None Blood Thinner: None Last PVR:298ML Last PSA: 01/2024 PSA: 1.11 Uro-GHD Disposable Cystoscope LOT:[id number] EXP:10/03/2026 Allergies No Known Allergies [No Known Allergies*] Allergy (Verified 05/14/24 13:25) HPI Comments Details: Davon is a pleasant male. He is a patient of Dr. Flores. He is seen for the following urologic conditions - lower urinary tract symptoms Had recent CT scan which shows 3 cm prostate nodule inserting into bladder. Had some concerns regarding bladder mucosa. Cystoscopy today Shows protruding prostate Lower urinary tract symptoms Episode of urinary retention 03/23 Initiated alpha-jose luis Has noted retrograde ejaculation Addition finasteride Labs - 10/25 P 0.8, T 612 US left testicular microlithiasis and small varicocele Plan follow-up 6 months PFS Medical History PVC (premature ventricular contraction) Hx of simple renal cyst Fatty liver HTN (hypertension) Blurred vision, bilateral Depression Anxiety Surgical History Hx of endoscopy History of colonoscopy Family History Father No problems noted. Mother History of cancer Respiratory failure Pulmonary fibrosis Social History Household Members: None Housing: Apartment Are you a primary intensive care specialist to a significant other at home: No Do you presently have visiting nurse or other home services: No Alcohol intake: current Alcohol intake frequency: holidays/special occasions only Alcohol type: beer Patient Tobacco Use Status: Never used Tobacco e-Cigarette/Vaping Use: Never Used Second Hand Smoke Exposure: No service: No Current occupational status: disabled Current occupation: right handed Cognitive needs: No Hearing needs: No Vision needs: No Office Procedures Cystoscopy Consent Discussed risk and benefit or proposed procedure with the patient. Information consent for procedure given to the patient. Discussed technical aspects, risks, benefits and alternatives in full. Addressed all of the patient's questions and concerns regarding the procedure. The patient demonstrated knowledge and understanding. They wish to proceed with this procedure. Preparation The patient was prepped in the usual manner. A beveling machine operator was present and in the room. Genitalia was prepped with betadine solution in a sterile manner. Lidocaine Jelly 2% was placed into the urethra and 16Fr flexible Olympus cystoscope was inserted into the meatus after adequate lubrication. Cystoscopy performed using a disposable Urovue digital 16 Telugu cystoscope. Meatus circumcised Urethra anterior and posterior urethra normal Prostatic Urethra protrude went into bladder consistent with imaging Bladder examination with retroflexion of cystoscope Bladder Orifices normal shape and position Bladder Capacity median Trabeculations grade 1 Cellule Formation - Diverticulum Formation - Mucosal Erythema - Bladder Tumor - [id number] DISPOSABLE SCOPE URO-G FLEXIBLE SCOPE Procedure code (CPT) selection complete Office Meds lidocaine HCl 2 % mucosal jelly in applicator Performing Provider: James Singh MD Performing Location: [facility] [place] [facility] Administered by: Levi Russell RN on 06/30/24 15:20 Dose Route Admin Location Dispensed Lot Number Expiration Date NDC Educational Paraprofessional 10 mL intra-urethral 10 mL nitrofurantoin monohydrate/macrocrystals 100 mg capsule Performing Provider: James Singh MD Performing Location: [facility] [place] [facility] Administered by: Levi Russell RN on 06/30/24 15:20 Dose Route Admin Location Dispensed Lot Number Expiration Date NDC Educational Paraprofessional 100 mg PO 1 cap naproxen 500 mg tablet Performing Provider: James Singh MD Performing Location: [facility] [place] [facility] Administered by: Levi Russell RN on 06/30/24 15:20 Dose Route Admin Location Dispensed Lot Number Expiration Date NDC Educational Paraprofessional 500 mg PO 1 tab Results AMB Urinalysis, Automated UA Leukoctes 0 Donovan/uL Last Edit by RICHARD Tang on 06/30/24 15:13 UA Nitrite Negative Last Edit by RICHARD Tang on 06/30/24 15:13 UA Urobilinogen 0.2 mg/dL Last Edit by RICHARD Tang on 06/30/24 15:1 3 UA Protein 0 mg/dL Last Edit by RICHARD Tang on 06/30/24 15:13 UA pH 5.5 Last Edit by RICHARD Tang on 06/30/24 15:13 UA Blood 0 Jose/uL Last Edit by Sarah Nazario, RMA on 06/30/24 15:13 UA Specific [place] 1.020 Last Edit by Sarah Nazario, RMA on 06/30/24 15: 13 UA Ketone Negative Last Edit by Sarah Nazario, RMA on 06/30/24 15:13 UA Bilirubin 0 mg/dL Last Edit by Sarah Nazario, RMA on 06/30/24 15:13 UA Glucose 0 mg/dL Last Edit by Sarah Nazario, RMA on 06/30/24 15:13 Results Reviewed Results Reviewed: Laboratory Last Values Urine pH (Auto) 5.5 06/30/24 15:06 Specific [place] (Auto) 1.020 06/30/24 15:06 Urine Protein (Auto) 0 mg/dL 06/30/24 15:06 Glucose (UA)(Auto) 0 mg/dL 06/30/24 15:06 Urine Ketones (Auto) Negative 06/30/24 15:06 Urine Blood (Auto) 0 Jose/uL 06/30/24 15:06 Urine Nitrite (Auto) Negative 06/30/24 15:06 Urine Bilirubin (Auto) 0 mg/dL 06/30/24 15:06 Urine Urobilinogen (Auto) 0.2 mg/dL 06/30/24 15:06 Leukocyte Esterase (Auto) 0 Donovan/uL 06/30/24 15:06 Assessment & Plan Assessment & Plan (1) Urinary retention: Code(s): R33.9 - Retention of urine, unspecified Category: Medical (2) Bladder outlet obstruction: Code(s): N32.0 - Bladder-neck obstruction Category: Medical Plan Six-month PVR Orders: Orders AMB Cystoscopy 06/30/24 N40.1 - Benign prostatic hyperplasia with lower urinary tract symptoms, R33.9 - Retention of urine, unspecified AMB Urinalysis Automated 06/30/24 Z13.9 - Encounter for screening, unspecified Medications: Refilled finasteride 5 mg PO DAILY 90 tabs 1RF 90 days R33.9 - Retention of urine, unspecified, N40.1 - Benign prostatic hyperplasia with lower urinary tract symptoms, N13.8 - Other obstructive and reflux uropathy Patient Instructions: Imaging studies, laboratory and physical exam results were discussed and reviewed in detail. No major barriers to patient understanding were identified. An opportunity to ask questions regarding the treatment plan was provided. All questions were answered. The patient expressed understanding and agreement with the above treatment plan. The patient is aware they should contact our office by phone for worsening of their current condition or the appearance of new urologic symptoms. Compliance is encouraged with any medications and followup testing that is ordered. It is a privilege to participate in the urologic care of your patient. If you have any questions or concerns regarding treatment for the above conditions, or other urologic issues, please do not hesitate to contact me. The office telephone contact is [phone]. This note is constructed using voice recognition software. While every effort has been made to ensure accuracy channel cementer insole machine errors may have been included. Yours sincerely, Dr James Singh MD, [facility] - Urology Providers of Expert, Compassionate Care for the Genitourinary System Coding Level of Care Code Est Pt Level 3 (16703) Diagnoses Urinary retention R33.9 Bladder outlet obstruction N32.0 CPT Codes Cystoscopy - CPT: 82924-Ifafoocuzx ([id number])
== END 2024-06-30 16:10 | disposition home or self-care (01) ==
LOC: HO.HUSH 14:55
PROVIDERS: PCP Physician Assistant; Visit Provider Urology
DX: N40.1 Benign prostatic hyperplasia with lower urinary tract symptoms (principal); R33.9 Retention of urine, unspecified; Z13.9 Encounter for screening, unspecified
CPT/HCPCS: 52000

== ENCOUNTER → 2024-06-30 14:54 | Outpatient (BNVA) | payer OTHER, SELFPAY | PROVIDERS: PCP Physician Assistant; Visit Provider Urology | DX: N40.1 Benign prostatic hyperplasia with lower urinary tract symptoms (principal); N13.8 Other obstructive and reflux uropathy; R33.9 Retention of urine, unspecified ==

== ENCOUNTER 2024-12-29 15:04 | Outpatient (AMB) | payer OTHER, SELFPAY ==
--- NOTE | 2024-12-29 15:06 | MHC.OFFVIS ---
Intake Visit Reasons: cysto/ PVR Intake Note: Patient is present for Cystoscopy/PVR Urology Medication:TAMSULOSIN,FINASTERIDE Antibiotic Allergy:NONE Blood Thinner:NONE TODAY;S PVR:281ML'S Lot:[id number] Exp:01/08/27 Electrical Power Engineer Required: No Allergies No Known Allergies [No Known Allergies*] Allergy (Verified 12/29/24 15:08) HPI Comments Details: Davon is a pleasant male. He is a patient of Dr. Flores. He is seen for the following urologic conditions - lower urinary tract symptoms Six-month follow-up use of tamsulosin and finasteride Has only been using tamsulosin Restart finasteride Lower urinary tract symptoms Episode of urinary retention 03/23 Initiated alpha-jose luis Has noted retrograde ejaculation Addition finasteride Labs - 10/25 P 0.8, T 612 US left testicular microlithiasis and small varicocele Cystoscopy 06/25 protruding prostate Plan follow-up 6 months [facility] Medical History PVC (premature ventricular contraction) Hx of simple renal cyst Fatty liver HTN (hypertension) Blurred vision, bilateral Depression Anxiety Surgical History Hx of endoscopy History of colonoscopy Family History Father No problems noted. Mother History of cancer Respiratory failure Pulmonary fibrosis Social History Household Members: None Housing: Apartment Are you a primary skin care technician to a significant other at home: No Do you presently have visiting nurse or other home services: No Alcohol intake: current Alcohol intake frequency: holidays/special occasions only Alcohol type: beer Patient Tobacco Use Status: Never used Tobacco e-Cigarette/Vaping Use: Never Used Second Hand Smoke Exposure: No service: No Current occupational status: disabled Current occupation: right handed Cognitive needs: No Hearing needs: No Vision needs: No Review of Systems Const Denies chills and Denies fever(s) Card Reports no additional complaints and Denies syncope Resp Denies cough GI Denies abdominal pain and Denies heartburn Reports as per HPI and Denies change in libido Neuro Denies syncope Psych Denies change in libido Endo Denies change in libido Physical Exam Const General: cooperative, healthy appearing, comfortable and no acute distress Orientation/consciousness: patient oriented x3 HEENT Face and sinus: Yes normal facial exam Mouth: moist mucous membranes Neck Neck: Yes normal visual inspection, Yes full ROM and Yes trachea midline Chest Chest palpation & inspection: normal inspection of the chest Resp Effort & Inspection: normal respiratory effort, able to speak in complete sentences and no respiratory distress GI Inspection: Yes normal to inspection Back/Spine/Pelvis Cervical Spine: normal cervical lordosis Thoracic/Lumbar Spine: thoracic and lumbar spine normal to inspection Skin General skin exam: no rashes or lesions noted Neuro General: patient oriented x3, gait normal, tone normal and moves all extremities Extrem General: Yes normal to inspection and Yes capillary refill normal Office Procedures Post Void Residual Post Residual Void Post Void Residual (PVR): 281 [id number] Void Residual by ultrasound Assessment & Plan Assessment & Plan (1) Bladder outlet obstruction: Code(s): N32.0 - Bladder-neck obstruction Category: Medical (2) Incomplete emptying of bladder due to benign prostatic hyperplasia: Code(s): N40.1 - Benign prostatic hyperplasia with lower urinary tract symptoms; R33.9 - Retention of urine, unspecified Category: Medical Plan Six-month follow-up office PVR Orders: Orders AMB Urinalysis Automated Today Z13.9 - Encounter for screening, unspecified Patient Instructions: This note is constructed using voice recognition software. While every effort has been made to ensure accuracy bridge opener errors may have been included. Imaging studies, laboratory and physical exam results were discussed and reviewed in detail. No major barriers to patient understanding were identified. An opportunity to ask questions regarding the treatment plan was provided. All questions were answered. The patient expressed understanding and agreement with the above treatment plan. The patient is aware they should contact our office by phone for worsening of their current condition or the appearance of new urologic symptoms. Compliance is encouraged with any medications and followup testing that is ordered. It is a privilege to participate in the urologic care of your patient. If you have any questions or concerns regarding treatment for the above conditions, or other urologic issues, please do not hesitate to contact me. The office telephone contact is [phone]. Sincerely, Dr James Singh MD, [facility] - Urology Compassionate Specialist Care for the Genitourinary System Coding Level of Care Code Est Pt Level 3 (61117) Diagnoses Bladder outlet obstruction N32.0 Incomplete emptying of bladder due to benign prostatic hyperplasia N40.1; R33.9 CPT Codes Post Residual Void - PVR CPT Code: 91523-Hqln Void Residual by ultrasound ([id number])
== END 2024-12-29 15:46 | disposition home or self-care (01) ==
LOC: HO.HUSH 15:04
PROVIDERS: PCP Physician Assistant; Visit Provider Urology
DX: N32.0 Bladder-neck obstruction (principal); N40.1 Benign prostatic hyperplasia with lower urinary tract symptoms; R33.9 Retention of urine, unspecified; Z13.9 Encounter for screening, unspecified
CPT/HCPCS: 99213

== ENCOUNTER → 2024-12-29 15:04 | Outpatient (BNVA) | payer OTHER, SELFPAY | PROVIDERS: PCP Physician Assistant; Visit Provider Urology | DX: N40.1 Benign prostatic hyperplasia with lower urinary tract symptoms (principal); N32.0 Bladder-neck obstruction; R33.9 Retention of urine, unspecified | CPT/HCPCS: 51798; 81003; 99212 ==

== ENCOUNTER 2024-12-31 11:15 | Outpatient (REF) | payer OTHER, SELFPAY ==
[2024-12-31 13:08] LABS: MANUAL DIFF FLAG NO
--- OUTSIDE RECORDS SUMMARY | 2024-12-31 13:11 | XMS_ITS | Encounter Summary ---
Author Organization [employer] Address [address] [place] [address] Care Team Providers Care Garment Sewer Hand Name Role Phone Name, Nikhil VILLAREAL Primary Care Provider [phone] Encounter Details Date Type Department Care Team (Latest Contact Info) Description 12/31/2024 Travel Social History Tobacco Use Types Packs/Day Years Used Date Smoking Tobacco: Never Smokeless Tobacco: Never Housing Stability Answer Date Recorded What is your housing situation today? I have mark martinez 12/31/[address] you li ve. Do you have problems with any of the following? None of the above 12/31/2024 Food Insecurity Answer Date Recorded Within the past 12 months, y ou worried that your food would run out before you got money to buy more: Never True 12/31/2024 Within the past 12 months,th e food you bought just didn't last and you didn't have enough money to get more: Never True 09/2024 Transportation Answer Date Recorded In the past 12 months, has l ack of transportation kept you from medical appts, meetings, work or from getting things needed for daily living? No 12/31/2024 Utilities Answer Date Recorded In the past 12 months, has t he electric, gas, oil or water company threatened to shut off services in your home? No 12/31/2024 Internet Access Answer Date Recorded Internet Access Q1 Yes 12/31/2024 Internet Access Q2 Not on file 12/31/2024 Sex and Gender Information Value Date Recorded Sex Assigned at Male 07/02/2022 10:30 AM EDT Legal Sex Male 10:30 AM EDT Gender Identity Male 07/02/2022 10:30 AM EDT Sexual Orientation Straight 07/02/2022 10 :30 AM EDT documented as of this encounter Plan of Treatment Not on file documented as of this encounter Visit Diagnoses Not on filedocumented in this encounter Care Teams Garment Sewer Hand Relationship Specialty Start Date End Date Name, MD Nikhil [address] [place] [address] PCP - General Internal Medicine 12/31/24 documented as of this encounter
--- OUTSIDE RECORDS SUMMARY | 2024-12-31 13:13 | XMS_ITS | Encounter Summary ---
Author Organization [employer] [facility] Address [address] [place] [address] Care Team Providers Care Office Rental Clerk Name Role Phone Name, Nikhil VILLAREAL Primary Care Provider [phone] Encounter Details Date Type Department Care Team (Latest Contact Info) Description 07/20/2019 Abstract [facility] CONVERSIONS Dental, Provider, DDS Social History Tobacco Use Types Packs/Day Years Used Date Smoking Tobacco: Never Assessed Sex and Gender Information Value Date Recorded Sex Assigned at Male 07/02/2022 10:30 AM EDT Legal Sex Male 10:30 AM EDT Gender Identity Male 07/02/2022 10:30 AM EDT Sexual Orientation Straight 07/02/2022 10 :30 AM EDT documented as of this encounter Plan of Treatment Not on file documented as of this encounter Visit Diagnoses Not on filedocumented in this encounter Care Teams Office Rental Clerk Relationship Specialty Start Date End Date Name, MD Nikhil [address] [place] [id number] PCP - General Internal Medicine 12/31/24 documented as of this encounter
--- OUTSIDE RECORDS SUMMARY | 2024-12-31 13:14 | XMS_ITS | Encounter Summary ---
Author Organization [employer] Address [address] [place] [address] Care Team Providers Care Credit Risk Manager Name Role Phone Unavailable Primary Care Provider Unavailabl e Reason for Visit * Reason Onset Date Comments chartprep 12/29/2024 Encounter Details Date Type Department Care Team (Late st Contact Info) Description 12/29/2024 Telephone [facility] MEDICINE [address] [place] [address] Irene Rachel MA chartprep Social History Tobacco Use Types Packs/Day Years Used Date Smoking Tobacco: Never Smokeless Tobacco: Never Sex and Gender Information Value Date Recorded Sex Assigned at Male 07/02/2022 10:30 AM EDT Legal Sex Male 10:30 AM EDT Gender Identity Male 07/02/2022 10:30 AM EDT Sexual Orientation Straight 07/02/2022 10 :30 AM EDT documented as of this encounter Miscellaneous Notes * Telephone Encounter - Irene Rachel MA - 12/29/2024 10:19 AM EDT Chart Prep Labs: done Images: done Referrals: not applicable Vaccines due: Zoster,covid,PCV20,flu,Hep A,RSV,Hep B,Tdap Screenings: colonoscopy Overdue care gaps: SBIRT, SDOH, PHQ-9, DEANNA-7, Oral health screening, Disability screen, and Tobacco documented in this encounter Plan of Treatment Not on file documented as of this encounter Visit Diagnoses Not on filedocumented in this encounter
--- OUTSIDE RECORDS SUMMARY | 2024-12-31 13:15 | XMS_ITS | Data Portability ---
Author Organization [facility], , [facility] Address [address] [place] [address] Assessment Encounter Date Assessment Date Assessment LastModified by Organization Details LastModified Time 06/23/2013 06/23/2013 plantar fasciitis left foot, pes planovalgus deformity denaekine Not available 06/23/2013 16:00:13 Plan of Treatment Reminders Order Date Submit Date Provider Last Modified By Organization Details Last Modified Time Details Appointments None record ed. Lab None record ed. Referral None record ed. Procedures None record ed. Surgeries None record ed. Imaging None record ed. Medication Orders None record ed. Patient TargetsNo targets recorded. Patient Instructions Encounter Date Encounter Id Patient Instructions Last Modified By Organization Details Last Modified Time 06/23/2013 [id number] Dispensed prescription for updated custom orthotics. Patient to return if symptoms persist. denaekine Not available 06/23/2013 16:00:13 Reason for Referral None Reported. Medical Equipment None Reported. Allergies No known drug allergies Medications Name Sig Start Date Stop Date Status Note LastModified by Organization Details LastModified Time Prescription - New active Not Available Not Available Not Available Vitals None Recorded Social History None recorded. Functional Status None recorded. Mental Status None recorded. Family History Nothing Reported. Medical History No medical history recorded. Past Encounters Encounter ID Performer Location Encounter Start Date Encounter Closed Date Diagnosis/Indication Diagnosis SNOMED-CT Code Diagnosis ICD10 Code Diagnosis Note [id number] Yoan Crum DPM Podiatry, [address] [address] 06/23/2013 14:13:59 06/23/2013 15:37:18 Plantar fasciitis [id number] Congenital valgus deformity of foot [id number] Health Concerns Section Related Observation LastModified by Organization Detai ls LastModified Time None Recorded Concern Status LastModified by Organization Details LastModified Time None Recorded Advance Directives Directive None Recorded Payers Encounter Date Sequence Insurance Name Policy Number Policy Bruno Covered Member ID Bruno Member ID Guarantor Name 06/23/2013 2 MEDICAID-[place]: [facility] Davon Patel [id number] Davon Patel 06/23/2013 1 MEDICARE B[place] [employer] Davon Patel [id number] Davon Patel Notes Date Note Type Note Provider Name and Address Organization Details Recorded Time 06/23/2013 text/html HPI Patient presents to the office complaining of pain arches of his left foot. Patient states pain has been increasing over the past few months during weightbearing activity. Patient states he has been diagnosed in the past with plantar fasciitis/heel spur and has been prescribed oral anti-inflammatory medications and prescribed orthotics which she states helped. Patient states orthotics are now worn out.? Yoan Crum DPM [address] [place] [address], [place], [address], [facility] 06/23/2013 16:00:24
--- OUTSIDE RECORDS SUMMARY | 2024-12-31 13:16 | XMS_ITS | Encounter Summary ---
Author Organization [employer] [facility] Address [address] [place] [address] Care Team Providers Care Dental Hygienist Mobile Coordinator Name Role Phone Name, Nikhil VILLAREAL Primary Care Provider [phone] Reason for Visit * Reason Comments Med Refill Encounter Details Date Type Department Care Team ([facility] st Contact Info) Description 04/30/2023 Refill [facility] MEDICINE [address] [place] [address] Name, MD Nikhil [address] [place] [address] Social History Tobacco Use Types Packs/Day Years [...] on filedocumented in this encounter Care Teams Dental Hygienist Mobile Coordinator Relationship Specialty Start Date End Date Name, MD Nikhil [address] [place] [phone] PCP - General Internal Medicine 12/31/24 documented as of this encounter
--- OUTSIDE RECORDS SUMMARY | 2024-12-31 13:16 | XMS_ITS | Encounter Summary ---
Author Organization [employer] Address [address] [place] [address] Care Team Providers Care Salary Manager Name Role Phone Name, Nikhil VILLAREAL Primary Care Provider [phone] Reason for Visit * Reason Onset Date Comments New Patient 04/30/2024 Encounter Details Date Type Department Care Team ([facility] Contact Info) Description 04/30/2024 Telephone [facility] MEDICINE [address] [place], [place] [phone] Dank Rose MD [address] [place], [place] [phone] New Patient Social History Tobacco Use Types Packs/Day Years Used Date Smoking Tobacco: Never Smokeless Tobacco: Never Sex and Gender Information Value Date Recorded Sex Assigned at Male 07/02/2022 10:30 AM EDT Legal Sex Male 10:30 AM EDT Gender Identity Male 07/02/2022 10:30 AM EDT Sexual Orientation Straight 07/02/2022 10 :30 AM EDT documented as of this encounter Miscellaneous Notes * Telephone Encounter - Acacia Lawrence - 04/30/2024 10:17 AM EDT Patient added to [facility] New Patient wait list as 04/30/2024 * Telephone Encounter - Aakash Von - 04/30/2024 9:31 AM EDT TC from caller requesting NEW PATIENT visit . Medical Conditions: None stated Insurance name: CCA Location: [facility] Demographic information updated documented in this encounter Plan of Treatment Not on file documented as of this encounter Visit Diagnoses Not on filedocumented in this encounter Care Teams Salary Manager Relationship Specialty Start Date End Date Name, MD Nikhil [address] [place] [address] PCP - General Internal Medicine 12/31/24 documented as of this encounter
[2024-12-31 13:17] LABS: Basophils Percent Auto 0.2 % (0-2); Eosinophils Absolute Auto 0.1 X10*3/uL (0.0-0.4); Eosinophils Percent Auto 1.9 % (0-4); Hematocrit 39.4 % (42.0-52.0); Hemoglobin 13.4 g/dl (14.0-18.0); Imm Gran Abs Auto 0.01 X10*3/uL (0.00-0.03); Imm Gran Pct Auto 0.2 % (0.0-0.4); Lymphocytes Absolute Auto 1.2 X10*3/uL (1.2-4.9); Mean Corpuscular Hemoglobin 32.5 pg (27.0-33.0); Mean Corpuscular Volume 95.6 fL (80.0-98.0); Mean Platelet Volume 10.1 fL (9.4-12.4); Monocytes Absolute Auto 0.4 X10*3/uL (0.1-1.2); Monocytes Percent Auto 9.8 % (2-11); Neutrophils Absolute Auto 2.5 x10*3/uL (2.0-8.3); Neutrophils Percent Auto 58.9 % (45-73); Platelet Count 145 X10*3/uL (160-400); Red Blood Count 4.12 X10*6/uL (4.60-5.80); Red Cell Distribution Width 12.6 % (11.0-16.0); White Blood Count 4.2 X10*3/uL (4.8-10.8)
[2024-12-31 13:33] LABS: Alanine Aminotransferase 33 U/L (0-40); Albumin Level 4.4 g/dL (3.5-5.0); Alkaline Phosphatase 52 U/L (39-117); Anion Gap 11 (12-20); Aspartate Amino Transferase 31 U/L (5-37); Bilirubin Total 1.2 mg/dL (0.0-1.0); Blood Urea Nitrogen 16 mg/dL (9-16); Calcium 9.6 mg/dL (8.4-10.2); Carbon Dioxide 27 mmol/L (22-29); Chloride 107 mmol/L (96-108); Cholesterol 147 mg/dL (<200); Estimated Glomerular Filt Rate > 60; Glucose Random 107 mg/dL (60-115); HDL Cholesterol 43 mg/dL (>40); LDL Cholesterol Calculated 85 mg/dL (<100); Sodium 141 mmol/L (135-145); Total Protein 7.7 g/dL (6.5-8.0); Triglycerides 99 mg/dL (<150)
[2024-12-31 13:45] LABS: Prostate Specific Antigen 0.76 ng/mL (<0.05-4.0); Prostate Specific Antigen 0.87 ng/mL (<0.05-4.0)
[2024-12-31 13:59] LABS: HBS Num1 775.33 mIU/mL (0-7.99); HBsAGNum1 0.36 S/CO (0.00-0.99); HIV AB/AG Nonreactive (Nonreactive); HIV Num 1 0.05 S/CO (0.00-0.99); Hepatitis B Surface Antigen Negative (Negative); ~HepC Num1 0.34 S/CO (0.00-0.79); ~Hepatitis B Surface Antibody REACTIVE (Nonreactive); ~Hepatitis C Antibody Nonreactive (Nonreactive)
[2025-01-03 14:04] LABS: RPR Rapid Plasma Reagin NON-REACTIVE (NON-REACTIVE)
== END 2024-12-31 11:16 | disposition home or self-care (01) ==
LOC: HO.HHCL 11:15
PROVIDERS: Urology; Visit Provider Internal Medicine Geriatric Medicine
DX: N40.1 Benign prostatic hyperplasia with lower urinary tract symptoms (principal); N13.8 Other obstructive and reflux uropathy; N32.0 Bladder-neck obstruction; R33.9 Retention of urine, unspecified; Z13.220 Encounter for screening for lipoid disorders; Z11.3 Encounter for screening for infections with a predominantly sexual mode of transmission; Z12.5 Encounter for screening for malignant neoplasm of prostate
CPT/HCPCS: 36415; 80053; 80061; 84153; 85025; 86592; 86706; 86803; 87340; 87389

== ENCOUNTER 2025-01-01 14:41 | Outpatient (REF) | payer OTHER, SELFPAY ==
--- OUTSIDE RECORDS SUMMARY | 2025-01-01 14:45 | XMS_ITS | Encounter Summary ---
Author Organization [employer] [facility] Address [address] [place] [address] Care Team Providers Care Snubber Name Role Phone Name, Nikhil VILLAREAL Primary Care Provider [phone] Reason for Visit * Reason Comments Med Refill Encounter Details Date Type Department Care Team ([facility] st Contact Info) Description 04/30/2023 Refill [facility] MEDICINE [address] [place] [address] Name, MD Nikhil [address] [place] [address] Social History Tobacco Use Types Packs/Day Years [...] on filedocumented in this encounter Care Teams Snubber Relationship Specialty Start Date End Date Name, MD Nikhil [address] [place] [address] [phone] PCP - General Internal Medicine 12/31/24 documented as of this encounter
--- OUTSIDE RECORDS SUMMARY | 2025-01-01 14:45 | XMS_ITS | Encounter Summary ---
Author Organization [email or web address] Address [address] [place] [address] Care Team Providers Care Kitchen Work Supervisor Name Role Phone Unavailable Primary Care Provider Unavailabl e Reason for Visit * Reason Onset Date Comments chartprep 12/29/2024 Encounter Details Date Type Department Care Team (Late st Contact Info) Description 12/29/2024 Telephone [facility] MEDICINE [address] [place] [address] Irene Rachel MA chartprep Social History Tobacco [...]
--- OUTSIDE RECORDS SUMMARY | 2025-01-01 14:45 | XMS_ITS | Encounter Summary ---
Author Organization [employer] Address [address] [place] [address] Care Team Providers Care Sales Performance Manager Name Role Phone Name, Nikhil VILLAREAL Primary Care Provider [phone] Encounter Details Date Type Department Care Team [...] on filedocumented in this encounter Care Teams Sales Performance Manager Relationship Specialty Start Date End Date Name, MD Nikhil [address] [place] [address] PCP - General Internal Medicine 12/31/24 documented as of this encounter
--- OUTSIDE RECORDS SUMMARY | 2025-01-01 14:45 | XMS_ITS | Encounter Summary ---
Author Organization [email or web address] Address [address] [place] [address] Care Team Providers Care Veterinary Pharmacologist Name Role Phone Name, Nikhil VILLAREAL Primary Care Provider [phone] Reason for Visit * Reason Onset Date Comments New Patient 04/30/2024 Encounter Details Date Type Department Care Team ([facility] Contact Info) Description 04/30/2024 Telephone [facility] MEDICINE [address] [place], [place] [phone] Dank Rose MD [address] [place], [place] [phone] New Patient Social History Tobacco Use Types [...] 04/30/2024 10:17 AM EDT Patient added to [facility] New Patient wait list as 04/30/2024 * Telephone Encounter - Aakash Von - 04/30/2024 9:31 AM EDT TC from caller requesting NEW PATIENT visit . Medical Conditions: None stated Insurance name: CCA Location: [facility] Demographic information updated documented in this encounter Plan of Treatment Not on file documented as of this encounter Visit Diagnoses Not on filedocumented in this encounter Care Teams Veterinary Pharmacologist Relationship Specialty Start Date End Date Name, MD Nikhil [address] [place] [address] PCP - General Internal Medicine 12/31/24 documented as of this encounter
--- OUTSIDE RECORDS SUMMARY | 2025-01-01 14:45 | XMS_ITS | Clinical Summary ---
Author Organization [employer] Address [address] [place] [address] Care Team Providers Care Software Test Technician Name Role Phone Name, Nikhil VILLAREAL Primary Care Provider [phone] Allergies No known active allergies Medications sertraline (Zoloft) 50 MG tablet take 1 tablet by oral route every day 1 Active buPROPion XL (Wellbutrin XL) 150 MG 24 hr tablet take 1 tablet by oral route every day 1 Active finasteride (Proscar) 5 MG tablet Take 5 mg by mouth Once per day. 4 Active tamsulosin (Flomax) 0.4 MG 24 hr capsule Take 0.4 mg by mouth at bedtime. 5 Active meloxicam (Mobic) 15 MG tablet Take 1 tablet by mouth Once per day. 4 Active mometasone (Elocon) 0.1 % ointment Apply topically Once per day. 45 g 2 5 01/01/20 26 Active Active Problems Problem Noted Date Diagnosed Date Benign prostatic hyperplasia with lower urinary tract symptoms 12/31/2024 Depression 12/31/2024 Chronic bilateral low back pain with left-sided sciatica 12/31/2024 Encounters Date Type Department Care Team Description 12/31/2024 10:45 AM EDT Office Visit [facility] [address], [place] [phone] Name, MD Nikhil Benign prostatic hyperplasia with lower urinary tract symptoms, symptom details unspecified (Primary Dx); Depression, unspecified depression type; Chronic bilateral low back pain with left-sided sciatica; Screening for cholesterol level; Screening examination for STI; Eczema, unspecified type 12/31/2024 Orders Only GENERIC EXTERNAL DATA DEPARTMENT Provider, Generic External Data 12/31/2024 Travel 12/29/2024 Telephone [facility] [address] [place] [address] Irene Rachel MA chartprep 12/18/2024 Patient Outreach [facility] [address] [place], [place] [phone] Name, MD Nikhil Pre-visit Planning ([facility] unable to reach [facility] ) from Last 3 Months Social History Tobacco Use Types Packs/Day Years Used Date Smoking Tobacco: Never Smokeless Tobacco: Never Tobacco Cessation:Counseling Given: Not Answered Housing Stability Answer Date Recorded What is your housing situation today? I have markmena martinez 12/31/[address] you [...] Orientation Straight 07/02/2022 10 :30 AM EDT Last Filed Vital Signs Vital Sign Reading Time Taken Comments Blood Pressure 116/78 12/31/2024 10:43 AM EDT Pulse 71 12/31/2024 10:43 AM EDT Temperature 36.6 ??C (97.9 ??F) 12/31/2024 10:43 AM E DT Respiratory Rate 12 12/31/2024 10:43 AM EDT Oxygen Saturation 98% 12/31/2024 10:43 AM EDT Inhaled Oxygen Concentration - - Weight 91 kg (200 lb 9.6 oz) 12/31/2024 10:43 AM EDT Height 180.3 cm (5' 11 ) 12/31/2024 10:43 AM EDT Body Mass Index 27.98 12/31/2024 10:43 AM EDT Plan of Treatment Health Maintenance Due Date Last Done Comments CT Colonography 1959 Colonoscopy 1959 Colorectal Cancer Screening 1959 Depression Screening 1959 FIT DNA/Cologuard 1959 FIT 1959 FOBT 1959 Sigmoidoscopy 1959 DTaP/Tdap/Td Vaccines (1 - Tdap) 1978 Hepatitis A Vaccines (1 of 2 - Risk 2-dose series) 1978 Pneumococcal Vaccine: 50+ Years (1 of 1 - PCV) 2009 Zoster Vaccines (1 of 2) 2009 Hepatitis B Vaccines (3 of 3 - Risk 3-dose series) 08/12/2018 03/18/2018, 2018 RSV Patients and Patients Aged 60 years or older (1 - Risk 60-74 years 1-dose series) 2019 COVID-19 Vaccine (1 - 2023-2 5 season) 2024 Influenza Vaccine (#1) 2024 Alcohol/Substance Use Screening 12/31/2025 12/31/2024 SDOH Screening 12/31/2025 12/31/2024 Tobacco Screening 12/31/2025 12/31/2024 Lipid Panel 12/31/2029 12/31/2024, 10/27/2020, 04/06/2020 Hepatitis C Screening Completed 12/31/2024 , 05/23/2020, 04/06/2020 HIB Vaccines Aged Out No longer eligi ble based on patient's age to complete this topic HPV Vaccines Aged Out No longer eligi ble based on patient's age to complete this topic IPV Vaccines Aged Out No longer eligi ble based on patient's age to complete this topic Meningococcal Vaccine Aged Out No zack jossie eligible based on patient's age to complete this topic RSV under 20 months Aged Out No longe r eligible based on patient's age to complete this topic Rotavirus Vaccines Aged Out No longer eligible based on patient's age to complete this topic Procedures Procedure Name Priority Date/Time Associated Diagnosis Comments PSA, TOTAL Routine 12/31/2024 11:20 AM EDT HEPATITIS B SURFACE ANTIBODY, QUALITATIVE Routine 12/31/2024 11:20 AM EDT Screening examination for STI HEPATITIS B SURFACE ANTIGEN, EIA Routine 12/31/2024 11:20 AM EDT Screening examination for STI HEPATITIS C AB W/REFL TO HCV RNA, QN, PCR Routine 12/31/2024 11:20 AM EDT Screening examination for STI HIV 1/2 ANTIGEN/ANTIBODY, FOURTH GENERATION W/RFL Routine 12/31/2024 11:20 AM EDT Screening examination for STI LIPID PANEL, STANDARD Routine 12/31/2024 11:20 AM EDT Screening for cholesterol level PSA, TOTAL Routine 12/31/2024 11:20 AM EDT Benign prostatic hyperplasia with lower urinary tract symptoms, symptom details unspecified COMPREHENSIVE METABOLIC PANEL Routine 12/31/2024 11:20 AM EDT Benign prostatic hyperplasia with lower urinary tract symptoms, symptom details unspecified CBC WITH AUTO DIFFERENTIAL Routine 12/31/2024 11:20 AM EDT Benign prostatic hyperplasia with lower urinary tract symptoms, symptom details unspecified from Last 3 Months Results * (ABNORMAL) CBC auto differential (12/31/2024 11:20 AM EDT) White Blood Count 4.2(L) 4.8 - 10.8 X10*3/uL [facility] Red Blood Count 4.12(L) 4.60 - 5.80 X10*6/uL [facility] Hemoglobin 13.4(L) 14.0 - 18.0 g/dl [facility] Hematocrit 39.4(L) 42.0 - 52.0 % [facility] Mean Corpuscular Volume 95.6 80.0 - 98.0 fL [facility] Mean Corpuscular Hemoglobin 32.5 27.0 - 33.0 pg [facility] Mean Corpuscular HGB Conc 34.0 31.0 - 36.0 g/dl [facility] Red Cell Distribution Width 12.6 11.0 - 16.0 % [facility] Platelet Count 145(L) 160 - 400 X10*3/uL [facility] Mean Platelet Volume 10.1 9.4 - 12.4 fL [facility] Neutrophils Percent Auto 58.9 45 - 73 % [facility] Imm Gran Pct Auto 0.2 0.0 - 0.4 % [facility] Lymphocytes Percent Auto 29.0 20 - 40 % [facility] Monocytes Percent Auto 9.8 2 - 11 % [facility] Eosinophils Percent Auto 1.9 0 - 4 % [facility] Basophils Percent Auto 0.2 0 - 2 % [facility] NRBC Pct Auto 0.0 0.0 - 0.2 /100WBC [facility] Neutrophils Absolute Auto 2.5 2.0 - 8.3 x10*3/uL [facility] Imm Gran Abs Auto 0.01 0.00 - 0.03 X10*3/uL [facility] Lymphocytes Absolute Auto 1.2 1.2 - 4.9 X10*3/uL [facility] Monocytes Absolute Auto 0.4 0.1 - 1.2 X10*3/uL [facility] Eosinophils Absolute Auto 0.1 0.0 - 0.4 X10*3/uL [facility] Basophils Absolute Auto 0.0 0.0 - 0.2 X10*3/uL [facility] NRBC Abs Auto 0.000 0.0 - 0.012 X10*3/uL [facility] Blood Venous blood specimen / Unknown 12/31/2024 11:20 AM EDT 12/31/2024 1:05 PM EDT us Nikhil Blankenship MD LAB BLOOD ORDERABLES Final Resul t Performing Organization Address City/[facility]/ZIP Co de Phone Number [facility] [address] [place] [phone] * Hepatitis C Antibody with Reflex to HCV, RNA, Quantitative, Real-Time PCR (12/31/2024 11:20 AM EDT) Hepatitis C Antibody Nonreactive Nonreactive [facility] Comment:Antibodies to HCV no t detected; does not exclude early acuteHCV infection. Blood Venous blood specimen / Unknown 12/31/2024 11:20 AM EDT 12/31/2024 1:05 PM EDT us Nikhil Blankenship MD LAB BLOOD ORDERABLES Final Resul t Performing Organization Address City/[facility]/ZIP Co de Phone Number [facility] [address] [place] [phone] * Hepatitis B surface antigen, EIA (12/31/2024 11:20 AM EDT) Hepatitis B Surface Ag Negative Negative [facility] Blood Venous blood specimen / Unknown 12/31/2024 11:20 AM EDT 12/31/2024 1:05 PM EDT us Nikhil Blankenship MD LAB BLOOD ORDERABLES Final Resul t Performing Organization Address City/[facility] Co de Phone Number [facility] [address] [place] [phone] * HIV-1/2 Antigen and Antibodies, Fourth Generation, with Reflexes (12/31/2024 11:20 AM EDT) HIV AB/AG Nonreactive Nonreactive [facility] Comment:HIV-1 p24 Ag and/or HIV-1/HIV-2 Ab not detected.A test result that is nonreactive does not exclude thepossibility of exposure to or infection with HIV-1 and/orHIV-2. Nonreactive results in this assay for individualswith prior exposure to HIV-1 and/or HIV-2 may be due toantigen and antibody levels that are below the limit ofdetection of this assay.[facility] HIV Ag/Ab Combo assay result andsupplemental assay results should be interpreted inconjunction with the patient's clinical presentation,history and other laboratory results. If the results areinconsistent with clinical evidence, additional testing issuggested to confirm the result. Blood Venous blood specimen / Unknown 12/31/2024 11:20 AM EDT 12/31/2024 1:05 PM EDT us Nikhil Blankenship MD LAB BLOOD ORDERABLES Final Resul t Performing Organization Address [facility] Co de Phone Number [facility] [address] [place] [phone] * Hepatitis B Surface Antibody, Qualitative (12/31/2024 11:20 AM EDT) ~Hepatitis B Surface Antibody REACTIVE Nonreactive [facility] Comment:REACTIVE: > 11.99 mI U/mL Blood Venous blood specimen / Unknown 12/31/2024 11:20 AM EDT 12/31/2024 1:05 PM EDT us Nikhil Blankenship MD LAB BLOOD ORDERABLES Final Resul t Performing Organization Address [facility] Co de Phone Number [facility] [address] [place] [phone] * PSA,Total (12/31/2024 11:20 AM EDT) Only the most recent of2 resultswithin the time period is included. Prostate Specific Antigen 0.87 <0.05 - 4.0 ng/mL [facility] Comment:PSA methodology: Abb demi Alilinty i ChemiluminescentMicroparticle Immunoassay (CMIA) 12/31/2024 11:2 0 AM EDT 12/31/2024 1:05 PM EDT us Generic External Data Provider LAB BLOOD ORDERAB LES Final Result Performing Organization Address [facility]/ZIP Co de Phone Number [facility] [address] [place] [phone] * Lipid Panel, Standard (12/31/2024 11:20 AM EDT) Triglycerides 99 <150 mg/dL [facility] Comment:Desirable Triglyceri de: less than 150 mg/dLBorderline High Triglyceride 150-199 mg/dLHigh Triglyceride: 200-499 mg/dLVery High Triglyceride: greater than or equal to 5OO mg/dL Cholesterol 147 <200 mg/dL [facility] Comment:Desirable Cholestero l: less than 200 mg/dLBorderline High Cholesterol: 200-239 mg/dLHigh Cholesterol: greater than 239 mg/dL LDL Cholesterol Calculated 85 <100 mg/dL [facility] Comment:Desirable LDL: less than 100 mg/dLNear Optimal/Above Optimal LDL: 110- 129 mg/dLBorderline High LDL: 130-159 mg/dLHigh LDL: 160-189 mg/dLVery High LDL: greater than or equal to 190 mg/dL HDL Cholesterol 43 >40 mg/dL [facility] Comment:Desirable HDL: great er than 40 mg/dL Note: This HDL assay may give artificially low results in patients with liver disease. Blood Venous blood specimen / Unknown 12/31/2024 11:20 AM EDT 12/31/2024 1:05 PM EDT us Nikhil Blankenship MD LAB BLOOD ORDERABLES Final Resul t Performing Organization Address City/[facility]/ZIP Co de Phone Number [facility] [address] [place] [phone] * (ABNORMAL) Comprehensive Metabolic Panel (12/31/2024 11:20 AM EDT) Sodium 141 135 - 145 mmol/L [facility] Potassium 4.0 3.3 - 5.1 mmol/L [facility] Chloride 107 96 - 108 mmol/L [facility] Carbon Dioxide 27 22 - 29 mmol/L [facility] Anion Gap 11(L) 12 - 20 [facility] Urea Nitrogen (BUN) 16 9 - 16 mg/dL [facility] Creatinine, Serum 0.85 0.5 - 1.4 mg/dL [facility] Estimated Glomerular Filt Rate >60 [facility] Comment:Chronic Kidney Disea se: Estimated GFR < 60 mL/min/[id number] Kidney Disease: Estimated GFR < 15 mL/min/1.73m2 Glucose 107 60 - 115 mg/dL [facility] Calcium 9.6 8.4 - 10.2 mg/dL [facility] Bilirubin, Total 1.2(H) 0.0 - 1.0 mg/dL [facility] Aspartate Amino Transferase 31 5 - 37 U/L [facility] Alanine Aminotransferase 33 0 - 40 U/L [facility] Total Protein 7.7 6.5 - 8.0 g/dL [facility] Albumin Level 4.4 3.5 - 5.0 g/dL [facility] Alkaline Phosphatase 52 39 - 117 U/L [facility] Blood Venous blood specimen / Unknown 12/31/2024 11:20 AM EDT 12/31/2024 1:05 PM EDT us Nikhil Blankenship MD LAB BLOOD ORDERABLES Final Resul t [facility] [address], [place] [phone] from Last 3 Months Insurance [employer] (HMO D-SNP) [place] [id number] Care Teams Software Test Technician Relationship Specialty Start Date End Date Name, MD Nikhil [address] [place] [phone] PCP - General Internal Medicine 12/31/24
--- OUTSIDE RECORDS SUMMARY | 2025-01-01 14:45 | XMS_ITS | Encounter Summary ---
Author Organization [employer] Address [address] [place] [address] Care Team Providers Care Range Aide Name Role Phone Name, Nikhil VILLAREAL Primary Care Provider [phone] Reason for Visit * Reason Comments New patient visit Encounter Details Date Type Department Care Team ([facility] Contact Info) Description 12/31/2024 10:45 AM EDT Office Visit [facility] [address] [place], [place] [id number] Name, MD Nikhil [address] [place] [address] Benign prostatic hyperplasia with lower urinary tract symptoms, symptom details unspecified (Primary Dx); Depression, unspecified depression type; Chronic bilateral low back pain with left-sided sciatica; Screening for cholesterol level; Screening examination for STI; Eczema, unspecified type Social History Tobacco Use Types Packs/Day Years [...] AM EDT documented as of this encounter Last Filed Vital Signs Vital Sign Reading [...] Mass Index 27.98 12/31/2024 10:43 AM EDT documented in this encounter Progress Notes * Nikhil Blankenship, - 12/31/2024 10:45 AM EDT Subjective Patient ID: Davon Patel is a 64 y.o. male who presents for New patient visit. The patient is returning to medical care. I used to see him years ago. He switched medical care to primary care practice in [facility] and now is coming back. He has a personal history of depression, anxiety, BPH with lower urinary tract symptoms, chronic low back pain. The patient has a prescribing psychiatric provider. He is not suicidal. He follows with urology and is prescribed Flomax and finasteride but he continues to have difficulties urinating. He has to strain to urinate, he has sensation of incomplete voiding. His urologist has suggested surgical intervention for the prostate but he is reluctant. He uses NSAIDs often to treat low back pain with radiation to the left leg. He does not have any weakness. He sometimes also uses gabapentin for the low back pain. He also complains of recurrent problems with eczema on the skin of the left lower leg. He requested to check STI testing but is not sexually active at the moment. Review of Systems Constitutional: Negative for chills, fatigue and fever. HENT: Negative for sore throat. Respiratory: Negative for cough, chest tightness and shortness of breath. Cardiovascular: Negative for chest pain, palpitations and leg swelling. Gastrointestinal: Negative for abdominal pain and blood in stool. Genitourinary: See HPI Psychiatric/Behavioral: The patient is nervous/anxious. Visit Vitals BP 116/78 (BP Location: Left arm, Patient Position: Sitting, BP Cuff Size: Adult) Pulse 71 Temp 97.9 ??F (36.6 ??C) (Temporal) Resp 12 Ht 5' 11 (1.803 m) Wt 200 lb 9.6 oz (91 kg) SpO2 98% BMI 27.98 kg/m?? Smoking Status Never BSA 2.13 m?? Objective Physical Exam Constitutional: Appearance: Normal appearance. Cardiovascular: Rate and Rhythm: Normal rate and regular rhythm. Heart sounds: No murmur heard. Pulmonary: Effort: Pulmonary effort is normal. No respiratory distress. Breath sounds: No wheezing, rhonchi or rales. Abdominal: Palpations: Abdomen is soft. Tenderness: There is no abdominal tenderness. Musculoskeletal: Right lower leg: No edema. Left lower leg: No edema. Neurological: Mental Status: He is alert. Assessment/Plan Diagnoses and all orders for this visit: Benign prostatic hyperplasia with lower urinary tract symptoms, symptom details unspecified Comments: Continue Flomax and finasteride. Check PSA and UA. Keep upcoming appointment with urology. Orders: - CBC auto differential; Future - Comprehensive Metabolic Panel; Future - Urinalysis, Complete, with Reflex to Culture; Future - PSA,Total; Future Depression, unspecified depression type Comments: Continue psychiatric medications prescribed elsewhere. Chronic bilateral low back pain with left-sided sciatica Comments: The patient uses Mobic regularly. I will check a CBC and CMP. Screening for cholesterol level Comments: Check fasting lipids Orders: - Lipid Panel, Standard; Future Screening examination for STI Comments: Check STI testing at his request Orders: - HIV-1/2 Antigen and Antibodies, Fourth Generation, with Reflexes; Future - RPR (Monitor) with Reflex to Titer; Future - Hepatitis C Antibody with Reflex to HCV, RNA, Quantitative, Real-Time PCR; Future - Hepatitis B surface antigen, EIA; Future - Hepatitis B Surface Antibody, Qualitative; Future - Chlamydia/N. Gonorrhoeae RNA, TMA, Urogenitial Eczema, unspecified type Comments: Patient has eczema on the left lower leg. I recommended topical steroid. Other orders - mometasone (Elocon) 0.1 % ointment; Apply topically Once per day. documented in this encounter Plan of Treatment Scheduled Orders Name Type Priority Associated Diagnoses Orde r Schedule Urinalysis, Complete, with Reflex to Culture Lab Routine Benign prostatic hyperplasia with lower urinary tract symptoms, symptom details unspecified Expected: 12/31/2024 (Approximate), Expires: 12/31/2025 RPR (Monitor) with Reflex to??Titer Lab Routine Screening examination for STI Expected: 12/31/2024, Expires: 12/31/2025 Chlamydia/N. Gonorrhoeae RNA, TMA, Urogenitial Microbiology Routine Screening examination for STI Ordered: 12/31/2024 documented as of this encounter Procedures Procedure Name Priority Date/Time Associated Diagnosis Comments CBC WITH AUTO DIFFERENTIAL Routine 12/31/2024 11:20 AM EDT Benign prostatic hyperplasia with lower urinary tract symptoms, symptom details unspecified HEPATITIS C AB W/REFL TO HCV RNA, QN, PCR Routine 12/31/2024 11:20 AM EDT Screening examination for STI HEPATITIS B SURFACE ANTIGEN, EIA Routine 12/31/2024 11:20 AM EDT Screening examination for STI HIV 1/2 ANTIGEN/ANTIBODY, FOURTH GENERATION W/RFL Routine 12/31/2024 11:20 AM EDT Screening examination for STI HEPATITIS B SURFACE ANTIBODY, QUALITATIVE Routine 12/31/2024 11:20 AM EDT Screening examination for STI PSA, TOTAL Routine 12/31/2024 11:20 AM EDT Benign prostatic hyperplasia with lower urinary tract symptoms, symptom details unspecified LIPID PANEL, STANDARD Routine 12/31/2024 11:20 AM EDT Screening for cholesterol level COMPREHENSIVE METABOLIC PANEL Routine 12/31/2024 11:20 AM EDT Benign prostatic hyperplasia with lower urinary tract symptoms, symptom details unspecified documented in this encounter Results * Hepatitis B Surface Antibody, Qualitative (12/31/2024 11:20 AM EDT) ~Hepatitis B Surface Antibody REACTIVE Nonreactive [facility] Comment:REACTIVE: > 11.99 mI U/mL Blood Venous blood specimen / Unknown 12/31/2024 11:20 AM EDT 12/31/2024 1:05 PM EDT us Nikhil Blankenship MD LAB BLOOD ORDERABLES Final Resul t Performing Organization Address [facility] [[email or web address]] Co de Phone Number [facility] [address] [place] [phone] * Hepatitis B surface antigen, EIA (12/31/2024 11:20 AM EDT) [facility] Hepatitis B Surface Ag Negative Negative [facility] Blood Venous blood specimen / Unknown 12/31/2024 11:20 AM EDT 12/31/2024 1:05 PM EDT us Nikhil Blankenship MD LAB BLOOD ORDERABLES Final Resul t Performing Organization Address [facility] [[email or web address]] Co de Phone Number [facility] [address] [place] [phone] * Hepatitis C Antibody with Reflex to HCV, RNA, Quantitative, Real-Time PCR (12/31/2024 11:20 AM EDT) Pathologist [facility] Hepatitis C Antibody Nonreactive Nonreactive [facility] Comment:Antibodies to HCV no t detected; does not exclude early acuteHCV infection. Blood Venous blood specimen / Unknown 12/31/2024 11:20 AM EDT 12/31/2024 1:05 PM EDT us Nikhil Blankenship MD LAB BLOOD ORDERABLES Final Resul t Performing Organization Address [facility] [[email or web address]] Co de Phone Number [facility] [address] [place] [address] [phone] * HIV-1/2 Antigen and Antibodies, Fourth Generation, with Reflexes (12/31/2024 11:20 AM EDT) HIV AB/AG Nonreactive Nonreactive [facility] Comment:HIV-1 p24 Ag and/or HIV-1/HIV-2 Ab not detected.A test result that is nonreactive does not exclude thepossibility of exposure to or infection with HIV-1 and/orHIV-2. Nonreactive results in this assay for individualswith prior exposure to HIV-1 and/or HIV-2 may be due toantigen and antibody levels that are below the limit ofdetection of this assay.The [employer] HIV Ag/Ab Combo assay result andsupplemental assay results should be interpreted inconjunction with the patient's clinical presentation,history and other laboratory results. If the results areinconsistent with clinical evidence, additional testing issuggested to confirm the result. Blood Venous blood specimen / Unknown 12/31/2024 11:20 AM EDT 12/31/2024 1:05 PM EDT us Nikhil Blankenship MD LAB BLOOD ORDERABLES Final Resul t Performing Organization Address City/[facility]/ZIP Co de Phone Number [facility] [address] [place] [phone] * Lipid Panel, Standard (12/31/2024 11:20 AM EDT) Triglycerides 99 <150 mg/dL [facility] Comment:Desirable Triglyceri de: less than 150 mg/dLBorderline High Triglyceride 150-199 mg/dLHigh Triglyceride: 200-499 mg/dLVery High Triglyceride: greater than or equal to 5OO mg/dL Cholesterol 147 <200 mg/dL [facility] Comment:Desirable Cholestero l: less than 200 mg/dLBorderline High Cholesterol: 200-239 mg/dLHigh Cholesterol: greater than 239 mg/dL LDL Cholesterol Calculated 85 <100 mg/dL [facility] Comment:Desirable LDL: less than 100 mg/dLNear Optimal/Above Optimal LDL: 110- 129 mg/dLBorderline High LDL: 130-159 mg/dLHigh LDL: 160-189 mg/dLVery High LDL: greater than or equal to 190 mg/dL HDL Cholesterol 43 >40 mg/dL [facility] Comment:Desirable HDL: great er than 40 mg/dL Note: This HDL assay may give artificially low results in patients with liver disease. Blood Venous blood specimen / Unknown 12/31/2024 11:20 AM EDT 12/31/2024 1:05 PM EDT us Nikhil Blankenship MD LAB BLOOD ORDERABLES Final Resul t Performing Organization Address City/[facility] [[email or web address]] Co de Phone Number [facility] [address] [place] [phone] * PSA,Total (12/31/2024 11:20 AM EDT) Prostate Specific Antigen 0.76 <0.05 - 4.0 ng/mL [facility] Comment:PSA methodology: Ministerio Fairbanks i ChemiluminescentMicroparticle Immunoassay (CMIA) Blood Venous blood specimen / Unknown 12/31/2024 11:20 AM EDT 12/31/2024 1:05 PM EDT us Nikhil Blankenship MD LAB BLOOD ORDERABLES Final Resul t Performing Organization Address City/[facility] [[email or web address]] Co de Phone Number [facility] [address] [place] [phone] * (ABNORMAL) Comprehensive Metabolic Panel (12/31/2024 11:20 AM EDT) Sodium 141 135 - 145 mmol/L [facility] Potassium 4.0 3.3 - 5.1 mmol/L [facility] Chloride 107 96 - 108 mmol/L [facility] Carbon Dioxide 27 22 - 29 mmol/L [facility] Anion Gap 11(L) 12 - 20 [facility] Urea Nitrogen (BUN) 16 9 - 16 mg/dL [facility] Creatinine, Serum 0.85 0.5 - 1.4 mg/dL [facility] Estimated Glomerular Filt Rate >60 [facility] Comment:Chronic Kidney Disea se: Estimated GFR < 60 mL/min/1.22d3Sbfrzc Kidney Disease: Estimated GFR < 15 mL/min/1.73m2 Glucose 107 60 - 115 mg/dL [facility] Calcium 9.6 8.4 - 10.2 mg/dL [facility] Bilirubin, Total 1.2(H) 0.0 - 1.0 mg/dL [facility] Aspartate Amino Transferase 31 5 - 37 U/L [facility] Alanine Aminotransferase 33 0 - 40 U/L [facility] Total Protein 7.7 6.5 - 8.0 g/dL [facility] Albumin Level 4.4 3.5 - 5.0 g/dL [facility] Alkaline Phosphatase 52 39 - 117 U/L [facility] Blood Venous blood specimen / Unknown 12/31/2024 11:20 AM EDT 12/31/2024 1:05 PM EDT us Nikhil Name LAB BLOOD ORDERABLES Final Resul t [facility] [address] [place] [phone] * (ABNORMAL) CBC auto differential (12/31/2024 11:20 AM EDT) White Blood Count 4.2(L) 4.8 - 10.8 X10*3/uL [facility] Red Blood Count 4.12(L) 4.60 - 5.80 X10*6/uL [facility] Hemoglobin 13.4(L) 14.0 - 18.0 g/dl [facility] Hematocrit 39.4(L) 42.0 - 52.0 % [facility] Mean Corpuscular Volume 95.6 80.0 - 98.0 fL [facility] Mean Corpuscular Hemoglobin 32.5 27.0 - 33.0 pg [facility] Mean Corpuscular HGB Conc 34.0 31.0 - 36.0 g/dl [facility] Red Cell Distribution Width 12.6 11.0 - 16.0 % [facility] Platelet Count 145(L) 160 - 400 X10*3/uL [facility] Mean Platelet Volume 10.1 9.4 - 12.4 fL [facility] Neutrophils Percent Auto 58.9 45 - 73 % [facility] Imm Gran Pct Auto 0.2 0.0 - 0.4 % [facility] Lymphocytes Percent Auto 29.0 20 - 40 % [facility] Monocytes Percent Auto 9.8 2 - 11 % [facility] Eosinophils Percent Auto 1.9 0 - 4 % [facility] Basophils Percent Auto 0.2 0 - 2 % [facility] NRBC Pct Auto 0.0 0.0 - 0.2 /100WBC [facility] Neutrophils Absolute Auto 2.5 2.0 - 8.3 x10*3/uL [facility] Imm Gran Abs Auto 0.01 0.00 - 0.03 X10*3/uL [facility] Lymphocytes Absolute Auto 1.2 1.2 - 4.9 X10*3/uL [facility] Monocytes Absolute Auto 0.4 0.1 - 1.2 X10*3/uL [facility] Eosinophils Absolute Auto 0.1 0.0 - 0.4 X10*3/uL [facility] Basophils Absolute Auto 0.0 0.0 - 0.2 X10*3/uL [facility] NRBC Abs Auto 0.000 0.0 - 0.012 X10*3/uL [facility] Blood Venous blood specimen / Unknown 12/31/2024 11:20 AM EDT 12/31/2024 1:05 PM EDT us Nikhil Blankenship MD LAB BLOOD ORDERABLES Final Resul t [facility] [address] [place] [phone] documented in this encounter Visit Diagnoses Diagnosis Benign prostatic hyperplasia with lower urinary tract symptoms, symptom details unspecified- Primary Depression, unspecified depression type Chronic bilateral low back pain with left-sided sciatica Screening for cholesterol level Screening examination for STI Eczema, unspecified type documented in this encounter Care Teams Range Aide Relationship Specialty Start Date End Date Name, MD Nikhil [address] [place] [phone] PCP - General Internal Medicine 12/31/24 documented as of this encounter
--- OUTSIDE RECORDS SUMMARY | 2025-01-01 14:45 | XMS_ITS | Encounter Summary ---
Author Organization [employer] [facility] Address [address] [place] [address] Care Team Providers Care Supervisor Meter Shop Name Role Phone Name, Nikhil VILLAREAL Primary Care Provider [phone] Encounter Details Date Type Department Care Team (Latest Contact Info) Description 07/20/2019 Abstract [facility] Dental, Provider, DDS Social History [...] on filedocumented in this encounter Care Teams Supervisor Meter Shop Relationship Specialty Start Date End Date Name, MD Nikhil [address] [place] [phone] PCP - General Internal Medicine 12/31/24 documented as of this encounter
--- OUTSIDE RECORDS SUMMARY | 2025-01-01 14:45 | XMS_ITS | Encounter Summary ---
Author Organization [employer] Address [address] [place] [address] Care Team Providers Care Auto Refinisher Name Role Phone Name, Nikhil VILLAREAL Primary Care Provider [phone] Encounter Details Date Type Department Care Team ([facility] Contact Info) Description 12/31/2024 Orders Only GENERIC EXTERNAL DATA DEPARTMENT Provider, Generic External Data Social History Tobacco Use Types Packs/Day Years [...] on file documented as of this encounter Procedures Procedure Name Priority Date/Time Associated Diagnosis Comments PSA, TOTAL Routine 12/31/2024 11:20 AM EDT documented in this encounter Results * PSA,Total (12/31/2024 11:20 AM EDT) Prostate Specific Antigen 0.87 <0.05 - 4.0 ng/mL [facility] Comment:PSA methodology: Ministerio Fairbanks i ChemiluminescentMicroparticle Immunoassay (CMIA) 12/31/2024 11:2 0 AM EDT 12/31/2024 1:05 PM EDT us Generic External Data Provider LAB BLOOD ORDERAB LES Final Result Performing Organization Address [facility] Co de Phone Number [facility] [address] [place] [phone] documented in this encounter Visit Diagnoses Not on filedocumented in this encounter Care Teams Auto Refinisher Relationship Specialty Start Date End Date Name, MD Nikhil [address] [place] [phone] PCP - General Internal Medicine 12/31/24 documented as of this encounter
--- OUTSIDE RECORDS SUMMARY | 2025-01-01 14:45 | XMS_ITS | Encounter Summary ---
Author Organization [employer] [facility] Address [address] [place] [address] Care Team Providers Care Dry Cleaning Supervisor Name Role Phone Name, Nikhil VILLAREAL Primary Care Provider Encounter Details Date Type Department Care Team ([facility] Contact Info) Description 08/23/2022 Orders Only [facility] [address] [place] [address] Tomasa Lion LPN Social History Tobacco Use Types Packs/Day Years [...] on filedocumented in this encounter Care Teams Dry Cleaning Supervisor Relationship Specialty Start Date End Date Name, MD Nikhil [address] [place] [address] PCP - General Internal Medicine 12/31/24 documented as of this encounter
--- OUTSIDE RECORDS SUMMARY | 2025-01-01 14:45 | XMS_ITS | Data Portability ---
Author Organization [facility] Address [address] [place] [address] Assessment Encounter Date Assessment Date Assessment LastModified [...] By Organization Details Last Modified Time 06/23/2013 [id number] Dispensed prescription for updated custom orthotics. Patient [...] SNOMED-CT Code Diagnosis ICD10 Code Diagnosis Note [id number] Yoan Crum DPM Podiatry, [address] [phone] 06/23/2013 14:13:59 06/23/2013 15:37:18 Plantar fasciitis [id number] Congenital valgus deformity of foot [id number] Health Concerns Section Related Observation LastModified by Organization Detai ls LastModified Time None Recorded Concern Status LastModified by Organization Details LastModified Time None Recorded Advance Directives Directive None Recorded Payers Encounter Date Sequence Insurance Name Policy Number Policy Bruno Covered Member ID Bruno Member ID Guarantor Name 06/23/2013 2 [place] [facility] Davon Patel [id number] Davon Patel 06/23/2013 1 MEDICARE B-[place]: [employer] Davon Patel [id number] Davon Patel Notes Date Note Type Note [...] are now worn out.? Yoan Crum DPM [address] [place] [address], [place], [address], [facility] 06/23/2013 16:00:24
[2025-01-01 16:07] LABS: Appearance Urine Clear; Color Urine Yellow; Glucose Urine UA Negative (Negative); Leukocyte Esterase Urine Negative (Negative); Nitrite Urine Negative (Negative); PH 5.5 (5.0-9.0); Specific Gravity - Urine 1.015 (1.005-1.025); Urine Blood Negative (Negative); Urine Ketones Negative (Negative); Urine Protein Negative (Neg-Trace)
[2025-01-01 16:11] LABS: Bacteria Urine None Seen (None Seen); Hyaline Casts Urine 0-2 /LPF (0-2); RBC Urine 0-2 /HPF (0-2); Squamous Epithelial Cell Urine 0-2 /HPF (0-2); WBC Urine 0-5 /HPF (0-5)
[2025-01-02 16:07] LABS: CT PCR NOT DETECTED (Not Detect.); NG PCR NOT DETECTED (Not Detect.)
== END 2025-01-01 14:42 | disposition home or self-care (01) ==
LOC: HO.HHCL 14:41
PROVIDERS: Visit Provider Internal Medicine Geriatric Medicine
DX: Z20.2 Contact with and (suspected) exposure to infections with a predominantly sexual mode of transmission (principal); N40.1 Benign prostatic hyperplasia with lower urinary tract symptoms
CPT/HCPCS: 81001; 87491; 87591

== ENCOUNTER 2025-04-22 13:20 | Outpatient (REF) | payer OTHER, SELFPAY ==
--- OUTSIDE RECORDS SUMMARY | 2025-04-22 13:26 | XMS_ITS | Clinical Summary ---
Author Organization [facility] Address [address] [address] Phone Care Team Providers Care Headrig Sawyer Name Role Phone Pcp, Unknown Primary Care Provider Unavailabl e Allergies No known active allergies Medications buPROPion (WELLBUTRIN) 75 MG immediate release tablet 1 tablet Activ e garlic Cap Active zolpidem (AMBIEN) 10 mg tablet Active Social History Tobacco Use Types Packs/Day Years Used Date Smoking Tobacco: Never Smokeless Tobacco: Never Alcohol Use Standard Drinks/Week Comments No 0 (1 standard drink = 0.6 oz pur e alcohol) Education Answer Date Recorded Are you interested in more education? Not on jorge luis e 12/28/2022 Are you concerned about learning? Not on file 12/28/2022 No 12/28/2022 No 12/28/2022 Digital Access Answer Date Recorded No 01/26/2023 No 01/26/2023 Reliable internet access at home? Not on file 01/26/2023 Device with a working camera? Not on file Sex and Gender Information Value Date Recorded Sex Assigned at Male 10/25/2017 2:34 PM EST Legal Sex Male 9:50 PM EDT Gender Identity Male 10/25/2017 2:34 PM EST Sexual Orientation Straight 10/25/2017 2: 34 PM EST Last Filed Vital Signs Vital Sign Reading Time Taken Comments Blood Pressure 150/90 10/25/2017 7:17 PM EST Pulse 76 10/25/2017 7:17 PM EST Temperature 36.7 C (98 F) 10/25/2017 2:35 PM EST Respiratory Rate 16 10/25/2017 7:17 PM EST Oxygen Saturation 98% 10/25/2017 2:35 PM EST Inhaled Oxygen Concentration - - Weight 90.7 kg (200 lb) 10/25/2017 2:35 PM EST Height 180.3 cm (5' 11 ) 10/25/2017 2:35 PM EST Body Mass Index 27.89 10/25/2017 2:35 PM EST Plan of Treatment Health Maintenance Due Date Last Done Comments Adult Td,Tdap Booster 1959 DEPRESSION SCREENING 1971 COLOGUARD 02/11/2004 COLONOSCOPY 02/11/2004 COLORECTAL CANCER SCREENING 02/11/2004 FIT TEST 02/11/2004 FOBT 02/11/2004 SIGMOIDOSCOPY 02/11/2004 VIRTUAL COLONOSCOPY 02/11/2004 PNEUMOCOCCAL VACCINES (50+ y ears) (1 of 1 - PCV) 2009 ZOSTER VACCINES (1 of 2) 2009 LIPID PANEL 03/20/2018 03/20/2013 COVID-19 VACCINE ( - 2023-2 5 season) 2024 RSV VACCINE (1 - 1-dose 75+ series) 2034 HEPATITIS C SCREENING Completed 01/20/2016 SMOKING STATUS SCREENING (On ce After 26 Yrs) Completed 10/25/2017 HEPATITIS A VACCINES Aged Out No long er eligible based on patient's age to complete this topic HIB VACCINES Aged Out No longer eligi ble based on patient's age to complete this topic MENINGOCOCCAL VACCINES (ACWY) Aged Out No longer eligible based on patient's age to complete this topic MENINGOCOCCAL VACCINES (B) Aged Out N o longer eligible based on patient's age to complete this topic Medical Devices Not on file Insurance MEDICARE PART A & B [facility] MEDICARE PART A & B [facility]IC[facility] & [facility] B MEDICARE PART A & [address] [place] [address]HEALTH MEDICARE PART A & B [facility] MEDICARE PART A & B HEALTH MEDICARE PART A & B HEALTH Member Subscriber Plan / Payer ( fective 2017-Present) Name:Davon Patel Relation to Subscriber:Self Name:Davon Patel Payer ID:[id number] Group ID:Not on file Type:Medicaid Address: [address] [place] [address] MEDICARE PART A & B [facility] Care Teams Headrig Sawyer Relationship Specialty Start Date End Date Pcp, Unknown PCP - General 06/05/19 Additional Source Comments The information contained in this document represents components of the legal health record. It is not the complete legal health record.[facility]
--- OUTSIDE RECORDS SUMMARY | 2025-04-22 13:26 | XMS_ITS | Clinical Summary ---
Author Organization [employer] Address [address] [place] [address] Care Team Providers Care Design Analyst Name Role Phone Name, Nikhil VILLAREAL Primary Care Provider [phone] Allergies No known active allergies Medications sertraline [...] 45 g 2 5 01/01/20 26 Active fluticasone (Flonase) 50 MCG/ACT nasal spray Administer 2 sprays into each nostril Once per day. Shake gently. Before first use, prime pump. After use, clean tip and replace cap. 16 g 2 5 04/21/20 26 Active Active Problems Problem Noted Date Diagnosed Date Benign prostatic hyperplasia with lower urinary tract symptoms 12/31/2024 Depression 12/31/2024 Chronic bilateral low back pain with left-sided sciatica 12/31/2024 Encounters Date Type Department Care Team Description 04/21/2025 3:45 PM EDT Office Visit [facility] [address] [place] [address] Name, MD Nikhil Paresthesia of foot, bilateral (Primary Dx); Anemia, unspecified type; Encounter for screening for malignant neoplasm of colon; Renal cyst; Post-nasal drip 04/21/2025 Travel 04/20/2025 Telephone [facility] [address] [place] [address] Irene Rachel [place] CHARTPREP 04/20/2025 Travel from Last 3 Months Social History Tobacco Use Types Packs/Day Years Used Date Smoking Tobacco: Never Smokeless Tobacco: Never Tobacco Cessation:Counseling Given: Not Answered Depression Answer Date Recorded Patient Health Questionnaire-9 Score 8 04/21/2025 Patient Health Questionnaire-9 Score 8 04/21/2025 Last PHQ-9: Questionnaire Data Not on file 0 04/21/2025 Housing Stability Answer Date Recorded What is [...] off services in your home? No 12/31/2024 Depression Answer Date Recorded Patient Health Questionnaire-2 Score 2 04/21/2025 Internet Access Answer Date Recorded Internet Access [...] Sign Reading Time Taken Comments Blood Pressure 138/78 04/21/2025 3:35 PM EDT Pulse 68 04/21/2025 3:35 PM EDT Temperature 35.7 C (96.3 F) 04/21/2025 3:35 PM EDT Respiratory Rate 14 04/21/2025 3:35 PM EDT Oxygen Saturation 99% 04/21/2025 3:35 PM EDT Inhaled Oxygen Concentration - - Weight 95.6 kg (210 lb 12.8 oz) 04/21/2025 3:35 PM EDT Height 180.3 cm (5' 11 ) 04/21/2025 3:35 PM EDT Body Mass Index 29.4 04/21/2025 3:35 PM EDT Plan of Treatment Health Maintenance Due Date Last Done Comments CT Colonography 1959 Colonoscopy 1959 Colorectal Cancer Screening 1959 FIT DNA/Cologuard 1959 FIT 1959 FOBT 1959 Sigmoidoscopy 1959 DTaP/Tdap/Td Vaccines (1 - Tdap) 1978 Hepatitis A Vaccines (1 of 2 - Risk 2-dose series) 1978 Pneumococcal Vaccine: 50+ Years (1 of 1 - PCV) 2009 Zoster Vaccines (1 of 2) 2009 RSV Patients and Patients Aged 60 years or older (1 - Risk 60-74 years 1-dose series) 2019 COVID-19 Vaccine (1 - 2023-2 5 season) 2024 Influenza Vaccine (#1) 2025 Alcohol/Substance Use Screening 12/31/2025 12/31/2024 SDOH Screening 12/31/2025 12/31/2024 Depression Screening 04/21/2026 04/21/2025, 04/21/2025 Tobacco Screening 04/21/2026 04/21/2025 Lipid Panel 12/31/2029 12/31/2024, 10/27/2020, 04/06/2020 Hepatitis B Vaccines Discontinued 03/18/2018, 2018 Hepatitis C Screening Completed 12/31/2024 , 05/23/2020, 04/06/2020 HIB Vaccines Aged Out No longer eligi ble based on patient's age to complete this topic HPV Vaccines Aged Out No longer eligi ble based on patient's age to complete this topic IPV Vaccines Aged Out No longer eligi ble based on patient's age to complete this topic Meningococcal B Vaccine Aged Out No l onger eligible based on patient's age to complete [...] Procedure Name Priority Date/Time Associated Diagnosis Comments HEPATITIS C AB W/REFL TO HCV RNA, QN, PCR Routine 12/31/2024 11:20 AM EDT Screening examination for STI LIPID PANEL, STANDARD Routine 12/31/2024 11:20 AM EDT Screening for cholesterol level from Last 3 Months or Most Recently Relevant to Health Maintenance Results * Hepatitis C Antibody with Reflex to HCV, RNA, Quantitative, Real-Time PCR (12/31/2024 11:20 AM EDT) Hepatitis C Antibody Nonreactive Nonreactive [facility] Comment:Antibodies to HCV no t detected; does not exclude early acuteHCV infection. Blood Venous blood specimen / Unknown 12/31/2024 11:20 AM EDT 12/31/2024 1:05 PM EDT us Nikhil Name LAB BLOOD ORDERABLES Final Resul t [facility] [address] [place] [address] [phone] * Lipid Panel, Standard (12/31/2024 11:20 AM EDT) Triglycerides 99 <150 mg/dL [facility] Comment:Desirable Triglyceri de: less than 150 mg/dLBorderline High Triglyceride 150-199 mg/dLHigh Triglyceride: 200-499 mg/dLVery High Triglyceride: greater than or equal to 5OO mg/dL Cholesterol 147 <200 mg/dL [facility] Comment:Desirable Cholestero l: less than 200 mg/dLBorderline High Cholesterol: 200-239 mg/dLHigh Cholesterol: greater than 239 mg/dL LDL Cholesterol Calculated 85 <100 mg/dL [facility] Comment:Desirable LDL: less than 100 mg/dLNear Optimal/Above Optimal LDL: 110- 129 mg/dLBorderline High LDL: 130-159 mg/dLHigh LDL: 160-189 mg/dLVery High LDL: greater than or equal to 190 mg/dL HDL Cholesterol 43 >40 mg/dL [facility] Comment:Desirable HDL: great er than 40 mg/dL Note: This HDL assay may give artificially low results in patients with liver disease. Blood Venous blood specimen / Unknown 12/31/2024 11:20 AM EDT 12/31/2024 1:05 PM EDT us Nikhil Name LAB BLOOD ORDERABLES Final Resul t Performing Organization Address City/State/[facility] Co de Phone Number [facility] [address] [place] [phone] from Last 3 Months or Most Recently Relevant to Health Maintenance Insurance [facility] [employer] (O D-SNP) [place] [id number] Care Teams Design Analyst Relationship Specialty Start Date End Date Name, MD Nikhil [address] [place] [phone] PCP - General Internal Medicine 12/31/24
[2025-04-22 16:28] LABS: MANUAL DIFF FLAG NO
[2025-04-22 16:59] LABS: Hematocrit 39.2 % (42.0-52.0); Hemoglobin 13.7 g/dl (14.0-18.0); Imm Gran Abs Auto 0.01 X10*3/uL (0.00-0.03); Imm Gran Pct Auto 0.2 % (0.0-0.4); Lymphocytes Absolute Auto 1.3 X10*3/uL (1.2-4.9); Mean Corpuscular HGB Conc 34.9 g/dl (31.0-36.0); Mean Corpuscular Hemoglobin 32.5 pg (27.0-33.0); Mean Corpuscular Volume 92.9 fL (80.0-98.0); NRBC Abs Auto 0.000 X10*3/uL (0.0-0.012); NRBC Pct Auto 0.0 /100WBC (0.0-0.2); Platelet Count 149 X10*3/uL (160-400); Red Blood Count 4.22 X10*6/uL (4.60-5.80); White Blood Count 4.2 X10*3/uL (4.8-10.8)
[2025-04-22 17:19] LABS: Ferritin 65 ng/mL (20-250)
[2025-04-22 17:32] LABS: Folate 6.7 ng/mL (> or = 4.0); Vitamin B12 463 pg/mL (200-900)
[2025-04-22 17:33] LABS: Folate 7.3 ng/mL (> or = 4.0); Vitamin B12 429 pg/mL (200-900)
[2025-04-22 19:34] LABS: Alanine Aminotransferase 45 U/L (0-40); Albumin Level 4.6 g/dL (3.5-5.0); Alkaline Phosphatase 56 U/L (39-117); Anion Gap 13 (12-20); Aspartate Amino Transferase 43 U/L (5-37); Blood Urea Nitrogen 19 mg/dL (9-16); Calcium 9.4 mg/dL (8.4-10.2); Carbon Dioxide 25 mmol/L (22-29); Chloride 106 mmol/L (96-108); Estimated Glomerular Filt Rate > 60; Iron 89 mcg/dL (45-160); Percent Iron Saturation 27 % (15-50); Potassium 3.9 mmol/L (3.3-5.1); Sodium 140 mmol/L (135-145); Total Iron Binding Capacity 324 mcg/dL (228-428); Total Protein 7.6 g/dL (6.5-8.0); Unsaturated Iron Binding 235 ug/dL
== END 2025-04-22 13:21 | disposition home or self-care (01) ==
LOC: HO.HHCL 13:20
PROVIDERS: Internal Medicine Medical Oncology; Physician Assistant; PCP Internal Medicine Geriatric Medicine; Visit Provider Internal Medicine Geriatric Medicine
DX: Z01.84 Encounter for antibody response examination (principal); Z12.5 Encounter for screening for malignant neoplasm of prostate; E53.8 Deficiency of other specified B group vitamins; D50.9 Iron deficiency anemia, unspecified; D61.818 Other pancytopenia; R20.2 Paresthesia of skin; R79.89 Other specified abnormal findings of blood chemistry; Z13.21 Encounter for screening for nutritional disorder
CPT/HCPCS: 36415; 80053; 82306; 82607; 82728; 82746; 82784; 83540; 84153; 85025; 86334

== ENCOUNTER 2025-05-27 13:49 | Outpatient (AMB) | payer OTHER, SELFPAY ==
[2025-05-27 14:02] VITALS: BP 138/72; PULSE 51; BMI 29.5
--- NOTE | 2025-05-27 14:02 | A.OFFVIS_ITS ---
Vital Signs 05/27/25 14:02 Height 5 ft 11 in Weight 211 lb 3.245 oz BMI 29.5 BP 138/72 Blood Pressure Location Lt brachial Position Sitting Pulse 51 Intake Visit Reasons: EGD/Colonoscopy screening Intake Note: Davon presents to in office visit for colonoscopy and EGD consult. CC: Patient c/o constipation and heartburn sometimes. Java Developer Analyst Required: No Accompanied by: Self / Same As Patient Allergies No Known Allergies (No Known Allergies*) Allergy (Verified 05/27/25 14:10) HPI HPI EGD/Colonoscopy screening: Details: Assessment & Plan (1) Chronic GERD: ?Code(s): K21.9 - Gastro-esophageal reflux disease without esophagitis ?Plan: He is doing well with the 3 senna a day and has stopped the colace. He continues on the omeprazole qd. He has seen pain mgmt and went today for xrays.? I referred him there because of his groin pain that radiates down his legs. ROV 6 mos. (2) Chronic idiopathic constipation: ?Code(s): K59.04 - Chronic idiopathic constipation LABS: Laboratory Tests 04/22/25 13:34 WBC 4.2 L Hgb 13.7 L Hct 39.2 L MCV 92.9 MCH 32.5 Plt Count 149 L Estimated GFR > 60 Ferritin 65 Total Bilirubin 1.0 AST 43 H ALT 45 H Alkaline Phosphatase 56 PMX Pancytopenia BPH Allergic rhinitis Transaminitis Lumbar degenerative disc disease Osteoarthritis of the hip GERD Constipation History of tubulovillous adenoma Depression/anxiety * SURGICAL HISTORY Esophagogastroduodenoscopy-2011 [facility] Colonoscopy 2021, 2018, 2013 EGD 12/2022 Findings: Larynx:normal Esophagus: GE junction at 42 cm, diaphragm hiatus at 42 cm, mild bogginess and erythema at GEJ, bx taken also from distal and proximal esophagus, 7-9 mm esophgeal inlet patch noted. Stomach: Patchy gastric erythema. Biopsies were obtained. Grade 2 flap valve on retroflexed examination of the cardia. Duodenum: Normal bulb and descending duodenum, bx taken Intervention: Biopsies as noted above Impression/Findings: esophageal inlet patch gastritis esophagitis PLAN: reflux precautions can increase dose of omeprazole if needed if h pylori pos then treat if ongoing sx then GES, consider SIBO Received: 01/10/23 Diagnosis A. Small bowel, biopsy: Duodenal mucosa with preserved villi and no specific change. B. Stomach, biopsy: Gastric antral and body mucosa with mild reactive changes and mild chronic inactive gastritis; negative for H pylori, intestinal metaplasia and dysplasia. C. Gastroesophageal junction, biopsy: Columnar mucosa with mild chronic inactive inflammation; no squamous mucosa present; negative for intestinal metaplasia and dysplasia. D. Esophagus, distal, biopsy: Squamous mucosa with no specific change; no columnar mucosa present. E. Esophagus, proximal, biopsy: Squamous mucosa with no specific change; no columnar mucosa present. COLONOSCOPY 04/2022 Findings: Terminal Ileum-normal Cecum:normal Ascending Colon: x 3 sessile polyps 10-12 mm removed with cold snare. One polyp was close to a previously tattooed area. Transverse Colon -normal Descending Colon:normal Sigmoid Colon: mild diverticulosis, 8-10 mm sessile polyp removed with cold snare Rectum: Retroflexion with moderate sized internal hemorrhoids, grade I Anorectum - normal Impression and Post Procedure Diagnosis: polyps internal hemorrhoids diverticular disease Plan: High fiber diet leaflet Avoid straining at stool, epsom salts and sitz bath, anusol supps or cream Repeat Colonoscopy in 3 years due to hx of polyps or earlier if clinically indicated o/p EGD due to upper GI sx Received: 04/24/22 Diagnosis A. Colon, ascending, polypectomies: Fragments of tubular adenomata; negative for high-grade dysplasia or carcinoma. B. Colon, sigmoid, polypectomy: Tubular adenoma; negative for high-grade dysplasia or carcinoma TODAY'S VISIT Patient has been lost to follow-up since 01/2023 apparently has been referred today for a ?EGD/colonoscopy screening? however I explained to the patient that EGDs are not done for screening/preventative care and he has no current upper GI complaints.. PFSH Medical History PVC (premature ventricular contraction) Hx of simple renal cyst Fatty liver HTN (hypertension) Blurred vision, bilateral Depression Anxiety Surgical History Hx of endoscopy History of colonoscopy Family History Father No problems noted. Mother History of cancer Respiratory failure Pulmonary fibrosis Social History Household Members: None Housing: Apartment Are you a primary urgent care physician to a significant other at home: No Do you presently have visiting nurse or other home services: No Alcohol intake: current Alcohol intake frequency: holidays/special occasions only Alcohol type: beer Patient Tobacco Use Status: Never used Tobacco e-Cigarette/Vaping Use: Never Used Second Hand Smoke Exposure: No service: No Current occupational status: disabled Current occupation: right handed Cognitive needs: No Hearing needs: No Vision needs: No Review of Systems Const Denies fatigue, Denies fever(s), Denies night sweats, Denies poor appetite and Denies weight loss ENT Reports Normal hearing present, Denies dental pain, Denies dysphagia, Denies hearing loss, Denies mouth pain, Denies odynophagia, Denies throat swelling, Denies tongue swelling and Reports other (Dentition adequate) Card Reports no additional complaints Resp Reports no additional complaints GI Details: Denies abdominal pain, Denies melena, Denies bloating, Denies hematochezia, Reports constipation, Denies GI cramping, Denies dysphagia, Denies excessive flatus, Denies early satiety, Denies heartburn, Denies diarrhea, Denies nausea, Denies odynophagia, Denies vomiting and Denies hematemesis Skin/Breast Denies pruritus, Denies lesions, Denies rash and Denies jaundice Neuro Reports Normal hearing present and Denies Abnormal speech present Endo Denies fatigue Aller/Immun Denies throat swelling and Denies tongue swelling Physical Exam Vital Signs: BMI result Body Mass Index 29.5 Const General: cooperative, no acute distress, well developed and well groomed Nutritional Appearance: well nourished and obese Orientation/consciousness: oriented to person, oriented to place and oriented to time Limitations: No language barrier HEENT Head: Yes normocephalic and Yes atraumatic Eyes General: appearance normal, both eyes and all related structures Pupils: Equal, round and reactive pupils present Neck Neck: Yes normal visual inspection and Yes no lymphadenopathy Thyroid: Thyroid normal Resp Effort & Inspection: normal respiratory effort and able to speak in complete sentences Auscultation: clear to auscultation bilaterally Cardio Rate: regular rate Rhythm: regular rhythm Heart sounds: Normal, physiologic split S2 sound present Peripheral pulses: radial pulses present and posterior tibial pulses present GI Inspection: No distended and No Abdominal panniculus present Palpation (GI): Soft to palpation, nontender, no guarding, not rigid and No hepatosplenomegaly present Percussion: Yes normal to percussion Auscultation: normal bowel sounds Rectal Exam - Male: Yes deferred Skin General skin exam: no rashes or lesions noted, turgor normal, skin not dry, no jaundice, No spider nevi and no striae Rashes: no rashes Nails: normal Neuro General: oriented to person, oriented to place and oriented to time Cranial nerves: Yes Equal, round and reactive pupils present and Yes Normal hearing present Speech: No Abnormal speech present Extrem General: Yes normal to inspection, No clubbing, No cyanosis and No edema Psych Appearance: grossly normal and well kempt Mental Status: mental status grossly normal Speech and movement: Normal speech and movement present Affect: normal affect Attitude: cooperative Thought process: Normal thought process present and not confabulating Thought content: Normal thought content present Insight: Limited insight present (Psych) Judgement: Limited judgement present (Psych) Assessment & Plan Assessment & Plan (1) Tubulovillous adenoma of large intestine: Comment: 04/2022=2 TA repeat 3 years 05/2020 scope =TVA Code(s): D12.6 - Benign neoplasm of colon, unspecified Category: Medical Plan Patient has been lost to follow-up since 01/2023 apparently has been referred today for a ?EGD/colonoscopy screening? however I explained to the patient that EGDs are not done for screening/preventative care and he has no current upper GI complaints.. He had some large TA and a tubulovillous adenoma in 2022 which required a 3 year follow-up. He denies any bowel or upper GI problems except for occasional constipation that he treats with fiber tablets. There are no prior problems with anesthesia or sedation. He denies any cardiac or respiratory problems. There are no infectious disease problems. Orders: Referrals GI Procedure Notification D12.6 - Benign neoplasm of colon, unspecified Medications: New bisacodyl (Dulcolax (bisacodyl)) 10 mg (2 x 5 mg) PO BEDTIME 4 tabs 0RF 2 days peg 3350-electrolytes 236-22.74-6.74 -5.86 gram (Golytely) until fecal effluent is clear; do not exceed a total volume of 2,000 mL 240 mL PO Q10M 4,000 mL 0RF 1 day Z12.11 - Encounter for screening for malignant neoplasm of colon Coding Level of Care Code Est Pt Level 4 (59250) Diagnoses Tubulovillous adenoma of large intestine D12.6 Time Spent (min) 37
--- OUTSIDE RECORDS SUMMARY | 2025-05-27 18:21 | XMS_ITS | Clinical Summary ---
Author Organization Located Within [facility] Address [address] [address] Phone Care Team Providers Care Research Anthropologist Name Role Phone Pcp, Unknown Primary Care [...] of 2) 2009 LIPID PANEL 03/20/2018 03/20/2013 INFLUENZA VACCINE (#1) 2025 COVID-19 VACCINE (1 - 2023-2 5 season) 2025 RSV VACCINE (1 - 1-dose 75+ series) [...] file Insurance [facility]IC[facility] MEDICARE PART A & B MEDICARE PART A & B MEDICARE PART A & B HEALTH MEDICARE PART A & B HEALTH MEDICARE PART A & B HEALTH MEDICARE PART A & B Member Subscriber Plan / Payer ([facility] [employer] 06/18/2017-) Name:Davon Patel Relation to Subscriber:Self Name:Davon Patel Payer ID:[id number] Group ID:Not on file Type:Medicaid Address: [address] [id number] MEDICARE PART A & B [facility] Care Teams Research Anthropologist Relationship Specialty Start Date End Date Pcp, Unknown PCP - General 06/05/19 Additional Source Comments The information contained in this document represents components of the legal health record. It is not the complete legal health record.Located [facility]
--- OUTSIDE RECORDS SUMMARY | 2025-05-27 18:21 | XMS_ITS | Clinical Summary ---
Author Organization [employer] Address [address] [place] [address] Care Team Providers Care Purchasing Department Clerk Name Role Phone Name, Nikhil VILLAREAL Primary Care Provider [phone] Allergies No known active allergies Medications sertraline [...] Description 04/21/2025 3:45 PM EDT Office Visit [facility] [address] [place] [address] Name, MD Nikhil Paresthesia of foot, bilateral (Primary Dx); Anemia, unspecified type; Encounter for screening for malignant neoplasm of colon; Renal cyst; Post-nasal drip 04/21/2025 Travel 04/20/2025 Telephone [facility] [address] [place] [address] Irene Rachel MA CHARTPREP 04/20/2025 Travel from [...] COVID-19 Vaccine (1 - 2023-2 5 season) 2025 Influenza Vaccine (#1) 2025 Alcohol/Substance Use Screening [...] Procedure Name Priority Date/Time Associated Diagnosis Comments IMMUNOFIXATION, SERUM Routine 04/22/2025 1:34 PM EDT VITAMIN D,25-OH,TOTAL,IA Routine 04/22/2025 1:34 PM EDT IRON AND TOTAL IRON BINDING CAPACITY Routine 04/22/2025 1:34 PM EDT COMPREHENSIVE METABOLIC PANEL Routine 04/22/2025 1:34 PM EDT VITAMIN B12/FOLATE, SERUM PANEL Routine 04/22/2025 1:34 PM EDT PSA, SCREEN Routine 04/22/2025 1:34 PM EDT FERRITIN Routine 04/22/2025 1:34 PM EDT CBC WITH AUTO DIFFERENTIAL Routine 04/22/2025 1:34 PM EDT VITAMIN B12/FOLATE, SERUM PANEL Routine 04/22/2025 1:34 PM EDT Paresthesia of foot, bilateral HEPATITIS C AB W/REFL TO HCV RNA, QN, PCR Routine 12/31/2024 11:20 AM EDT Screening examination for STI LIPID PANEL, STANDARD Routine 12/31/2024 11:20 AM EDT Screening for cholesterol level from Last 3 Months or Most Recently Relevant to Health Maintenance Results * PSA, Screen (04/22/2025 1:34 PM EDT) PSA, Total 0.60 <0.05 - 4.0 ng/mL [facility] Comment:PSA methodology: Ministerio Fairbanks i ChemiluminescentMicroparticle Immunoassay (CMIA) 04/22/2025 1:34 PM EDT 04/22/2025 4:20 PM EDT us Generic External Data Provider LAB BLOOD ORDERAB LES Final Result [facility] [address] [place] [phone] * Vitamin D, 25-Hydroxy, Total, Immunoassay (04/22/2025 1:34 PM EDT) Vitamin D 25-OH Total 30.4 >30 ng/mL [facility] Comment: Health Based Reference Values*< 20 ng/mL [id number] ng/mL Insufficient> 30 ng/mL Sufficient*Adalid RECINOS. N Engl J Med. 2007;357:266-280There is no well-established upper level of normal vitamin Dlevels. Some laboratories use 50 ng/mL as an upper limit ofnormal. However, toxicity is patient-dependent and may occurat any level. Careful correlation with the patient'spresentation is necessary and, if there is concern forvitamin D toxicity, treatment should be consideredirrespective of the serum level.Care must be taken in interpreting Vitamin D results fromdifferent laboratories and methodologies. Published datademonstrated that results from patients undergoinghemodialysis may show a negative bias when tested withvarious automated 25-OH vitamin D assays when compared toLC-MS/MS.When testing samples from patients whose predominant form ofVitamin D is Vitamin D2, such as patients receiving VitaminD2 supplementation, results that are subtherapeutic shouldbe confirmed with another method such as LC-MS/MS. 04/22/2025 1:34 PM EDT 04/22/2025 4:20 PM EDT Generic External Data Provider LAB BLOOD ORDERAB LES Final Result Performing Organization Address [facility]/ZIP Co de Phone Number [facility] [address] [place] [phone] * Vitamin B12 (Cobalamin) and Folate Panel, Serum (04/22/2025 1:34 PM EDT) Only the most recent of2 resultswithin the time period is included. Pathologist [facility] Vitamin B12 463 200 - 900 pg/mL [facility] Comment:NORMAL 200-900 PG/ML INDETERMINATE 160-199 PG/ML DEFICIENT < 160 PG/ML Folate 6.7 > or = 4.0 ng/mL [facility] Comment:Reference Values:> o r = 4.0 ng/mL< 4.0 ng/mL suggests folate deficiency Methotrexate, aminopterin and folinic acid(leucovorin) are chemotherapeutic agents whose molecularstructures are similar to folate; therefore, the Architectfolate assay cannot be used for patients using these drugs. 04/22/2025 1:34 PM EDT 04/22/2025 4:20 PM EDT Generic External Data Provider LAB BLOOD ORDERAB LES Final Result Performing Organization Address [facility] Co de Phone Number [facility] [address] [place] [phone] * (ABNORMAL) CBC auto differential (04/22/2025 1:34 PM EDT) [facility] White Blood Count 4.2(L) 4.8 - 10.8 X10*3/uL [facility] Red Blood Count 4.22(L) 4.60 - 5.80 X10*6/uL [facility] Hemoglobin 13.7(L) 14.0 - 18.0 g/dl [facility] Hematocrit 39.2(L) 42.0 - 52.0 % [facility] Mean Corpuscular Volume 92.9 80.0 - 98.0 fL [facility] Mean Corpuscular Hemoglobin 32.5 27.0 - 33.0 pg [facility] Mean Corpuscular HGB Conc 34.9 31.0 - 36.0 g/dl [facility] Red Cell Distribution Width 12.5 11.0 - 16.0 % [facility] Platelet Count 149(L) 160 - 400 X10*3/uL [facility] Mean Platelet Volume 10.5 9.4 - 12.4 fL [facility] Neutrophils Percent Auto 57.8 45 - 73 % [facility] Imm Gran Pct Auto 0.2 0.0 - 0.4 % [facility] Lymphocytes Percent Auto 30.8 20 - 40 % [facility] Monocytes Percent Auto 9.6 2 - 11 % [facility] Eosinophils Percent Auto 1.4 0 - 4 % [facility] Basophils Percent Auto 0.2 0 - 2 % [facility] NRBC Pct Auto 0.0 0.0 - 0.2 /100WBC [facility] Neutrophils Absolute Auto 2.4 2.0 - 8.3 x10*3/uL [facility] Imm Gran Abs Auto 0.01 0.00 - 0.03 X10*3/uL [facility] Lymphocytes Absolute Auto 1.3 1.2 - 4.9 X10*3/uL [facility] Monocytes Absolute Auto 0.4 0.1 - 1.2 X10*3/uL [facility] Eosinophils Absolute Auto 0.1 0.0 - 0.4 X10*3/uL [facility] Basophils Absolute Auto 0.0 0.0 - 0.2 X10*3/uL [facility] NRBC Abs Auto 0.000 0.0 - 0.012 X10*3/uL [facility] 04/22/2025 1:34 PM EDT 04/22/2025 4:20 PM EDT us Generic External Data Provider LAB BLOOD ORDERAB LES Final Result [facility] [address] [place] [phone] * Iron And Total Iron Binding Capacity (04/22/2025 1:34 PM EDT) Iron 89 45 - 160 mcg/dL [facility] Total Iron Binding Capacity 324 228 - 428 mcg/dL [facility] Percent Iron Saturation 27 15 - 50 % [facility] Unsaturated Iron Binding 235 ug/dL [facility] 04/22/2025 1:34 PM EDT 04/22/2025 4:20 PM EDT Generic External Data Provider LAB BLOOD ORDERAB LES Final Result Performing Organization Address [facility]/ZIP Co de Phone Number [facility] [address] [place] [phone] * (ABNORMAL) Immunofixation, Serum (04/22/2025 1:34 PM EDT) Pathologist [facility] IMMUNOGLOBULIN G 1706(A) 600 - 1540 mg/dL [facility] IMMUNOGLOBULIN A 167 70 - 320 mg/dL [facility] Immunoglobulin M 158 50 - 300 mg/dL [facility] Comment:THIS TEST WAS PERFOR MED AT:[facility] [place] [phone] HEWITT MD Immunofixation Result [facility] Comment:No monoclonal protei ns detected. 04/22/2025 1:34 PM EDT 04/22/2025 4:20 PM EDT us Generic External Data Provider LAB BLOOD ORDERAB LES Final Result Performing Organization Address City/[facility]/ZIP Co de Phone Number [facility] [address] [place] [phone] * Ferritin (04/22/2025 1:34 PM EDT) Pathologist [facility] Ferritin 65 20 - 250 ng/mL [facility] 04/22/2025 1:34 PM EDT 04/22/2025 4:20 PM EDT us Generic External Data Provider LAB BLOOD ORDERAB LES Final Result Performing Organization Address [facility]/ZIP Co de Phone Number [facility] [address] [place] [phone] * (ABNORMAL) Comprehensive Metabolic Panel (04/22/2025 1:34 PM EDT) Sodium 140 135 - 145 mmol/L [facility] Potassium 3.9 3.3 - 5.1 mmol/L [facility] Chloride 106 96 - 108 mmol/L [facility] Carbon Dioxide 25 22 - 29 mmol/L [facility] Anion Gap 13 12 - 20 [facility] Urea Nitrogen (BUN) 19(H) 9 - 16 mg/dL [facility] Creatinine, Serum 0.96 0.5 - 1.4 mg/dL [facility] Estimated Glomerular Filt Rate >60 [facility] Comment:Chronic Kidney Disea se: Estimated GFR < 60 mL/min/1.09j5Puxbsu Kidney Disease: Estimated GFR < 15 mL/min/1.73m2 Glucose 103 60 - 115 mg/dL [facility] Calcium 9.4 8.4 - 10.2 mg/dL [facility] Bilirubin, Total 1.0 0.0 - 1.0 mg/dL [facility] Aspartate Amino Transferase 43(H) 5 - 37 U/L [facility] Alanine Aminotransferase 45(H) 0 - 40 U/L [facility] Total Protein 7.6 6.5 - 8.0 g/dL [facility] Albumin Level 4.6 3.5 - 5.0 g/dL [facility] Alkaline Phosphatase 56 39 - 117 U/L [facility] 04/22/2025 1:34 PM EDT 04/22/2025 4:20 PM EDT us Generic External Data Provider LAB BLOOD ORDERAB LES Final Result [facility] [address] [place] [phone] * Hepatitis C Antibody with Reflex to HCV, RNA, Quantitative, Real-Time PCR (12/31/2024 11:20 AM EDT) Hepatitis C Antibody Nonreactive Nonreactive [facility] Comment:Antibodies to HCV no t detected; does not exclude early acuteHCV infection. Blood Venous blood specimen / Unknown 12/31/2024 11:20 AM EDT 12/31/2024 1:05 PM EDT us Nikhil Blankenship MD LAB BLOOD ORDERABLES Final Resul t Performing Organization Address [facility] Co de Phone Number [facility] [address] [place] [phone] * Lipid Panel, Standard (12/31/2024 11:20 AM EDT) Triglycerides 99 <150 mg/dL [facility] Comment:Desirable Triglyceri de: less than 150 mg/dLBorderline High Triglyceride 150-199 mg/dLHigh Triglyceride: 200-499 mg/dLVery High Triglyceride: greater than or equal to 5OO mg/dL Cholesterol 147 <200 mg/dL [facility] Comment:Desirable Cholestero l: less than 200 mg/dLBorderline High Cholesterol: 200-239 mg/dLHigh Cholesterol: greater than 239 mg/dL LDL Cholesterol Calculated 85 <100 mg/dL [facility] Comment:Desirable LDL: less than 100 mg/dLNear Optimal/Above Optimal LDL: 110- 129 mg/dLBorderline High LDL: 130-159 mg/dLHigh LDL: 160-189 mg/dLVery High LDL: greater than or equal to 190 mg/dL HDL Cholesterol 43 >40 mg/dL [facility] Comment:Desirable HDL: great er than 40 mg/dL Note: This HDL assay may give artificially low results in patients with liver disease. Blood Venous blood specimen / Unknown 12/31/2024 11:20 AM EDT 12/31/2024 1:05 PM EDT us Nikhil Blankenship MD LAB BLOOD ORDERABLES Final Resul t [facility] [address] [place] [phone] from Last 3 Months or Most Recently Relevant to Health Maintenance Insurance [facility] OPT[employer] (HMO D-SNP) Care Teams Purchasing Department Clerk Relationship Specialty Start Date End Date Name, MD Nikhil [address] [place] [phone] PCP - General Internal Medicine 12/31/24
--- OUTSIDE RECORDS SUMMARY | 2025-05-27 18:21 | XMS_ITS | Encounter Summary ---
Author Organization [employer] Address [address] [place] [address] Care Team Providers Care Shoe Repairman Name Role Phone Name, Nikhil VILLAREAL Primary Care Provider [phone] Reason for Visit * Reason Onset Date Comments New Patient 04/30/2024 Encounter Details Date Type Department Care Team ([facility] st Contact Info) Description 04/30/2024 Telephone [facility] [address] [place], [place] [phone] Dank Rose MD [address] [place] [address] New Patient Social History Tobacco Use Types [...] 04/30/2024 10:17 AM EDT Patient added to [facility] New Patient wait list as 04/30/2024 * Telephone Encounter - Aakash Longoria - 04/30/2024 9:31 AM EDT TC from caller requesting NEW PATIENT visit . Medical Conditions: None stated Insurance name: CCA Location: [facility] Demographic information updated documented in this encounter Plan of Treatment Not on file documented as of this encounter Visit Diagnoses Not on filedocumented in this encounter Care Teams Shoe Repairman Relationship Specialty Start Date End Date Name, MD Nikhil [address] [place] [address] PCP - General Internal Medicine 12/31/24 documented as of this encounter
--- OUTSIDE RECORDS SUMMARY | 2025-05-27 18:21 | XMS_ITS | Encounter Summary ---
Author Organization [employer] Address [address] [place] [address] Care Team Providers Care Gift Officer Name Role Phone Name, Nikhil VILLAREAL Primary Care Provider [phone] Encounter Details Date Type Department Care Team ([facility] Contact Info) Description 08/23/2022 Orders Only [facility] [address] [place], [place] [phone] Tomasa Lion LPN Social History Tobacco Use [...] on filedocumented in this encounter Care Teams Gift Officer Relationship Specialty Start Date End Date Name, MD Nikhil [address] [place] [address] PCP - General Internal Medicine 12/31/24 documented as of this encounter
--- OUTSIDE RECORDS SUMMARY | 2025-05-27 18:21 | XMS_ITS | Encounter Summary ---
Author Organization [employer] Address [address] [place] [address] Care Team Providers Care Finishing Area Supervisor Name Role Phone Name, Nikhil VILLAREAL Primary Care Provider [phone] Encounter Details Date Type Department Care Team (Latest Contact Info) Description 07/20/2019 Abstract [facility] Dental, Provider, DDS Social History [...] on filedocumented in this encounter Care Teams Finishing Area Supervisor Relationship Specialty Start Date End Date Name, MD Nikhil [address] [place] [phone] PCP - General Internal Medicine 12/31/24 documented as of this encounter
--- OUTSIDE RECORDS SUMMARY | 2025-05-27 18:21 | XMS_ITS | Encounter Summary ---
Author Organization [facility] Address [address] [facility] 7[address] [place] [address] Care Team Providers Care Healthcare Recruiter Name Role Phone Name, Nikhil VILLAREAL Primary Care Provider [phone] Reason for Visit * Reason Comments Med Refill Encounter Details Date Type Department Care Team ([facility] st Contact Info) Description 04/30/2023 Refill [facility] [address] [place] [address] Name, MD Nikhil [address] [place] [address] Social History Tobacco Use Types Packs/Day Years [...] on filedocumented in this encounter Care Teams Healthcare Recruiter Relationship Specialty Start Date End Date Name, MD Nikhil [address] [place], [place] [phone] PCP - General Internal Medicine 12/31/24 documented as of this encounter
== END 2025-05-27 14:33 | disposition home or self-care (01) ==
LOC: HO.HGI 13:49
PROVIDERS: PCP Internal Medicine Geriatric Medicine; Visit Provider Nurse Practitioner
DX: D12.6 Benign neoplasm of colon, unspecified (principal)
CPT/HCPCS: 99214

== ENCOUNTER → 2025-05-27 13:49 | Outpatient (BNVA) | payer OTHER, SELFPAY | PROVIDERS: PCP Internal Medicine Geriatric Medicine; Visit Provider Nurse Practitioner | DX: K59.04 Chronic idiopathic constipation (principal); K21.9 Gastro-esophageal reflux disease without esophagitis; D12.6 Benign neoplasm of colon, unspecified | CPT/HCPCS: 99212 ==

== ENCOUNTER 2025-06-15 09:52 | Outpatient (REF) | payer OTHER, SELFPAY ==
--- NOTE | 2025-06-15 | EMG_ITS ---
Chief complaint: Numbness of legs and feet Reason for referral: R20.0 Paresthesia of bilateral feet Referred by: Nikhil Blankenship MD Procedure done: Bilateral lower extremity NCS/ EMG Bilateral tibial and peroneal motor studies were performed with F responses and tibial H reflexes. Bilateral superficial peroneal and sural sensory studies were performed an EMG needle examination was performed. Superficial peroneal sensory studies were absent and sural responses revealed moderately reduced conduction velocity. In motor studies, right peroneal motor amplitude was moderately reduced. 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
--- OUTSIDE RECORDS SUMMARY | 2025-06-15 11:12 | XMS_ITS | Clinical Summary ---
Author Organization [facility] Address [address] [address] Phone Care Team Providers Care Service Provider Name Role Phone Pcp, Unknown Primary Care [...] VACCINE (#1) 2025 COVID-19 VACCINE (1 - 2024-2 6 season) 2025 RSV VACCINE (1 - 1-dose [...] file Insurance [facility] MEDIC[facility] PART A & B MEDICARE PART A & B MEDICARE PART A & B HEALTH MEDICARE PART A & B HEALTH MEDICARE PART A & B HEALTH MEDICARE PART A & B MEDICARE PART A & B [facility] Care Teams Service Provider Relationship Specialty Start Date End Date Pcp, Unknown PCP - General 06/05/19 Additional Source Comments The information contained in this document represents components of the legal health record. It is not the complete legal health record.[facility]
== END 2025-06-15 09:53 | disposition home or self-care (01) ==
LOC: HO.NEURO 09:52
PROVIDERS: PCP Internal Medicine Geriatric Medicine; Visit Provider Internal Medicine Geriatric Medicine
DX: R20.0 Anesthesia of skin (principal)
CPT/HCPCS: 95886; 95911

== ENCOUNTER → 2025-06-15 09:56 | Outpatient (BNV) | payer OTHER, SELFPAY | PROVIDERS: PCP Internal Medicine Geriatric Medicine; Visit Provider Psychiatry & Neurology Neurology | DX: G62.89 Other specified polyneuropathies (principal) | CPT/HCPCS: 95886; 95911 ==

== ENCOUNTER 2025-06-24 14:27 | Outpatient (REF) | payer OTHER, SELFPAY ==
--- NOTE | ~2025-06-24 | US_ITS ---
EXAMINATION: US RETROPERITONEAL COMPLETE (RENAL) CLINICAL INFORMATION: Renal cysts. COMPARISON: Previous CT of the abdomen and pelvis April 2024 and abdominal ultrasound most recent September 2022 TECHNIQUE: Real-time imaging of the kidneys and bladder. FINDINGS: RIGHT KIDNEY: 10.9 x 4.6 x 5.9 cm (SAG x AP x TRV). The kidney is normal in size, contour, and echogenicity. Renal cortical thickness is normal. No calculi or focal parenchymal lesions. No hydronephrosis. LEFT KIDNEY: 10.7 x 6.2 x 5.1 cm (SAG x AP x TRV). The kidney is normal in size, contour, and echogenicity. Renal cortical thickness is normal. No calculi or focal parenchymal lesions. Mild hydronephrosis. BLADDER: 2.5 x 2.5 x 2.8 cm soft tissue mass at the trigone. This is continuous with the prostate gland and may represent lobulated prostate gland and prominent median lobe protruding into the base of the bladder. Difficult to exclude a bladder mass. This is similar to prior CT of the abdomen and pelvis April 2024. Bladder wall normal in thickness. No stone. Bilateral ureteral jets are demonstrated. Prevoid bladder volume is 595 mL. Postvoid bladder volume is 286 mL. US/US retroperitoneal comp IMPRESSION: Mild right hydronephrosis. Otherwise normal kidneys. No renal cyst is seen. Question lobulated contour of the prostate gland and prominent median lobe measuring 2.5 x 2.5 x 2.8 cm protruding into the base of the bladder. Difficult to exclude bladder mass. This is similar to CT April 2024. Large 286 mL post void bladder residual. Electronically signed by: Shawnee Silva MD 06/24/2025 03:33 PM EDT
--- OUTSIDE RECORDS SUMMARY | 2025-06-24 18:19 | XMS_ITS | Clinical Summary ---
Author Organization [facility] Address [address] [address] Phone Care Team Providers Care Foot Gatherer Name Role Phone Pcp, Unknown Primary Care [...] file Insurance [facility] A & [facility] MEDIC[facility] PART A & B Member Subscriber Plan / Payer ( fective 2006-Present) Name:Davon Patel Member ID:[id number] Relation to Subscriber:Self Name:Davon Patel Subscriber ID:[id number] Payer ID:[id number] Group ID:Not on file Type:Medicare Address: [employer] [address] [place] [address] MEDICARE PART A & B MEDICARE PART A & B HEALTH MEDICARE PART A & B HEALTH MEDICARE PART A & B HEALTH MEDICARE PART A & B MEDICARE PART A & B [facility] Care Teams Foot Gatherer Relationship Specialty Start Date End Date Pcp, Unknown PCP - General 06/05/19 Additional Source Comments The information contained in this document represents components of the legal health record. It is not the complete legal health record.[facility]
--- OUTSIDE RECORDS SUMMARY | 2025-06-24 18:19 | XMS_ITS | Clinical Summary ---
Author Organization [employer] Address [address] [facility] [address] [place] [address] Care Team Providers Care Firmware Software Verification Engineer Name Role Phone Name, Nikhil VILLAREAL Primary Care Provider [phone] Allergies No known active allergies Medications sertraline [...] Encounters Date Type Department Care Team Description 06/17/2025 Telephone [facility] [address] [place] [address] Nikhil Blankenship MD 06/17/2025 Telephone [facility] [place] [address] Bonita Chatman [place] july recalls 06/02/2025 Telephone [facility] [place] [address] Nikhil Blankenship MD Referral (Pt requesting referral for endoscopy , pt had an appointment 04/21/2025 and forgot to mention to doctor that he wants a endoscopy ) 04/21/2025 3:45 PM EDT Office Visit [facility] [place] [address] Nikhil Blankenship MD Paresthesia of foot, bilateral (Primary Dx); Anemia, unspecified type; Encounter for screening for malignant neoplasm of colon; Renal cyst; Post-nasal drip 04/21/2025 Travel 04/20/2025 Telephone [facility] [place] [address] Irene Rachel MA CHARTPREP 04/20/2025 Travel from [...] 04/21/2025 3:35 PM EDT Plan of Treatment Upcoming Encounters Date Type Department Care Team (Late st Contact Info) Description 09/06/2025 1:30 PM EST Office Visit [facility] [address] [place] [phone] Name, MD Nikhil [address] [place] [address] Health Maintenance Due Date Last Done Comments [...] Procedure Name Priority Date/Time Associated Diagnosis Comments US RETROPERITONEAL COMPLETE Routine 06/24/2025 2:50 PM EDT Renal cyst NERVE CONDUCTION TEST Routine 06/15/2025 Paresthesia of foot, bilateral IMMUNOFIXATION, SERUM Routine 04/22/2025 1:34 PM EDT [...] Recently Relevant to Health Maintenance Results * US Retroperitoneal Complete (06/24/2025 2:50 PM EDT) Anatomical Region Laterality Modality Ultrasound 06/24/2025 2:50 PM EDT Narrative 06/24/2025 3:36 PM EDT [place] [address] Ultrasound Report Signed Patient: Davon Patel MR#: [id number] 37 : 1960 Acct:[id number] Age/Sex: 65 / M ADM Date: 06/24/25 Loc: HO.US Attending Dr: Nikhil Blankenship MD Ordering Physician: Nikhil Blankenship MD Date of Service: 06/24/25 Procedure(s): US retroperitoneal comp Accession Number(s): [id number] cc: Nikhil Blankenship MD Reason for Exam: history of renal cysts EXAMINATION: US RETROPERITONEAL COMPLETE (RENAL) CLINICAL INFORMATION: Renal cysts. COMPARISON: Previous CT of the abdomen and pelvis April 2024 and abdominal ultrasound most recent September 2022 TECHNIQUE: Real-time imaging of the kidneys and bladder. FINDINGS: RIGHT KIDNEY: 10.9 x 4.6 x 5.9 cm (SAG x AP x TRV). The kidney is normal in size, contour, and echogenicity. Renal cortical thickness is normal. No calculi or focal parenchymal lesions. No hydronephrosis. LEFT KIDNEY: 10.7 x 6.2 x 5.1 cm (SAG x AP x TRV). The kidney is normal in size, contour, and echogenicity. Renal cortical thickness is normal. No calculi or focal parenchymal lesions. Mild hydronephrosis. BLADDER: 2.5 x 2.5 x 2.8 cm soft tissue mass at the trigone. This is continuous with the prostate gland and may represent lobulated prostate gland and prominent median lobe protruding into the base of the bladder. Difficult to exclude a bladder mass. This is similar to prior CT of the abdomen and pelvis April 2024. Bladder wall normal in thickness. No stone. Bilateral ureteral jets are demonstrated. Prevoid bladder volume is 595 mL. Postvoid bladder volume is 286 mL. US/US retroperitoneal comp IMPRESSION: Mild right hydronephrosis. Otherwise normal kidneys. No renal cyst is seen. Question lobulated contour of the prostate gland and prominent median lobe measuring 2.5 x 2.5 x 2.8 cm protruding into the base of the bladder. Difficult to exclude bladder mass. This is similar to CT April 2024. Large 286 mL post void bladder residual. Electronically signed by: Shawnee Silva MD 06/24/2025 03:33 PM EDT Dictated By: Shawnee Silva MD Signed By: <Electronically signed by Shawnee Silva MD in OV> 06/24/25 1533 DD/ 1450 TD/TT: 06/24/25 1510 Short Haul Driver: CELENA Procedure Note Donotuseinterpreter, Image - 06/24/[address] [address] Ultrasound Report Signed Patient: Davon Patel [facility]#: [id number] 37 : 9Acct:[id number] Age/Sex: 65 / MADM Date: 06/24/25 Loc: HO.US Attending Dr: Nikhil Blankenship MD Ordering Physician: Nikhil Blankenship MD Date of Service: 06/24/25 Procedure(s): US retroperitoneal comp Accession Number(s): [id number] cc: Name,Nikhil VILLAREAL Reason for Exam: history of renal cysts EXAMINATION: US RETROPERITONEAL COMPLETE (RENAL) CLINICAL INFORMATION: Renal cysts. COMPARISON: Previous CT of the abdomen and pelvis April 2024 and abdominal ultrasound most recent September 2022 TECHNIQUE: Real-time imaging of the kidneys and bladder. FINDINGS: RIGHT KIDNEY: 10.9 x 4.6 x 5.9 cm (SAG x AP x TRV). The kidney is normal in size, contour, and echogenicity. Renal cortical thickness is normal. No calculi or focal parenchymal lesions. No hydronephrosis. LEFT KIDNEY: 10.7 x 6.2 x 5.1 cm (SAG x AP x TRV). The kidney is normal in size, contour, and echogenicity. Renal cortical thickness is normal. No calculi or focal parenchymal lesions. Mild hydronephrosis. BLADDER: 2.5 x 2.5 x 2.8 cm soft tissue mass at the trigone. This is continuous with the prostate gland and may represent lobulated prostate gland and prominent median lobe protruding into the base of the bladder. Difficult to exclude a bladder mass. This is similar to prior CT of the abdomen and pelvis April 2024. Bladder wall normal in thickness. No stone. Bilateral ureteral jets are demonstrated. Prevoid bladder volume is 595 mL. Postvoid bladder volume is 286 mL. US/US retroperitoneal comp IMPRESSION: Mild right hydronephrosis. Otherwise normal kidneys. No renal cyst is seen. Question lobulated contour of the prostate gland and prominent median lobe measuring 2.5 x 2.5 x 2.8 cm protruding into the base of the bladder. Difficult to exclude bladder mass. This is similar to CT April 2024. Large 286 mL post void bladder residual. Electronically signed by: Shawnee Silva MD 06/24/2025 03:33 PM EDT Dictated By: Shawnee Silva MD Signed By: <Electronically signed by Shawnee Silva MD in OV> 06/24/25 1533 DD/ 1450 TD/TT: 06/24/25 1510 Short Haul Driver: CELENA Nikhil Name IMG US PROCEDURES Edited Result - Final * Nerve conduction test (06/15/2025) us Nikhil Name NEUROLOGY ORDERABLES Final Resul t * PSA, Screen (04/22/2025 1:34 PM EDT) Pathologist [facility] PSA, Total 0.60 <0.05 - 4.0 ng/mL [facility] Comment:PSA methodology: Ministerio simms Alikanchan i ChemiluminescentMicroparticle Immunoassay (CMIA) 04/22/2025 1:34 PM EDT 04/22/2025 4:20 PM EDT Generic External Data Provider LAB BLOOD ORDERAB LES Final Result [facility] [address] [place] [phone] * Vitamin D, 25-Hydroxy, Total, Immunoassay (04/22/2025 1:34 PM EDT) [facility] Vitamin D 25-OH Total 30.4 >30 ng/mL [facility] Comment: Health Based Reference Values*< 20 ng/mL [id number] ng/mL Insufficient> 30 ng/mL Sufficient*Adalid RECINOS. N [...] ORDERAB LES Final Result Performing Organization Address City/[facility]/ZIP Co de Phone Number [facility] [address] [place] [phone] * Vitamin B12 (Cobalamin) and Folate Panel, Serum (04/22/2025 1:34 PM EDT) Only the most recent of2 resultswithin the time period is included. [facility] Vitamin B12 463 200 - 900 pg/mL [facility] Comment:NORMAL 200-900 PG/ML INDETERMINATE 160-199 PG/ML DEFICIENT < 160 PG/ML Folate 6.7 > or = 4.0 ng/mL [facility] Comment:Reference Values:> o r = 4.0 ng/mL< 4.0 ng/mL suggests folate deficiency Methotrexate, aminopterin and folinic acid(leucovorin) are chemotherapeutic agents whose molecularstructures are similar to folate; therefore, the Architectfolate assay cannot be used for patients using these drugs. 04/22/2025 1:34 PM EDT 04/22/2025 4:20 PM EDT Generic External Data Provider LAB BLOOD ORDERAB LES Final Result Performing Organization Address [facility] Co de Phone Number [facility] [address] [place] [phone] * (ABNORMAL) CBC auto differential (04/22/2025 1:34 PM EDT) [facility] White Blood Count 4.2(L) 4.8 - 10.8 X10*3/uL [facility] Red Blood Count 4.22(L) 4.60 - 5.80 X10*6/uL [facility] Hemoglobin 13.7(L) 14.0 - 18.0 g/dl [facility] Hematocrit 39.2(L) 42.0 - 52.0 % [facility] Mean Corpuscular Volume 92.9 80.0 - 98.0 fL [facility] Mean Corpuscular Hemoglobin 32.5 27.0 - 33.0 pg [facility] Mean Corpuscular HGB Conc 34.9 31.0 - 36.0 g/dl [facility] Red Cell Distribution Width 12.5 11.0 - 16.0 % [facility] Platelet Count 149(L) 160 - 400 X10*3/uL [facility] Mean Platelet Volume 10.5 9.4 - 12.4 fL [facility] Neutrophils Percent Auto 57.8 45 - 73 % [facility] Imm Gran Pct Auto 0.2 0.0 - 0.4 % [facility] Lymphocytes Percent Auto 30.8 20 - 40 % [facility] Monocytes Percent Auto 9.6 2 - 11 % [facility] Eosinophils Percent Auto 1.4 0 - 4 % [facility] Basophils Percent Auto 0.2 0 - 2 % [facility] NRBC Pct Auto 0.0 0.0 - 0.2 /100WBC [facility] Neutrophils Absolute Auto 2.4 2.0 - 8.3 x10*3/uL [facility] Imm Gran Abs Auto 0.01 0.00 - 0.03 X10*3/uL [facility] Lymphocytes Absolute Auto 1.3 1.2 - 4.9 X10*3/uL [facility] Monocytes Absolute Auto 0.4 0.1 - 1.2 X10*3/uL [facility] Eosinophils Absolute Auto 0.1 0.0 - 0.4 X10*3/uL [facility] Basophils Absolute Auto 0.0 0.0 - 0.2 X10*3/uL [facility] NRBC Abs Auto 0.000 0.0 - 0.012 X10*3/uL [facility] 04/22/2025 1:34 PM EDT 04/22/2025 4:20 PM EDT Generic External Data Provider LAB BLOOD ORDERAB LES Final Result Performing Organization Address [facility] Co de Phone Number [facility] [address] [place] [phone] * Iron And Total Iron Binding Capacity (04/22/2025 1:34 PM EDT) Iron 89 45 - 160 mcg/dL [facility] Total Iron Binding Capacity 324 228 - 428 mcg/dL [facility] Percent Iron Saturation 27 15 - 50 % [facility] Unsaturated Iron Binding 235 ug/dL [facility] 04/22/2025 1:34 PM EDT 04/22/2025 4:20 PM EDT Generic External Data Provider LAB BLOOD ORDERAB LES Final Result Performing Organization Address [facility] de Phone Number [facility] [address] [place] [phone] * (ABNORMAL) Immunofixation, Serum (04/22/2025 1:34 PM EDT) IMMUNOGLOBULIN G 1706(A) 600 - 1540 mg/dL [facility] IMMUNOGLOBULIN A 167 70 - 320 mg/dL [facility] Immunoglobulin M 158 50 - 300 mg/dL [facility] Comment:THIS TEST WAS PERFOR MED AT:[employer] [place] [phone] HEWITT MD Immunofixation Result [facility] Comment:No monoclonal protei ns detected. 04/22/2025 1:34 PM EDT 04/22/2025 4:20 PM EDT Generic External Data Provider LAB BLOOD ORDERAB LES Final Result Performing Organization Address [facility]/ZIP Co de Phone Number [facility] [address] [place] [phone] * Ferritin (04/22/2025 1:34 PM EDT) Ferritin 65 20 - 250 ng/mL [facility] 04/22/2025 1:34 PM EDT 04/22/2025 4:20 PM EDT us Generic External Data Provider LAB BLOOD ORDERAB LES Final Result [facility] [address] [place] [phone] * (ABNORMAL) Comprehensive Metabolic Panel (04/22/2025 1:34 PM EDT) Pathologist [facility] Sodium 140 135 - 145 mmol/L [facility] Potassium 3.9 3.3 - 5.1 mmol/L [facility] Chloride 106 96 - 108 mmol/L [facility] Carbon Dioxide 25 22 - 29 mmol/L [facility] Anion Gap 13 12 - 20 [facility] Urea Nitrogen (BUN) 19(H) 9 - 16 mg/dL [facility] Creatinine, Serum 0.96 0.5 - 1.4 mg/dL [facility] Estimated Glomerular Filt Rate >60 [facility] Comment:Chronic Kidney Disea se: Estimated GFR < 60 mL/min/1.13d4Rnawbt Kidney Disease: Estimated GFR < 15 mL/min/1.73m2 Glucose 103 60 - 115 mg/dL [facility] Calcium 9.4 8.4 - 10.2 mg/dL [facility] Bilirubin, Total 1.0 0.0 - 1.0 mg/dL [facility] Aspartate Amino Transferase 43(H) 5 - 37 U/L [facility] Alanine Aminotransferase 45(H) 0 - 40 U/L [facility] Total Protein 7.6 6.5 - 8.0 g/dL [facility] Albumin Level 4.6 3.5 - 5.0 g/dL [facility] Alkaline Phosphatase 56 39 - 117 U/L [facility] 04/22/2025 1:34 PM EDT 04/22/2025 4:20 PM EDT Generic External Data Provider LAB BLOOD ORDERAB LES Final Result Performing Organization Address [facility]/ZIP Co de Phone Number [facility] [address] [place] [phone] * Hepatitis C Antibody with Reflex to HCV, RNA, Quantitative, Real-Time PCR (12/31/2024 11:20 AM EDT) Hepatitis C Antibody Nonreactive Nonreactive [facility] Comment:Antibodies to HCV no t detected; does not exclude early acuteHCV infection. Blood Venous blood specimen / Unknown 12/31/2024 11:20 AM EDT 12/31/2024 1:05 PM EDT Nikhil Blankenship MD LAB BLOOD ORDERABLES Final Resul t Performing Organization Address [facility]/ZIP Co de Phone Number [facility] [address] [place] [phone] * Lipid Panel, Standard (12/31/2024 11:20 AM EDT) Triglycerides 99 <150 mg/dL [facility] Comment:Desirable Triglyceri de: less than 150 mg/dLBorderline High Triglyceride 150-199 mg/dLHigh Triglyceride: 200-499 mg/dLVery High Triglyceride: greater than or equal to 5OO mg/dL Cholesterol 147 <200 mg/dL [facility] Comment:Desirable Cholestero l: less than 200 mg/dLBorderline High Cholesterol: 200-239 mg/dLHigh Cholesterol: greater than 239 mg/dL LDL Cholesterol Calculated 85 <100 mg/dL [facility] Comment:Desirable LDL: less than 100 mg/dLNear Optimal/Above Optimal LDL: 110- 129 mg/dLBorderline High LDL: 130-159 mg/dLHigh LDL: 160-189 mg/dLVery High LDL: greater than or equal to 190 mg/dL HDL Cholesterol 43 >40 mg/dL [facility] Comment:Desirable HDL: great er than 40 mg/dL Note: This HDL assay may give artificially low results in patients with liver disease. Blood Venous blood specimen / Unknown 12/31/2024 11:20 AM EDT 12/31/2024 1:05 PM EDT Nikhil Blankenship MD LAB BLOOD ORDERABLES Final Resul t [facility] [address] [place] [phone] from Last 3 Months or Most Recently Relevant to Health Maintenance Insurance [employer] (O D-SNP) [place] [id number] Care Teams Firmware Software Verification Engineer Relationship Specialty Start Date End Date Name, MD Nikhil [address] [place] [phone] PCP - General Internal Medicine 12/31/24
--- OUTSIDE RECORDS SUMMARY | 2025-06-24 18:19 | XMS_ITS | Encounter Summary ---
Author Organization [email or web address] Address [address] [facility] [address] [place] [address] Care Team Providers Care Sign Hanger Supervisor Name Role Phone Name, Nikhil VILLAREAL Primary Care Provider [phone] Reason for Visit * Reason Onset Date Comments New Patient 04/30/2024 Encounter Details Date Type Department Care Team ([facility] st Contact Info) Description 04/30/2024 Telephone [facility] [address] [place], [place] [phone] Dank Rose MD [address] [place] [address] New Patient Social History Tobacco Use Types [...] 10:17 AM EDT Patient added to [facility] New Patient wait list as 04/30/2024 * Telephone Encounter - Aakash Longoria - 04/30/2024 9:31 AM EDT TC from caller requesting NEW PATIENT visit . Medical Conditions: None stated Insurance name: CCA Location: [facility] Demographic information updated documented in this encounter Plan of Treatment Upcoming Encounters Date Type Department Care Team (Late st Contact Info) Description 09/06/2025 1:30 PM EST Office Visit [facility] [address] [place] [address] Name, MD Nikhil [address] [place] [phone] documented as of this encounter Visit Diagnoses Not on filedocumented in this encounter Care Teams Sign Hanger Supervisor Relationship Specialty Start Date End Date Name, MD Nikhil [address] [place] [phone] PCP - General Internal Medicine 12/31/24 documented as of this encounter
--- OUTSIDE RECORDS SUMMARY | 2025-06-24 18:19 | XMS_ITS | Encounter Summary ---
Author Organization [employer] [facility] Address [address] [facility] [address]t [place] [address] Care Team Providers Care Seafood Harvester Name Role Phone Name, Nikhil VILLAREAL Primary Care Provider [phone] Encounter Details Date Type Department Care Team (Late st Contact Info) Description 08/23/2022 Orders Only [facility] [address] [place] [address] Tomasa Lion LPN Social History Tobacco Use Types Packs/Day Years Used Date Smoking Tobacco: Never Assessed Sex and Gender Information Value Date Recorded Sex Assigned at Male 07/02/2022 10:30 AM EDT Legal Sex Male 10:30 AM EDT Gender Identity Male 07/02/2022 10:30 AM EDT Sexual Orientation Straight 07/02/2022 10 :30 AM EDT documented as of this encounter Plan of Treatment Upcoming Encounters Date Type Department Care Team (Late st Contact Info) Description 09/06/2025 1:30 PM EST Office Visit [facility] [address] [place] [address] NameNikhil MD [address] [place] [address] documented as of this encounter Visit Diagnoses Not on filedocumented in this encounter Care Teams Seafood Harvester Relationship Specialty Start Date End Date Nikhil Blankenship MD [address] [place] [phone] PCP - General Internal Medicine 12/31/24 documented as of this encounter
--- OUTSIDE RECORDS SUMMARY | 2025-06-24 18:19 | XMS_ITS | Encounter Summary ---
Author Organization [employer] [facility] Address [address] [facility] [address]t [place] [address] Care Team Providers Care Occupational Therapy Technician Name Role Phone Name, Nikhil VILLAREAL Primary Care Provider [phone] Encounter Details Date Type Department Care Team (Latest Contact Info) Description 07/20/2019 Abstract [facility] Dental, Provider, DDS Social History Tobacco [...] Description 09/06/2025 1:30 PM EST Office Visit [facility] [address] [place] [address] Name, MD Nikhil [address] [place] [address] documented as of this encounter Visit Diagnoses Not on filedocumented in this encounter Care Teams Occupational Therapy Technician Relationship Specialty Start Date End Date NameNikhil MD [address] [place] [address] PCP - General Internal Medicine 12/31/24 documented as of this encounter
--- OUTSIDE RECORDS SUMMARY | 2025-06-24 18:19 | XMS_ITS | Encounter Summary ---
Author Organization [employer] [facility] Address [address] [place] [address] [address] [place] [address] Care Team Providers Care Sewer System Supervisor Name Role Phone Name, Nikhil VILLAREAL Primary Care Provider Reason for Visit * Reason Comments Med Refill Encounter Details Date Type Department Care Team (Late Contact Info) Description 04/30/2023 Refill [facility] [address] [place] [phone] NameNikhil MD [address] [place] [phone] Social History Tobacco Use Types Packs/Day Years [...] Encounters Date Type Department Care Team (Late Contact Info) Description 09/06/2025 1:30 PM EST Office Visit [facility] [address] [place] [phone] NameNikhil MD [address] [place] [address] [phone] documented as of this encounter Visit Diagnoses Not on filedocumented in this encounter Care Teams Sewer System Supervisor Relationship Specialty Start Date End Date Nikhil Blankenship MD [address] [place] [address] [phone] PCP - General Internal Medicine 12/31/24 documented as of this encounter
== END 2025-06-24 14:28 | disposition home or self-care (01) ==
LOC: HO.US 14:27
PROVIDERS: PCP Internal Medicine Geriatric Medicine; Visit Provider Internal Medicine Geriatric Medicine
DX: N28.1 Cyst of kidney, acquired (principal)
CPT/HCPCS: 76770

== ENCOUNTER → 2025-06-24 14:29 | Outpatient (BNV) | payer OTHER, SELFPAY | PROVIDERS: PCP Internal Medicine Geriatric Medicine; Visit Provider Radiology Diagnostic Radiology | DX: Z87.448 Personal history of other diseases of urinary system (principal) | CPT/HCPCS: 76770 ==

== ENCOUNTER 2025-06-30 15:36 | Outpatient (AMB) | payer OTHER, SELFPAY ==
--- NOTE | 2025-06-30 15:49 | MHC.OFFVIS ---
Intake Visit Reasons: 6m/PSA Intake Note: Patient is present for PSA Follow up Urology Med: Finasteride, Tamsulosin Accompanied by: Self / Same As Patient Allergies No Known Allergies (No Known Allergies*) Allergy (Verified 06/30/25 15:52) HPI Comments Details: Davon is a pleasant male. He is a patient of Dr. Flores. He is seen for the following urologic conditions - lower urinary tract symptoms Six-month follow-up PSA low Bladder emptying Twelve month follow-up Lower urinary tract symptoms Episode of urinary retention 03/23 Initiated alpha-jose luis Has noted retrograde ejaculation Addition finasteride Labs - 10/25 P 0.8, T 612 US left testicular microlithiasis and small varicocele Cystoscopy 06/25 protruding prostate PFSH Medical History PVC (premature ventricular contraction) Hx of simple renal cyst Fatty liver HTN (hypertension) Blurred vision, bilateral Depression Anxiety Surgical History Hx of endoscopy History of colonoscopy Family History Father No problems noted. Mother History of cancer Respiratory failure Pulmonary fibrosis Social History Household Members: None Housing: Apartment Are you a primary critical care transport nurse to a significant other at home: No Do you presently have visiting nurse or other home services: No Alcohol intake: current Alcohol intake frequency: holidays/special occasions only Alcohol type: beer Patient Tobacco Use Status: Never used Tobacco e-Cigarette/Vaping Use: Never Used Second Hand Smoke Exposure: No service: No Current occupational status: disabled Current occupation: right handed Cognitive needs: No Hearing needs: No Vision needs: No Review of Systems Const Denies chills and Denies fever(s) Card Reports no additional complaints and Denies syncope Resp Denies cough GI Denies abdominal pain and Denies heartburn Reports as per HPI and Denies change in libido Neuro Denies syncope Psych Denies change in libido Endo Denies change in libido Physical Exam Const General: cooperative, healthy appearing, comfortable and no acute distress Orientation/consciousness: patient oriented x3 HEENT Face and sinus: Yes normal facial exam Mouth: moist mucous membranes Neck Neck: Yes normal visual inspection, Yes full ROM and Yes trachea midline Chest Chest palpation & inspection: normal inspection of the chest Resp Effort & Inspection: normal respiratory effort, able to speak in complete sentences and no respiratory distress GI Inspection: Yes normal to inspection Back/Spine/Pelvis Cervical Spine: normal cervical lordosis Thoracic/Lumbar Spine: thoracic and lumbar spine normal to inspection Skin General skin exam: no rashes or lesions noted Neuro General: patient oriented x3, gait normal, tone normal and moves all extremities Extrem General: Yes normal to inspection and Yes capillary refill normal Assessment & Plan Assessment & Plan (1) Bladder outlet obstruction: Code(s): N32.0 - Bladder-neck obstruction Category: Medical (2) Complicated urinary tract infection: Code(s): N39.0 - Urinary tract infection, site not specified Category: Medical Plan 12 month follow-up Medications: Refilled tamsulosin 0.4 mg PO BEDTIME 90 caps 3RF 90 days R33.9 - Retention of urine, unspecified finasteride 5 mg PO DAILY 90 tabs 3RF 90 days R33.9 - Retention of urine, unspecified, N40.1 - Benign prostatic hyperplasia with lower urinary tract symptoms, N13.8 - Other obstructive and reflux uropathy Patient Instructions: This note is constructed using voice recognition software. While every effort has been made to ensure accuracy nuclear reactor technician errors may have been included. Imaging studies, laboratory and physical exam results were discussed and reviewed in detail. No major barriers to patient understanding were identified. An opportunity to ask questions regarding the treatment plan was provided. All questions were answered. The patient expressed understanding and agreement with the above treatment plan. The patient is aware they should contact our office by phone for worsening of their current condition or the appearance of new urologic symptoms. Compliance is encouraged with any medications and followup testing that is ordered. It is a privilege to participate in the urologic care of your patient. If you have any questions or concerns regarding treatment for the above conditions, or other urologic issues, please do not hesitate to contact me. The office telephone contact is [phone]. Sincerely, Dr James Singh MD, DANY [facility] - Urology Compassionate Specialist Care for the Genitourinary System Coding Level of Care Code Est Pt Level 3 (91286) Add On Problem Visit Only Diagnoses Bladder outlet obstruction N32.0 Complicated urinary tract infection N39.0
--- OUTSIDE RECORDS SUMMARY | 2025-06-30 19:53 | XMS_ITS | Encounter Summary ---
Author Organization [employer] [facility] Address [address] 7t [place] [address] Care Team Providers Care Drying Oven Tender Name Role Phone Name, Nikhil VILLAREAL Primary Care Provider [phone] Encounter Details Date Type Department Care Team (Latest Contact Info) Description 07/20/2019 Abstract [facility] CONVERSIONS Dental, Provider, DDS Social History [...] Description 09/06/2025 1:30 PM EST Office Visit [facility] MEDICINE [address] [place] [address] Name, MD Nikhil [address] [place] [address] documented as of this encounter Visit Diagnoses Not on filedocumented in this encounter Care Teams Drying Oven Tender Relationship Specialty Start Date End Date NameNikhil MD [address] [place] [address] PCP - General Internal Medicine 12/31/24 documented as of this encounter
--- OUTSIDE RECORDS SUMMARY | 2025-06-30 19:53 | XMS_ITS | Clinical Summary ---
Author Organization [facility] Address [address] [address] Phone Care Team Providers Care Drug Safety Coordinator Name Role Phone Pcp, Unknown Primary Care [...] file Insurance [facility]IC[facility] PART A [facility] & B [facility] MEDICARE PART A & B MEDICARE PART A & B MEDICARE PART A & B HEALTH MEDICARE PART A & B HEALTH MEDICARE PART A & B HEALTH MEDICARE PART A & B MEDICARE PART A & B [facility] Care Teams Drug Safety Coordinator Relationship Specialty Start Date End Date Pcp, Unknown PCP - General 06/05/19 Additional Source Comments The information contained in this document represents components of the legal health record. It is not the complete legal health record.[facility]
--- OUTSIDE RECORDS SUMMARY | 2025-06-30 19:53 | XMS_ITS | Encounter Summary ---
Author Organization [employer] Address [address] [place] [address] Care Team Providers Care Information Technology Project Manager Name Role Phone Name, Nikhil VILLAREAL Primary Care Provider [phone] Reason for Visit * Reason Onset Date Comments New Patient 04/30/2024 Encounter Details Date Type Department Care Team ([facility] st Contact Info) Description 04/30/2024 Telephone [facility] MEDICINE [address] [place], [place] [phone] Dank Rose MD [address] [place], [place] [phone] New Patient Social History Tobacco Use Types [...] 04/30/2024 10:17 AM EDT Patient added to [facility] New Patient wait list as 04/30/2024 * Telephone Encounter - Aakash Longoria - 04/30/2024 9:31 AM EDT TC from caller requesting NEW PATIENT visit . Medical Conditions: None stated Insurance name: CCA Location: [facility] Demographic information updated documented in this encounter Plan of Treatment Upcoming Encounters Date Type Department Care Team (Late st Contact Info) Description 09/06/2025 1:30 PM EST Office Visit [facility] MEDICINE [address] [place] [address] Name, MD Nikhil [address] [place] [phone] documented as of this encounter Visit Diagnoses Not on filedocumented in this encounter Care Teams Information Technology Project Manager Relationship Specialty Start Date End Date Name, MD Nikhil [address] [place] [phone] PCP - General Internal Medicine 12/31/24 documented as of this encounter
--- OUTSIDE RECORDS SUMMARY | 2025-06-30 19:53 | XMS_ITS | Encounter Summary ---
Author Organization [employer] [facility] Address [address] [facility] 7t [place] [address] Care Team Providers Care Choir Singer Name Role Phone Name, Nikhil VILLAREAL Primary Care Provider [phone] Encounter Details Date Type Department Care Team (Late st Contact Info) Description 08/23/2022 Orders Only [facility] [address] [place] [address] Tomasa Lion LPN Social History Tobacco Use [...] Description 09/06/2025 1:30 PM EST Office Visit [facility] [address] [place] [address] NameNikhil MD [address] [place] [address] documented as of this encounter Visit Diagnoses Not on filedocumented in this encounter Care Teams Choir Singer Relationship Specialty Start Date End Date Nikhil Blankenship MD [address] [place] [phone] PCP - General Internal Medicine 12/31/24 documented as of this encounter
--- OUTSIDE RECORDS SUMMARY | 2025-06-30 19:53 | XMS_ITS | Clinical Summary ---
Author Organization [employer] Address [address] [place] [address] Care Team Providers Care Roll Threader Operator Name Role Phone Name, Nikhil VILLAREAL Primary Care Provider Allergies No known active allergies Medications sertraline [...] Type Department Care Team Description 06/17/2025 Telephone [facility] [address] [place] [address] Nikhil Blankenship MD 06/17/2025 Telephone [facility] [place] [address] Bonita Chatman [place] july recalls 06/02/2025 Telephone [facility] [place] [address] Nikhil Blankenship MD Referral (Pt requesting referral for endoscopy , pt had an appointment 04/21/2025 and forgot to mention to doctor that he wants a endoscopy ) 04/21/2025 3:45 PM EDT Office Visit [facility] [place] [place] [address] Nikhil Blankenship MD Paresthesia of foot, bilateral (Primary Dx); Anemia, unspecified type; Encounter for screening for malignant neoplasm of colon; Renal cyst; Post-nasal drip 04/21/2025 Travel 04/20/2025 Telephone [facility] [place] [address] Irene Rachel [place] CHARTPREP 04/20/2025 Travel from [...] Description 09/06/2025 1:30 PM EST Office Visit [facility] [address] [place] [phone] Name, MD Nikhil [address] [place] [address] Health Maintenance Due Date Last Done Comments [...] PM EDT Narrative 06/24/2025 3:36 PM EDT [place] [address] Ultrasound Report Signed Patient: Davon Patel MR#: [id number] 37 : 1960 Acct:[id number] Age/Sex: 65 / M ADM Date: 06/24/25 Loc: HO.US Attending Dr: Nikhil Blankenship MD Ordering Physician: Nikhil Blankenship MD Date of Service: 06/24/25 Procedure(s): US retroperitoneal comp Accession Number(s): [id number] cc: Nikhil Blankenship MD Reason for Exam: [...] 06/24/25 1533 DD/ 1450 TD/TT: 06/24/25 1510 Guest Relations Agent: CELENA Procedure Note Donotuseinterpreter, Image - 06/24/[address] [address] Ultrasound Report Signed Patient: Davon Patel [facility]#: [id number] 37 : 9Acct:[id number] Age/Sex: 65 / MADM Date: 06/24/25 Loc: HO.US Attending Dr: Nikhil Blankenship MD Ordering Physician: Nikhil Blankenship MD Date of Service: 06/24/25 Procedure(s): US retroperitoneal comp Accession Number(s): [id number] cc: Name,Nikhil VILLAREAL Reason for Exam: history [...] 06/24/25 1533 DD/ 1450 TD/TT: 06/24/25 1510 Guest Relations Agent: CELENA Nikhil Name IMG US PROCEDURES Edited Result - Final * Nerve conduction test (06/15/2025) us Nikhil Name NEUROLOGY ORDERABLES Final Resul t * PSA, Screen (04/22/2025 1:34 PM EDT) Pathologist [facility] PSA, Total 0.60 <0.05 - 4.0 ng/mL [facility] Comment:PSA methodology: Ministerio simms Alikanchan i ChemiluminescentMicroparticle Immunoassay (CMIA) 04/22/2025 1:34 PM EDT 04/22/2025 4:20 PM EDT Generic External Data Provider LAB BLOOD ORDERAB LES Final Result [facility] [address] [place] [phone] * Vitamin D, 25-Hydroxy, Total, Immunoassay (04/22/2025 1:34 PM EDT) [facility] Vitamin D 25-OH Total 30.4 >30 ng/mL [facility] Comment: Health Based Reference Values*< 20 ng/mL [id number] ng/mL Insufficient> 30 ng/mL Sufficient*Adalid RECINOS. N [...] ORDERAB LES Final Result Performing Organization Address City/[facility]/ZIP Co de Phone Number [facility] [address] [place] [phone] * Vitamin B12 (Cobalamin) and Folate Panel, Serum (04/22/2025 1:34 PM EDT) Only the most recent of2 resultswithin the time period is included. [facility] Vitamin B12 463 200 - 900 pg/mL [facility] Comment:NORMAL 200-900 PG/ML INDETERMINATE 160-199 PG/ML DEFICIENT < 160 PG/ML Folate 6.7 > or = 4.0 ng/mL [facility] Comment:Reference Values:> o r = 4.0 ng/mL< 4.0 ng/mL suggests folate deficiency Methotrexate, aminopterin and folinic acid(leucovorin) are chemotherapeutic agents whose molecularstructures are similar to folate; therefore, the Architectfolate assay cannot be used for patients using these drugs. 04/22/2025 1:34 PM EDT 04/22/2025 4:20 PM EDT Generic External Data Provider LAB BLOOD ORDERAB LES Final Result Performing Organization Address [facility] Co de Phone Number [facility] [address] [place] [phone] * (ABNORMAL) CBC auto differential (04/22/2025 1:34 PM EDT) [facility] White Blood Count 4.2(L) 4.8 - 10.8 X10*3/uL [facility] Red Blood Count 4.22(L) 4.60 - 5.80 X10*6/uL [facility] Hemoglobin 13.7(L) 14.0 - 18.0 g/dl [facility] Hematocrit 39.2(L) 42.0 - 52.0 % [facility] Mean Corpuscular Volume 92.9 80.0 - 98.0 fL [facility] Mean Corpuscular Hemoglobin 32.5 27.0 - 33.0 pg [facility] Mean Corpuscular HGB Conc 34.9 31.0 - 36.0 g/dl [facility] Red Cell Distribution Width 12.5 11.0 - 16.0 % [facility] Platelet Count 149(L) 160 - 400 X10*3/uL [facility] Mean Platelet Volume 10.5 9.4 - 12.4 fL [facility] Neutrophils Percent Auto 57.8 45 - 73 % [facility] Imm Gran Pct Auto 0.2 0.0 - 0.4 % [facility] Lymphocytes Percent Auto 30.8 20 - 40 % [facility] Monocytes Percent Auto 9.6 2 - 11 % [facility] Eosinophils Percent Auto 1.4 0 - 4 % [facility] Basophils Percent Auto 0.2 0 - 2 % [facility] NRBC Pct Auto 0.0 0.0 - 0.2 /100WBC [facility] Neutrophils Absolute Auto 2.4 2.0 - 8.3 x10*3/uL [facility] Imm Gran Abs Auto 0.01 0.00 - 0.03 X10*3/uL [facility] Lymphocytes Absolute Auto 1.3 1.2 - 4.9 X10*3/uL [facility] Monocytes Absolute Auto 0.4 0.1 - 1.2 X10*3/uL [facility] Eosinophils Absolute Auto 0.1 0.0 - 0.4 X10*3/uL [facility] Basophils Absolute Auto 0.0 0.0 - 0.2 X10*3/uL [facility] NRBC Abs Auto 0.000 0.0 - 0.012 X10*3/uL [facility] 04/22/2025 1:34 PM EDT 04/22/2025 4:20 PM EDT Generic External Data Provider LAB BLOOD ORDERAB LES Final Result Performing Organization Address [facility] Co de Phone Number [facility] [address] [place] [address] [phone] * Iron And Total Iron Binding Capacity (04/22/2025 1:34 PM EDT) Iron 89 45 - 160 mcg/dL [facility] Total Iron Binding Capacity 324 228 - 428 mcg/dL [facility] Percent Iron Saturation 27 15 - 50 % [facility] Unsaturated Iron Binding 235 ug/dL [facility] 04/22/2025 1:34 PM EDT 04/22/2025 4:20 PM EDT Generic External Data Provider LAB BLOOD ORDERAB LES Final Result Performing Organization Address [facility] de Phone Number [facility] [address] [place] [phone] * (ABNORMAL) Immunofixation, Serum (04/22/2025 1:34 PM EDT) IMMUNOGLOBULIN G 1706(A) 600 - 1540 mg/dL [facility] IMMUNOGLOBULIN A 167 70 - 320 mg/dL [facility] Immunoglobulin M 158 50 - 300 mg/dL [facility] Comment:THIS TEST WAS PERFOR MED AT:[facility] [place] [phone] HEWITT MD Immunofixation Result [facility] Comment:No monoclonal protei ns detected. 04/22/2025 1:34 PM EDT 04/22/2025 4:20 PM EDT Generic External Data Provider LAB BLOOD ORDERAB LES Final Result Performing Organization Address [facility]/ZIP Co de Phone Number [facility] [address] [place] [phone] * Ferritin (04/22/2025 1:34 PM EDT) Ferritin 65 20 - 250 ng/mL [facility] 04/22/2025 1:34 PM EDT 04/22/2025 4:20 PM EDT us Generic External Data Provider LAB BLOOD ORDERAB LES Final Result [facility] [address] [place] [address] [phone] * (ABNORMAL) Comprehensive Metabolic Panel (04/22/2025 1:34 PM EDT) Pathologist [facility] Sodium 140 135 - 145 mmol/L [facility] Potassium 3.9 3.3 - 5.1 mmol/L [facility] Chloride 106 96 - 108 mmol/L [facility] Carbon Dioxide 25 22 - 29 mmol/L [facility] Anion Gap 13 12 - 20 [facility] Urea Nitrogen (BUN) 19(H) 9 - 16 mg/dL [facility] Creatinine, Serum 0.96 0.5 - 1.4 mg/dL [facility] Estimated Glomerular Filt Rate >60 [facility] Comment:Chronic Kidney Disea se: Estimated GFR < 60 mL/min/1.56w4Zbewqr Kidney Disease: Estimated GFR < 15 mL/min/1.73m2 Glucose 103 60 - 115 mg/dL [facility] Calcium 9.4 8.4 - 10.2 mg/dL [facility] Bilirubin, Total 1.0 0.0 - 1.0 mg/dL [facility] Aspartate Amino Transferase 43(H) 5 - 37 U/L [facility] Alanine Aminotransferase 45(H) 0 - 40 U/L [facility] Total Protein 7.6 6.5 - 8.0 g/dL [facility] Albumin Level 4.6 3.5 - 5.0 g/dL [facility] Alkaline Phosphatase 56 39 - 117 U/L [facility] 04/22/2025 1:34 PM EDT 04/22/2025 4:20 PM EDT Generic External Data Provider LAB BLOOD ORDERAB LES Final Result Performing Organization Address [facility]/ZIP Co de Phone Number [facility] [address] [place] [phone] * Hepatitis C Antibody with Reflex to HCV, RNA, Quantitative, Real-Time PCR (12/31/2024 11:20 AM EDT) Hepatitis C Antibody Nonreactive Nonreactive [facility] Comment:Antibodies to HCV no t detected; does not exclude early acuteHCV infection. Blood Venous blood specimen / Unknown 12/31/2024 11:20 AM EDT 12/31/2024 1:05 PM EDT Nikhil Blankenship MD LAB BLOOD ORDERABLES Final Resul t Performing Organization Address [facility]/ZIP Co de Phone Number [facility] [address] [place] [phone] * Lipid Panel, Standard (12/31/2024 11:20 AM EDT) Triglycerides 99 <150 mg/dL [facility] Comment:Desirable Triglyceri de: less than 150 mg/dLBorderline High Triglyceride 150-199 mg/dLHigh Triglyceride: 200-499 mg/dLVery High Triglyceride: greater than or equal to 5OO mg/dL Cholesterol 147 <200 mg/dL [facility] Comment:Desirable Cholestero l: less than 200 mg/dLBorderline High Cholesterol: 200-239 mg/dLHigh Cholesterol: greater than 239 mg/dL LDL Cholesterol Calculated 85 <100 mg/dL [facility] Comment:Desirable LDL: less than 100 mg/dLNear Optimal/Above Optimal LDL: 110- 129 mg/dLBorderline High LDL: 130-159 mg/dLHigh LDL: 160-189 mg/dLVery High LDL: greater than or equal to 190 mg/dL HDL Cholesterol 43 >40 mg/dL [facility] Comment:Desirable HDL: great er than 40 mg/dL Note: This HDL assay may give artificially low results in patients with liver disease. Blood Venous blood specimen / Unknown 12/31/2024 11:20 AM EDT 12/31/2024 1:05 PM EDT Nikhil Blankenship MD LAB BLOOD ORDERABLES Final Resul t [facility] [address] [place] [phone] from Last 3 Months or Most Recently Relevant to Health Maintenance Insurance [facility] [employer] (O D-[employer]) [place] [id number] Care Teams Roll Threader Operator Relationship Specialty Start Date End Date Name, MD Nikhil [address] [place] [phone] PCP - General Internal Medicine 12/31/24
--- OUTSIDE RECORDS SUMMARY | 2025-06-30 19:53 | XMS_ITS | Encounter Summary ---
Author Organization [employer] [facility] Address [address] [place] [address] 7[address] [place] [address] Care Team Providers Care Sign Erector Name Role Phone Name, Nikhil VILLAREAL Primary Care Provider [phone] Reason for Visit * Reason Comments Med Refill Encounter Details Date Type Department Care Team (Late Contact Info) Description 04/30/2023 Refill [facility] [address] [place] [phone] NameNikhil MD [address] [place] [phone] Social History Tobacco Use Types Packs/Day Years [...] Description 09/06/2025 1:30 PM EST Office Visit [facility] [address] [place] [phone] NameNikhil MD [address] [place] [address] [phone] documented as of this encounter Visit Diagnoses Not on filedocumented in this encounter Care Teams Sign Erector Relationship Specialty Start Date End Date Nikhil Blankenship MD [address] [place] [address] [phone] PCP - General Internal Medicine 12/31/24 documented as of this encounter
== END 2025-06-30 16:08 | disposition home or self-care (01) ==
LOC: HO.HUSH 15:37
PROVIDERS: PCP Physician Assistant; Visit Provider Urology
DX: N32.0 Bladder-neck obstruction (principal); N39.0 Urinary tract infection, site not specified
CPT/HCPCS: 99213; G2211

== ENCOUNTER → 2025-06-30 15:36 | Outpatient (BNVA) | payer OTHER, SELFPAY | PROVIDERS: PCP Physician Assistant; Visit Provider Urology | DX: N40.1 Benign prostatic hyperplasia with lower urinary tract symptoms (principal); N13.8 Other obstructive and reflux uropathy; R33.8 Other retention of urine; N39.0 Urinary tract infection, site not specified; Z79.899 Other long term (current) drug therapy | CPT/HCPCS: 99212 ==